=== PATIENT | female | born 1945 ===

== ENCOUNTER 2025-06-29 10:52 | Outpatient (AMB) | payer MEDICARE, OTHER, SELFPAY ==
--- OUTSIDE RECORDS SUMMARY | 2025-06-28 10:43 | XMS_ITS | Encounter Summary ---
Author Organization [facility] Address [address] [place] [address] Care Team Providers Care Renewable Energy Division Manager Name Role Phone Elsewhere, Pcp Primary Care Provider Unavailabl e Reason for Referral * MRI/CAT/PET Scan (Routine) - Closed Specialty Diagnoses / Procedures Referred By Kayla simmons Referred To Contact Radiology Diagnoses Impairment Cognitive Mild Procedures PET MR Brain Focused without IV Contrast Duke Fan M.D. [address] [place] [address] Phone: tel: fax: [facility] Referral ID Status Reason Start Date Expiration Date Visits Re quested Visits Authorized [id number] Closed 06/03/2025 09/03/2026 1 1 * Outpatient (Routine) - Closed Specialty Diagnoses / Procedures Referred By Kayla simmons Referred To Contact Diagnoses Impairment Cognitive Mild Procedures PET MR Brain Focused Amyloid Duke Fan M.D. [address] [place] [address] Phone: tel: fax: [facility] Referral ID Status Reason Start Date Expiration Date Visits Re quested Visits Authorized [id number] Closed 06/03/2025 09/03/2026 1 1 Reason for Visit * Outpatient (Routine) - Closed Specialty Diagnoses / Procedures Referred By Kayla t Referred To Contact Diagnoses Impairment Cognitive Mild Procedures PET MR Brain Focused Amyloid Duke Fan M.D. [address] [place] [address] Phone: tel: fax: [facility] Referral ID Status Reason Start Date Expiration Date Visits Re quested Visits Authorized [id number] Closed 06/03/2025 09/03/2026 1 1 Encounter Details Date Type Department Care Team (Latest Contact Info) Description 06/28/2025 10:43 AM EST - 06/28/2025 11:59 PM [facility] Hospital Encounter Department of Radiology, [facility], in [place], [place] [address] [place] [address] Duke Fan M.D. [address] [place] [address] Impairment Cognitive Mild Discharge Disposition: Home or Self Care Social History Tobacco Use Types Packs/Day Years Used Date Smoking Tobacco: Never Smokeless Tobacco: Never Alcohol Use Standard Drinks/Week Comments Not Currently 0 (1 standard drink = 0.6 oz pur e alcohol) Socially 1 drink [facility] Utilities Answer Date Recorded In the past 12 months has [employer], gas, oil, or water [employer] threatened to shut off services in your home? No 10/06/2024 Hunger Vital Sign Answer Date Recorded Within the past 12 months, y ou worried that your food would run out before you got the money to buy more. Never true 10/07/19 25 Within the past 12 months, t he food you bought just didn't last and you didn't have money to get more. Never true 10/06/2024 PRAPARE - Transportation Answer Date Re corded In the past 12 months, has l ack of transportation kept you from medical appointments or from getting medications? No 08/2024 In the past 12 months, has l ack of transportation kept you from meetings, work, or from getting things needed for daily living? No 10/06/2024 Housing Stability Answer Date Recorded What is your living situation today? 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 No 06/28/2025 10:43 AM Giorgi Saxena Do you use an assisted devic e to walk? (Walker, cane, wheelchair, crutch) No 06/28/2025 10:43 AM Giorgi Mcallister Today, do you feel any of th e following? Weak, dizzy, shaky, or unsteady? No 06/28/2025 10:43 AM Giorgi Gómez Have you taken any medicatio n within the last 6 hours which may make you feel drowsy? Such as sleep, pain, or anxiety medication No 06/28/2025 10:43 AM iGorgi Saxena documented as of this encounter Medications at Time of Discharge esomeprazole (NexIUM) [address] capsule Take 1 capsule (20 mg total) by mouth 2 (two) times a day before morning and evening meals. 60 capsule 3 05/24/2025 rifAXIMin (Xifaxan) 550 mg tabletIndications: Pain Generalized Abdominal,Gastro-E sophageal Reflux Disease With Esophagitis Without Bleeding Take 1 tablet (550 mg total) by mouth 2 (two) times a day. 28 tablet 02/23/2025 Synthroid 88 mcg tablet Take 1 tablet by mouth daily before morning meal. documented as of this encounter Plan of Treatment Upcoming Encounters Date Type Department Care Team (Latest Contact Info) Description 07/21/2025 9:40 AM EST Virtual Visit Preoperative Clinic in [place], [place] [address] [place] [address] Kiki Hood M.D. [address] [place] [address] 08/03/2025 12:00 PM EST Appointment Department of Laboratory Medicine and Pathology, [facility], in [place] [address] [place] [phone] Kiki Hood M.D. [address] [place] [address] 08/03/2025 1:00 PM EST Ancillary Procedure Department of Ophthalmology in [place] [address] [place] [address] Kiki Hood M.D. [facility] [place] [address] 08/03/2025 2:00 PM EST Ancillary Procedure Department of Cardiovascular Diseases in [place] [address] [place] [phone] Kiki Hood M.D. [facility] [place] [address] 08/03/2025 3:20 PM EST Comprehensive Visit Preoperative Clinic in [place] [address] [place] [address] Kiki Hood M.D. [facility] [place] [address] [place] [address] 08/15/2025 8:15 AM EST Hospital Encounter [facility] MAIN OR [facility] [place] [address] Kiki Hood M.D. [facility] [place] [address] 08/15/2025 8:15 AM EST - 08/15/2025 10:45 AM EST Surgery FLA [facility] 01 MAIN OR [address] [place] [address] Kiki Hood M.D. [address] [place] [address] BILATERAL EXTERNAL PTOSIS REPAIR 08/30/2025 3:15 PM EST Office Visit Department of Ophthalmology in [place], [place] [address] [place] [address] Kiki Hood M.D. [address] [place] [address] Scheduled Procedures Name Priority Associated Diagnoses Date/Ti me REPAIR PTOSIS Ptosis Eyelid Bilateral 08/15/2025 8:15 AM EST documented as of this encounter Goals Goal Patient Goal Type Associated Problems Recent Progress Patient-Stated? Author Autogenera abby Goal Care Plan Autogenerated Problem No Ida Chase documented as of this encounter Procedures Procedure Name Priority Date/Time Associated Diagnosis Comments PET MR BRAIN FOCUSED AMYLOID RAD - Routine (most inpatients and all outpatients) 06/28/2025 12:49 PM EST Impairment Cognitive Mild PET MR BRAIN FOCUSED WITHOUT IV CONTRAST RAD - Routine (most inpatients and all outpatients) 06/28/2025 12:49 PM EST Impairment Cognitive Mild documented in this encounter Results * PET MR Brain Focused without IV Contrast (06/28/2025 12:49 PM EST) Anatomical Region Laterality Modality Brain, Neuroradiology RST LO S, Nuclear Medicine ARZ LOS, Neuroradiology ARZ [facility], Neuroradiology [facility] N/A Nuclear Medicine, Magnetic Resonance, Magnetic Resonance Impressions 06/28/2025 3:23 PM EST Stable exam. Mild chronic microvascular ischemic changes. 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 Generalized age-related cerebral volume loss without lobar predilection. Narrative 06/28/2025 3:23 PM EST EXAM: PET MR BRAIN FOCUSED WITHOUT IV CONTRAST COMPARISON: MRI brain 10/23/2024 CT head and neck angiogram 10/23/2024. FINDINGS: No abnormal diffusion restriction. No abnormal foci of susceptibility signal loss to suggest microhemorrhage and cortical siderosis. Scattered foci of T2 FLAIR hyperintensities in the subcortical and periventricular white matter of bilateral cerebral hemisphere consistent with mild chronic microvascular ischemic changes. Mild prominence of the ventricles, cerebral sulci and fissures secondary to generalized brain volume loss expected for patient's age. No asymmetric hippocampi volume loss. No hydrocephalus and extra-axial collection seen. The flow voids within the major intracranial vasculature are preserved. Bilateral orbits normal. Paranasal sinuses and mastoids are clear. Procedure Note Brianna Ramos M.B.B.S., M.D. - 06/28/2025 EXAM: PET MR BRAIN FOCUSED WITHOUT IV CONTRAST COMPARISON: MRI brain 10/23/2024 CT head and neck angiogram 10/23/2024. FINDINGS: No abnormal diffusion restriction. No abnormal foci ofsusceptibility signal loss to suggest microhemorrhage and corticalsiderosis. Scattered foci of T2 FLAIR hyperintensities in the subcorticaland periventricular white matter of bilateral cerebral hemisphereconsistent with mild chronic microvascular ischemic changes. Mildprominence of the ventricles, cerebral sulci and fissures secondary togeneralized brain volume loss expected for patient's age. No asymmetrichippocampi volume loss. No hydrocephalus and extra-axial collection seen.The flow voids within the major intracranial vasculature are preserved.Bilateral orbits normal. Paranasal sinuses and mastoids are clear. IMPRESSION: Stable exam. Mild chronic microvascular ischemic changes. 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 Generalized age-relatedcerebral volume loss without lobar predilection. us [facility] YEPEZ MRI PROCEDURES Final Resu lt * PET MR Brain Focused Amyloid (06/28/2025 12:49 PM EST) Anatomical Region Laterality Modality Brain, Nuclear Medicine PET RST LOS, PET ARZ LOS, Neuroradiology ARZ LOS, Nuclear Medicine PET FLA LOS, Nuclear Medicine N/A Nuclear Medicin e, Magnetic Resonance, Magnetic Resonance Impressions 06/29/2025 9:42 AM EST Abnormal study. 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 This is based on visual assessment despite centiloid value with marked avidity in the left occipital lobe cortex greater than adjacent turner matter as well as global decreased contrast in the cerebral hemispheres. Given the discordance from centiloid score, consider a Tau PET study, if clinically warranted. NOTE: A negative florbetapir study indicates sparse to no neuritic plaques and is considered inconsistent with Alzheimer disease at the time of the study. A negative study reduces the likelihood that the patient's cognitive impairment is due to Alzheimer disease. A positive florbetapir study indicates moderate to frequent neuritic plaques, which is the amount usually present in patients with Alzheimer disease. However, a positive florbetapir study does not establish the diagnosis of Alzheimer disease. Moderate to frequent neuritic plaques can also be present in patients with other neurological conditions as well as in older people with normal cognition. Reference: [email or web address] Narrative 06/29/2025 9:42 AM EST REVISED REPORT: EXAM: PET MR BRAIN FOCUSED AMYLOID RADIOPHARMACEUTICAL/MEDS: Route: intravenous florbetapir F 18 injection (F-18 Amyvid),10.04 millicurie Circulation time: 36 minutes Arms Up or Down: Down TECHNIQUE: PET images of the brain were obtained, with coronal, axial, sagittal and 3D reconstruction with or without AI assistance. Multisequence MR data of the same region was collected for attenuation-correction and anatomic correlation purposes. [email or web address] software was utilized for additional post-processing and analysis, as needed. COMPARISON: MR brain 06/28/2025, 10/13/2024 INDICATION: Undergoing clinical workup for Alzheimer's disease. Initial treatment strategy. FINDINGS: There is normal cortical to white matter contrast in the cerebellum. There is decreased cortical-white matter contrast in the cerebral hemispheres. This is seen in at least 2 regions. Furthermore, there is at least one area of cortical activity greater than adjacent white matter, along the left occipital lobe. Incidental anatomic findings: Limited brain MR performed simultaneously was interpreted separately with report available under accession # [id number]. Centiloid value: 3.2 Procedure Note Esteban Da Silva M.D., M.B.A. - 06/29/2025 REVISED REPORT: EXAM: PET MR BRAIN FOCUSED AMYLOID RADIOPHARMACEUTICAL/MEDS: Route: intravenous florbetapir F 18 injection (F-18 Amyvid),10.04 millicurie Circulation time: 36 minutes Arms Up or Down: Down TECHNIQUE: PET images of the brain were obtained, with coronal, axial,sagittal and 3D reconstruction with or without AI assistance.Multisequence MR data of the same region was collected forattenuation-correction and anatomic correlation purposes. [email or web address] software was utilized for additional post-processing andanalysis, as needed. COMPARISON: MR brain 06/28/2025, 10/13/2024 INDICATION: Undergoing clinical workup for Alzheimer's disease. Initial treatment strategy. FINDINGS: There is normal cortical to white matter contrast in thecerebellum. There is decreased cortical-white matter contrast in the cerebralhemispheres. This is seen in at least 2 regions. Furthermore, there is atleast one area of cortical activity greater than adjacent white matter,along the left occipital lobe. Incidental anatomic findings: Limited brain MR performed simultaneouslywas interpreted separately with report available under accession #[id number]. Centiloid value: 3.2 IMPRESSION: Abnormal study. There is moderate to frequent beta-amyloid neuritic plaqueburden. This is based on visual assessment despite centiloid value withmarked avidity in the left occipital lobe cortex greater than adjacentgray matter as well as global decreased contrast in the cerebralhemispheres. Given the discordance from centiloid score, consider a Tau PET study, ifclinically warranted. NOTE: A negative florbetapir study indicates sparse to no neuritic plaquesand is considered inconsistent with Alzheimer disease at the time of thestudy. A negative study reduces the likelihood that the patient'scognitive impairment is due to Alzheimer disease. A positive florbetapirstudy indicates moderate to frequent neuritic plaques, which is the amountusually present in patients with Alzheimer disease. However, a positiveflorbetapir study does not establish the diagnosis of Alzheimer disease.Moderate to frequent neuritic plaques can also be present in patients withother neurological conditions as well as in older people with normalcognition. Reference: [email or web address] Duke YEPEZ NM PROCEDURES Edited Resu lt - Final documented in this encounter Visit Diagnoses Diagnosis Impairment Cognitive Mild Ptosis Eyelid Bilateral documented in this encounter Administered Medications Inactive Administered Medications - up to 3 most recent administrations Medication Order MAR Action Action Date Dose Rate Site florbetapir F 18 injection (F-18 Amyvid) 9-11 millicurie, intravenous, Once, On Tu06/28/25 at 1115, For 1 dose, Imaging Protocol Orders Given 06/28/2025 11:02 AM EST 10.04 millicuries Right Antecubital documented in this encounter Additional Health Concerns Active Problems Noted Date Diagnosed Date Autogenerated Problem 05/16/2025 documented as of this encounter Care Teams Renewable Energy Division Manager Relationship Specialty Start Date End Date Elsewhere, Pcp PCP - General Internal Medicine 08/25/24 documented as of this encounter
--- OUTSIDE RECORDS SUMMARY | 2025-06-29 10:56 | XMS_ITS | Encounter Summary ---
Author Organization [facility] Address [address] [place] [address] Care Team Providers Care Laborer Heading Name Role Phone Elsewhere, Pcp Primary Care Provider Unavailabl e Reason for Referral * Outpatient (Routine) - Closed Specialty Diagnoses / Procedures Referred By Contact Referred To Contact Gastroenterology and Hepatology Tylor Urbano M.D. [address] [place] [phone] Phone: tel: fax: [facility] Referral ID Status Reason Start Date Expiration Date Visits Re quested Visits Authorized [id number] Closed 05/30/2025 11/29/2026 1 1 Scheduling Instructions Can see FELIPE Encounter Details Date Type Department Care Team (Latest Contact Info) Description 05/30/2025 Clinical Communication Division of Gastroenterology and Hepatology in [place], [place] [address] [place] [phone] Tylor Urbano M.D. [address] [place] [address] Social History Tobacco Use Types Packs/Day Years Used Date Smoking Tobacco: Never Smokeless Tobacco: Never Alcohol Use Standard Drinks/Week Comments Not Currently 0 (1 standard drink = 0.6 oz pur e alcohol) Socially 1 drink [facility] Utilities Answer Date Recorded In the past 12 months has [employer], [employer], or [employer] threatened to shut off services in your [...] your living situation today? I have a 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 [address] [place] [phone] 08/03/2025 12:00 PM EST Appointment Department of Laboratory Medicine and Pathology, [facility], in [address] [phone] Kiki Hood M.D. [address] [place] [phone] 08/03/2025 1:00 PM EST Ancillary Procedure Department of Ophthalmology in [address] [place] [address] Kiki Hood M.D. [address] [place] [phone] 08/03/2025 2:00 PM EST Ancillary Procedure Department of Cardiovascular Diseases in [place], [place] [address] [place] [phone] Kiki Hood M.D. [address] [place] [address] 08/03/2025 3:20 PM EST Comprehensive Visit Preoperative Clinic in [place], [place] [address] [place] [address] Kiki Hood M.D. [address] [place] [address] 08/15/2025 8:15 AM EST Hospital Encounter [facility] 01 MAIN OR [address] [place] [address] Kiki Hood M.D. [address] [place] [address] 08/15/2025 8:15 AM EST - 08/15/2025 10:45 AM EST Surgery [facility] 01 MAIN OR [address] [place] [address] Kiki Hood M.D. [address] [place] [address] BILATERAL EXTERNAL PTOSIS REPAIR 08/30/2025 3:15 PM EST Office Visit Department of Ophthalmology in [place], [place] [address] [place] [phone] Kiki Hood M.D. [address] [place] [phone] Scheduled Procedures Name Priority Associated Diagnoses Date/Ti me REPAIR PTOSIS Ptosis Eyelid Bilateral 08/15/2025 8:15 AM EST Scheduled Referrals Name Type Priority Associated Diagnoses Order Schedule Gastroenterology and Hepatology office visit (clinic) Outpatient Referral Routine Expected: 05/30/2025, Expires: 08/30/2026 documented as of this encounter Goals Goal Patient Goal Type Associated Problems Recent Progress Patient-Stated? Author Autogenera abby Goal Care Plan Autogenerated Problem No Ida Chase documented as of this encounter Visit Diagnoses Not on filedocumented in this encounter Additional Health Concerns Active Problems Noted Date Diagnosed Date Autogenerated Problem 05/16/2025 documented as of this encounter Care Teams Laborer Heading Relationship Specialty Start Date End Date Elsewhere, Pcp PCP - General Internal Medicine 08/25/24 documented as of this encounter
--- OUTSIDE RECORDS SUMMARY | 2025-06-29 10:57 | XMS_ITS | Encounter Summary ---
Author Organization [facility] Address [address] [place] [address] Care Team Providers Care Boarder Hand Name Role Phone Elsewhere, Pcp Primary Care Provider Unavailabl e Encounter Details Date Type Department Care Team (Latest Contact Info) Description 05/30/2025 Clinical Communication Division of Gastroenterology and Hepatology in [place], [place] [address] [place] [address] Tylor Urbano M.D. [address] [place] [address] Social History Tobacco Use Types Packs/Day Years Used Date Smoking Tobacco: Never Smokeless Tobacco: Never Alcohol Use Standard Drinks/Week Comments Not Currently 0 (1 standard drink = 0.6 oz pur e alcohol) Socially 1 drink [facility] Utilities Answer Date Recorded In the past 12 months has e [employer], gas, oil, or water [employer] threatened to shut off services in your [...] your living situation today? 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 [facility] [place] [address] 08/03/2025 12:00 PM EST Appointment Department of Laboratory Medicine and Pathology, [facility] in [place] [address] [place] [phone] Kiki Hood M.D. [facility] [place] [phone] 08/03/2025 1:00 PM EST Ancillary Procedure Department of Ophthalmology in [place] [address] [place] [phone] Kiki Hood M.D. [facility] [place] [address] 08/03/2025 2:00 PM EST Ancillary Procedure Department of Cardiovascular Diseases in [place] [address] [place] [phone] Kiki Hood M.D. [facility] [place] [address] 08/03/2025 3:20 PM EST Comprehensive Visit Preoperative Clinic in [place], [place] [address] [place] [phone] Kiki Hood M.D. [address] [place] [address] 08/15/2025 8:15 AM EST Hospital Encounter [facility] MAIN OR [address] [place] [phone] Kiki Hood M.D. [facility] [place] [phone] 08/15/2025 8:15 AM EST - 08/15/2025 10:45 AM EST Surgery [place] [address] MAIN OR [address] [place] [phone] Kiki Hood M.D. [facility] [place] [address] BILATERAL EXTERNAL PTOSIS REPAIR 08/30/2025 3:15 PM EST Office Visit Department of Ophthalmology in [place] [address] [place] [address] Kiki Hood M.D. [facility] [place] [address] Scheduled Procedures Name Priority Associated Diagnoses Date/Ti [...] documented as of this encounter Care Teams Boarder Hand Relationship Specialty Start Date End Date Elsewhere, Pcp PCP - General Internal Medicine 08/25/24 documented as of this encounter
--- OUTSIDE RECORDS SUMMARY | 2025-06-29 10:57 | XMS_ITS | Encounter Summary ---
Author Organization [facility] Address [address] [place] [address] Care Team Providers Care Guidance Services Coordinator Name Role Phone Elsewhere, Pcp Primary Care Provider Unavailabl e Encounter Details Date Type Department Care Team (Latest Contact Info) Description 06/29/2025 Clinical Communication Division of Gastroenterology and Hepatology in [place], [place] [address] [place] [address] Danielle Brunson, PAlexys-C., M.S. [address] [place] [address] Social History Tobacco Use Types Packs/Day Years Used Date Smoking Tobacco: Never Smokeless Tobacco: Never Alcohol Use Standard Drinks/Week Comments Not Currently 0 (1 standard drink = 0.6 oz pur e alcohol) Socially 1 drink [facility] Utilities Answer Date Recorded In the past 12 months has e [employer], gas, oil, or water [employer] threatened to shut off services in your [...] your living situation today? 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 [facility] [place] [phone] 08/03/2025 12:00 PM EST Appointment Department of Laboratory Medicine and Pathology, [facility] in [place] [address] [place] [address] Kiki Hood M.D. [address] [place], [place] [address] [place] [address] 08/03/2025 1:00 PM EST Ancillary Procedure Department of Ophthalmology in [place] [address] [place] [address] Kiki Hood M.D. [facility] [place] [address] 08/03/2025 2:00 PM EST Ancillary Procedure Department of Cardiovascular Diseases in [place] [address] [place] [phone] Kiki Hood M.D. [facility] [place] [address] 08/03/2025 3:20 PM EST Comprehensive Visit Preoperative Clinic in [place], [place] [address] [place] [phone] Kiki Hood M.D. [address] [place] [phone] 08/15/2025 8:15 AM EST Hospital Encounter [facility] MAIN OR [address] [place] [phone] Kiki Hood M.D. [facility] [place] [address] 08/15/2025 8:15 AM EST - 08/15/2025 10:45 AM EST Surgery [facility] MAIN OR [facility] [place] [address] Kiki Hood M.D. [facility] [place] [phone] BILATERAL EXTERNAL PTOSIS REPAIR 08/30/2025 3:15 PM EST Office Visit Department of Ophthalmology in [place], [place] [address] [place] [phone] Kiki Hood M.D. [facility] [place] [address] Scheduled Procedures Name Priority Associated Diagnoses Date/Ti [...] documented as of this encounter Care Teams Guidance Services Coordinator Relationship Specialty Start Date End Date Elsewhere, Pcp PCP - General Internal Medicine 08/25/24 documented as of this encounter
--- OUTSIDE RECORDS SUMMARY | 2025-06-29 10:57 | XMS_ITS | Clinical Summary ---
[facility] Organization [facility] Address [address] [place] [address] Care Team Providers Care Mandate Retail Service Merchandiser Name Role Phone Tylor Marmolejo MD Primary Care Provider + Allergies Active Allergy Reactions Criticality Noted Date Comments Fexofenadine-Pseudoephed Er 12/15/19 25 Glaucoma Penicillins 07/21/2022 Sulfa Antibiotics 07/21/2022 Medications hydrOXYzine HCl (Atarax) 10 MG tabletIndications :Medication refill Take 1 tablet (10 mg total) by mouth 1 (one) time each day. 30 tablet 2 Active Additional Information Patient not taking.Reported on 05/13/2025 Synthroid 88 MCG tabletIndications :Acquired hypothyroidism Take 1 tablet (88 mcg total) by mouth 1 (one) time each day. 90 tablet 1 Active esomeprazole (NexIUM) [address] capsule TAKE 1 CAPSULE (20 MG TOTAL) BY MOUTH 2 (TWO) TIMES A DAY BEFORE MORNING AND EVENING MEALS. 025 Active omeprazole (PriLOSEC) [address] capsule Take 1 capsule (20 mg total) by mouth before breakfast and before evening meal. Do not crush or chew. Active metroNIDAZOLE (Flagyl) 500 MG tablet Active ketoconazole (NIZOral) 2 % cream APPLY TO RASH ON AFFECTED AREA TWICE DAILY X 2 WEEKS Active fluconazole (Diflucan) 150 MG tablet 11/06/2 025 Active atorvastatin (Lipitor) 40 MG tabletIndications :Mixed hyperlipidemia TAKE 1 TABLET BY MOUTH 1 TIME EACH DAY. 90 tablet 1 025 Active atorvastatin (Lipitor) 40 MG tablet Take 1 tablet (40 mg total) by mouth 1 (one) time each day. 90 tablet 1 025 2024 Discontinued Active Problems Patient Care Coordination No te Formatting of this note migh t be different from the original. SMR-Insurance Alerts: SMR:Medicare - Medicare Secondary, No LT if Neuropathy, Neuritis or Neuroma, No Test and Measures and Group Therapy(TPG) together, 8 vsts after Eval, then Progress Summary, Acupuncture covered, MD signature required Problem Noted Date Diagnosed Date Medicare annual wellness visit, subsequent 04/08 Assessment & Plan (04/08/2025 9:51 AM EDT): Medicare wellness visit note reviewed at length. No falls recently. Unfortunately she does not have a living will. We did discuss the importance of this. She does not smoke. Does not drink any alcohol. Not feeling sad or depressed. She tells me her colonoscopies up-to-date. She had a breast MRI earlier this year which was negative. Immunizations reviewed. She has not really been getting any immunizations. We talked about what she is eligible for which he would be COVID-19, flu vaccine, RSV, Shingrix, Prevnar 20. She says she will think about those. We did talk about the benefits of regular exercise on her 50 minutes per week and a healthy diet. Elevated LFTs 04/08/2025 Assessment & Plan (04/08/2025 9:50 AM EDT): Liver function tests slightly elevated. She was just on a cruise. She was also on an antibiotic. I am not really too concerned about it. But she wants to recheck. So we will do a CMP in the next 4 weeks. Essential hypertension 12/14/2024 Assessment & Plan (04/08/2025 9:49 AM EDT): Initial blood pressure elevated. Repeat blood pressure was good. Continue lifestyle modification for blood pressure control. Assessment & Plan (12/14/2024 9:39 AM EDT): Initial blood pressure was slightly elevated. Repeat was improved. Still meets the definition of hypertension. She is not on any medication currently. No changes here today. Lifestyle modification for blood pressure control encouraged. Recheck 6 months. Labs ordered for 6 months to include CBC, TSH, CMP and lipid panel. Hypertension 12/14/2024 Generalized anxiety disorder 12/14/2024 Carotid disease, bilateral 12/14/2024 Assessment & Plan (04/08/2025 9:49 AM EDT): Most recent carotid ultrasound a few months ago showed less than 50% blockage. Continue to control risk factors aggressively. Assessment & Plan (12/14/2024 9:40 AM EDT): She has a history of carotid artery disease bilaterally. With 50% stenosis on an ultrasound that was done in 2020. Her eye doctor states that she had some vision episodes. They would like to see if she could get another carotid ultrasound. So I did order that. We will contact her with the results. Bursitis of left hip 12/14/2024 Assessment & Plan (12/14/2024 9:41 AM EDT): Being followed by pain management. Apparently she is going to get an injection for her hip. Alteration in vision 12/14/2024 Herniated lumbar intervertebral disc 11/15/2024 Hyperreflexia 11/15/2024 Lumbar radiculopathy 11/15/2024 Numbness of lower extremity 11/15/2024 Sacroiliac joint pain 11/15/2024 Assessment & Plan (04/08/2025 9:48 AM EDT): Has been followed by pain management the [facility]. Assessment & Plan (12/14/2024 9:39 AM EDT): Currently being followed and managed by the [facility] pain management. 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 Little bit worse than before. She has stopped her atorvastatin for about a month because she was not feeling well. She wants to recheck her lipid panel. We are going to ordered again for 4 weeks. Assessment & Plan (12/14/2024 9:41 AM EDT): Lipid panel ordered for 6 months. She is on statin therapy. Assessment & Plan (09/06/2024 8:55 AM EST): She is on statin therapy. Lipid panel ordered. We will contact her with the results. Otherwise I will see her back in 3 months. Valvular heart disease 09/06/2024 Assessment & Plan (04/08/2025 9:48 AM EDT): Currently stable issue. Followed by Cardiology Assessment & Plan (12/14/2024 9:39 AM EDT): Stable issue. Followed by Cardiology. Assessment & Plan (09/06/2024 8:54 AM EST): Stable on followed by Cardiology Vaginal vault hematoma 10/17/2023 Increased frequency of urination 10/16/2023 Bacterial vaginosis 11/08/2022 Vaginal discharge 11/06/2022 Chronic cystitis 09/02/2022 Female cystocele 09/02/2022 Incomplete emptying of bladder 09/02/2022 Incontinence of feces 09/02/2022 Pain in pelvis 09/02/2022 Muscle weakness 09/02/2022 Spasm 09/02/2022 Vaginal atrophy 09/02/2022 Lateral epicondylitis of right elbow 02/20/2022 Enteritis 03/14/2021 Hypothyroidism 03/14/2021 Assessment & Plan (04/08/2025 9:49 AM EDT): TSH normal at 0.509. No change. Continue Synthroid Assessment & Plan (12/14/2024 9:41 AM EDT): Most recent TSH was normal at 1.3. No changes. TSH ordered again for 6 months Assessment & Plan (09/06/2024 8:55 AM EST): TSH ordered. Gastroesophageal reflux disease 03/14/2021 Assessment & Plan (04/08/2025 9:49 AM EDT): Patient had endoscopies. She had esophagitis. She was treated with an antibiotic as well as Nexium. She is feeling much better from this standpoint. This is followed by Gastroenterology. Assessment & Plan (12/14/2024 9:41 AM EDT): She has been seeing Gastroenterology. Currently this is stable but she has stopped taking the famotidine. Assessment & Plan (09/06/2024 8:54 AM EST): She is taking generic famotidine. This is not stable. She continues to have abdominal discomfort. She has seen a senior lead developer. She had a sigmoidoscopy. She may need endoscopy. I can not tell if she has had that. She has been on multiple PPIs as well. She has been in the emergency room for diarrhea as well. She does have an appointment next week with Gastroenterology. I told her she should keep that appointment. She needs to ask them all the same question she asked me. At this point in time I had nothing further to add at this point. Continue with the famotidine for now. But this needs further evaluation by the senior lead developer. We discussed this at length here today. Memory impairment 03/14/2021 Resolved Problems Problem Noted Date Diagnosed Date Resolved Date Borderline high blood pressure 12/14/2024 12/14/2024 Paresis of single lower extremity 11/15/2024 12/14/2024 Encounters Date Type Department Care Team Description 06/29/2025 Refill [facility] at [address] [place] [address] Tylor Marmolejo MD Mixed hyperlipidemia (Primary Dx) 06/17/2025 Telephone [facility] at [address] [place] [phone] Tylor Marmolejo MD 05/16/2025 11:45 AM EST Lab [facility] [address] [place] [phone] Chronic kidney disease, stage 3 unspecified (Primary Dx) 05/13/2025 9:30 AM EST Office Visit [facility] at [address] [place] [address] Levy Marr PA-C Impingement syndrome involving patellar fat pad of right knee (Primary Dx); Chronic pain of right knee 05/13/2025 7:45 AM EST Lab [facility] [address] [place] [phone] Mixed hyperlipidemia; Increased frequency of urination 05/13/2025 Telephone [facility] at [address] [place] [phone] Tylor Marmolejo MD Med Refill 05/13/2025 Results Follow-Up [facility] at [address] [place] [phone] Tylor Marmolejo MD Comprehensive Metabolic Panel (CMP), Lipid Panel, Urinalysis with microscopic and reflex culture, Additional followed-up results: 2 04/29/2025 Telephone [facility] at [address] [place] [address] Tylor Marmolejo MD New Referral Request 04/24/2025 Results Follow-Up [facility] [address] [place] [phone] Ramesh Davies APRN Urine culture 04/22/2025 10:40 AM EDT Office Visit [facility] [address] [place] [phone] Zandra Fung APRN Urinary tract infection without hematuria, site unspecified (Primary Dx); Vaginal discharge 04/21/2025 3:30 PM EDT Evaluation [facility] [place] [address] [place] [phone] Ramakrishna Wall, PT Sprain of medial collateral ligament of right knee, initial encounter (Primary Dx) 04/18/2025 11:30 AM EDT Treatment [facility] [place] [address] [address] Ramakrishna Wall, PT Sprain of medial collateral ligament of right knee, initial encounter (Primary Dx) 04/13/2025 3:00 PM EDT Treatment [facility] [place] [address] [phone] Ton Salinas, JOINER Sprain of medial collateral ligament of right knee, initial encounter (Primary Dx) 04/11/2025 9:30 AM EDT Treatment [facility] [place] [address] [phone] Shree Baptiste, JOINER Sprain of medial collateral ligament of right knee, initial encounter (Primary Dx) 04/08/2025 8:30 AM EDT Office Visit [facility] at [address] [phone] Tylor Marmolejo MD Medicare annual wellness visit, subsequent (Primary Dx); Overweight (BMI 25.0-29.9); Sacroiliac joint pain; Valvular heart disease; Essential hypertension; Bilateral carotid artery disease, unspecified type; Gastroesophageal reflux disease, unspecified whether esophagitis present; Acquired hypothyroidism; Mixed hyperlipidemia; Elevated LFTs; Increased frequency of urination 04/08/2025 Abstract [facility] at [address] [phone] Tylor Marmolejo MD 04/06/2025 11:30 AM EDT Treatment [facility] [place] [address] [phone] Regino Price, PT Sprain of medial collateral ligament of right knee, initial encounter (Primary Dx) 04/04/2025 12:30 PM EDT Treatment [facility] [place] [address] [phone] Regino Price, PT Sprain of medial collateral ligament of right knee, initial encounter (Primary Dx) 03/30/2025 11:30 AM EDT Treatment [facility] [place] [address] [place] [phone] Regino Price, PT Sprain of medial collateral ligament of right knee, initial encounter (Primary Dx) from Last 3 Months Immunizations Immunization Administration Dates Next Due Moderna SARS-CoV-2 Booster Vaccination 05/14/2021,08/17/2020,08/07/2020,2020 Moderna Sars-cov-2 Vaccinati on Abbr...: Moderna Sars* 09/04/2020,07/07/2020 Sars-cov-2, Unspecified 04/06/2021,11/04/2020, Family History Medical History Relation Name Comments Heart attack Father Relation Name Status Comments Father Social History Tobacco Use Types Packs/Day Years Used Date Smoking Tobacco: Never Smokeless Tobacco: Never Tobacco Cessation:Counseling Given: No Alcohol Use Standard Drinks/Week Comments Yes 0 (1 standard drink = 0.6 oz pur e alcohol) AUDIT-C Answer Date Recorded Q1: How often do you have a drink containing alc ohol? Monthly or less 04/08/2025 Q2: How many drinks containi ng alcohol do you have on a typical day when you are drinking? 1 or 2 04/08/2025 Q3: How often do you have si x or more drinks on one occasion? Never 04/08/2025 [facility] Housing Answer Date Recorded Living Situation Not on file 02/20/2023 Housing Problems Not on file 02/20/2023 [facility] Safety Answer Date Recorded Threatened Not on file 02/20/2023 Insulted Not on file 02/20/2023 Physically Hurt Not on file 02/20/2023 Scream Not on file 02/20/2023 Comments No Sex and Gender Information Value Date Recorded Sex Assigned at Not on file Legal Sex Female 2:23 PM EDT Gender Identity Not on file Sexual Orientation Not on file Last Filed Vital Signs Vital Sign Reading Time Taken Comments Blood Pressure 129/75 04/22/2025 10:34 AM EDT Pulse 78 04/22/2025 10:14 AM EDT Temperature 36.7 C (98.1 F) 04/22/2025 10:14 AM EDT Respiratory Rate 18 04/22/2025 10:14 AM EDT Oxygen Saturation 98% 04/22/2025 10:14 AM EDT Inhaled Oxygen Concentration - - Weight 62.1 kg (137 lb) 04/22/2025 10:14 AM EDT Height 152.4 cm (5') 04/22/2025 10:14 AM EDT Body Mass Index 26.76 04/22/2025 10:14 AM EDT Plan of Treatment Upcoming Encounters Date Type Department Care Team (Late st Contact Info) Description 10/11/2025 1:00 PM EDT Office Visit [facility] at [facility] [address] [facility] [place]Note 2] [address] [place] [address] Tylor Marmolejo MD 1 [facility] [place]Note 2] [address] [place] [address] Health Maintenance Due Date Last Done Comments Bone Density Scan 1945 DTaP/Tdap/Td Vaccines (1 - Tdap) 1964 Pneumococcal Vaccine: 50+ Years (1 of 1 - PCV) 1995 Zoster Vaccines (1 of 2) 1995 Respiratory Syncytial Virus (RSV) 60 years and older and/or patients (1 - 1-dose 75+ series) 2020 COVID-19 Vaccine ( season) 2025 05/14/2021, 04/06/2021, 11/04/2020, Additional history exists Depression Screening 04/08/2026 04/08/2025 Medicare Annual Wellness (AWV) 04/08/2026 04/08/2025 Lipid Panel 05/13/2030 05/13/2025, 03/08, 10/14/2024, Additional history exists HPV Vaccines Aged Out No longer eligi ble based on patient's age to complete this topic Hepatitis A Vaccines Aged Out No long er eligible based on patient's age to complete this topic Hepatitis B Vaccines Aged Out No long er eligible based on patient's age to complete this topic Influenza Vaccine Discontinued Meningococcal B Vaccine Aged Out No l onger eligible based on patient's age to complete this topic Meningococcal Vaccine Aged Out No bro matthieu eligible based on patient's age to complete this topic Respiratory Syncytial Virus (RSV) <20 months Aged Out No longer eligible based on patient's age to complete this topic Procedures Procedure Name Priority Date/Time Associated Diagnosis Comments URINALYSIS WITH REFLEX MICROSCOPIC (NO CULTURE) Routine 05/16/2025 11:47 AM EST Chronic kidney disease, stage 3 unspecified BASIC METABOLIC PANEL Routine 05/16/2025 11:45 AM EST Chronic kidney disease, stage 3 unspecified IA ARTHROCENTESIS ASPIR&/INJ MAJOR JT/BURSA W/O US Routine 05/13/2025 10:15 AM EST Impingement syndrome involving patellar fat pad of right knee Chronic pain of right knee BKR MICROSCOPIC, URINE (NUM) Routine 05/13/2025 7:47 AM EST Increased frequency of urination URINALYSIS WITH MICROSCOPIC AND REFLEX CULTURE Routine 05/13/2025 7:47 AM EST Increased frequency of urination URINE CULTURE Routine 05/13/2025 7:47 AM EST Increased frequency of urination LIPID PANEL Routine 05/13/2025 7:42 AM EST Mixed hyperlipidemia COMPREHENSIVE METABOLIC PANEL Routine 05/13/2025 7:42 AM EST Mixed hyperlipidemia URINE CULTURE Routine 04/22/2025 10:51 AM EDT Urinary tract infection without hematuria, site unspecified POC URINALYSIS DIPSTICK Routine 04/22/2025 10:20 AM EDT Urinary tract infection without hematuria, site unspecified TSH Routine 03/30/2025 6:58 AM EDT Acquired hypothyroidism CBC W/AUTO DIFF, REFLEX MANUAL DIFF IF INDICATED Routine 03/30/2025 6:58 AM EDT Essential hypertension LIPID PANEL Routine 03/30/2025 6:58 AM EDT Mixed hyperlipidemia COMPREHENSIVE METABOLIC PANEL Routine 03/30/2025 6:58 AM EDT Mixed hyperlipidemia from Last 3 Months Results * (ABNORMAL) Urinalysis with reflex microscopic (No Culture) (05/16/2025 11:47 AM EST) Color, Urine Light Yellow Colorless, Dark Yellow, Light Yellow, Yellow 05/16/2025 2:11 PM EST [facility] Clarity, Urine Clear Clear 05/16/2025 2:11 PM EST [facility] Leukocyte Esterase, Urine Trace Negative 05/16/2025 2:11 PM EST [facility] Nitrite, Urine Negative Negative 05/16/2025 2:11 PM EST [facility] Urobilinogen, Urine Normal Normal 05/16/2025 2:11 PM EST [facility] Protein, Qual, Urine Negative Negative 05/16/2025 2:11 PM EST [facility] pH, Urine 5.5 5.0 - 7.5 05/16/2025 2:11 PM EST [facility] Blood, Urine Negative Negative, Trace 05/16/2025 2:11 PM EST [facility] Specific [place], Urine <1.005(L) 1.005 - 1.030 05/16/2025 2:11 PM EST [facility] Ketones, Urine Negative Negative 05/16/2025 2:11 PM EST [facility] Bilirubin, Urine Negative Negative 05/16/2025 2:11 PM EST [facility] Glucose, Qual, Urine Normal Negative 05/16/2025 2:11 PM EST [facility] Urine Urine specimen obtained by clean catch procedure / Unknown Non-blood Collection / Unknown 05/16/2025 11:47 AM EST 05/16/2025 11:47 AM EST us Devon Mccray MD LAB URINE ORDERABLES Final Resul t [facility] [address] [place] [address], * Basic Metabolic Panel (05/16/2025 11:45 AM EST) Sodium 138 136 - 145 mmol/L 05/16/2025 2:57 PM EST [facility] Potassium 4.2 3.5 - 5.1 mmol/L 05/16/2025 2:57 PM EST [facility] Chloride 104 98 - 107 mmol/L 05/16/2025 2:57 PM EST [facility] Carbon Dioxide 24.2 22.0 - 29.0 mmol/L 05/16/2025 2:57 PM EST [facility] Anion Gap 10 3 - 20 mmol/L 05/16/2025 2:57 PM EST [facility] Glucose 89 70 - 99 mg/dL 05/16/2025 2:57 PM EST [facility] BUN 20.9 6.0 - 26.0 mg/dL 05/16/2025 2:57 PM EST [facility] Creatinine 0.88 0.70 - 1.20 mg/dL 05/16/2025 2:57 PM EST [facility] BUN/Creatinine Ratio 23.8 05/16/2025 2:57 PM EST [facility] Calcium 9.4 8.8 - 10.2 mg/dL 05/16/2025 2:57 PM EST [facility] Osmolality Calc 269 mosm/kg 2:57 PM EST [facility] eGFR 66.9 >=60.0 mL/min/{1. 73_m2} 05/16/2025 2:57 PM EST [facility] Comment: GFR calculated based on CKD-EPI 2020 Creatinine Equation Age (Years) Average GFR 20-29 116 mL/min/1.73 m2 30-39 107 mL/min/1.73 m2 40-49 99 mL/min/1.73 m2 50-59 93 mL/min/1.73 m2 60-69 85 mL/min/1.73 m2 70+ 75 mL/min/1.73 m2 Acceptable GFR: >= 60 mL/min/1.73 m2 Chronic Kidney Disease: <60 mL/min/1.73 m2 Kidney Failure: <15 mL/min/1.73 m2 Blood Venous blood specimen / Unknown 05/16/2025 11:45 AM EST 05/16/2025 11:45 AM EST Devon Mccray MD LAB BLOOD [place] [id number], * [place] ARTHROCENTESIS ASPIR&/INJ MAJOR JT/BURSA W/O US (05/13/2025 10:15 AM EST) Narrative Levy Marr PA-C - 05/13/2025 10:15 AM EST Levy Marr PA-C 05/13/2025 10:52 AM Large joint Injection or Arthrocentesis: R knee Date/Time: 05/13/2025 10:15 AM Performed by: Levy Marr PA-C Authorized by: Lvey Marr PA-C Procedure discussed: discussed risks, benefits, and alternatives Consent Given by: Patient Timeout: timeout called immediately prior to procedure Prep: patient was prepped and draped in usual sterile fashion Indications: Pain Needle Size: 22 G Guidance: No device used Approach: Superior and medial Location: Knee Laterality: Right Site: R knee Anesthesia: Anesthesia method: Topical application Topical anesthetic: Ethyl chloride spray Anesthetics: 2 mL lidocaine 1 %; 2 mL ropivacaine 0.5% Steroids: 1 mL methylPREDNISolone acetate 40 MG/ML Specimen collected: no Post-procedure details: Dressing: Adhesive bandage Procedure completion: Tolerated well, no immediate complications Procedure: The skin was prepped in the sterile fashion. Topical anesthesia was achieved with ethyl chloride. A 25 gauge needle was inserted into the joint via anterior medial approach. The site was injected with a mixture of 2 mL of 1% lidocaine, 40 mg methylprednisolone. The injection was administered without difficulty or complication, and a bandage was applied. The patient tolerated the procedure well and was instructed to avoid strenuous activity for the next 24 hours and to use ice, NSAIDs, or Tylenol for pain as needed. The patient will call immediately with any signs of infection or allergic reaction. Levy Marr PA-C IN CLINIC/BEDSIDE ORDER ROSLYN Final Result * Microscopic, urine (05/13/2025 7:47 AM EST) RBC, Urine 1 <=5 /HPF 05/13/2025 11:38 AM EST [facility] WBC, Urine 1 <=5 /HPF 05/13/2025 11:38 AM EST [facility] Bacteria, Urine None Seen None Seen /HPF 05/13/2025 11:38 AM EST [facility] Urine Urine specimen obtained by clean catch procedure / Unknown Non-blood Collection / Unknown 05/13/2025 7:47 AM EST 05/13/2025 7:47 AM EST Tylor Marmolejo MD LAB URINE ORDERABLES Fin al Result [facility] [address] [place] [address], * (ABNORMAL) Urinalysis with microscopic and reflex culture (05/13/2025 7:47 AM EST) Color, Urine Light Yellow Colorless, Dark Yellow, Light Yellow, Yellow 05/13/2025 11:38 AM EST [facility] Clarity, Urine Clear Clear 05/13/2025 11:38 AM EST [facility] Leukocyte Esterase, Urine 2+(A) Negative 05/13/2025 11:38 AM EST [facility] Nitrite, Urine Negative Negative 05/13/2025 11:38 AM EST [facility] Urobilinogen, Urine Normal Normal 05/13/2025 11:38 AM EST [facility] Protein, Qual, Urine Negative Negative 05/13/2025 11:38 AM EST [facility] pH, Urine 7.5 5.0 - 7.5 05/13/2025 11:38 AM EST [facility] Blood, Urine Negative Negative, Trace 05/13/2025 11:38 AM EST [facility] Specific [place], Urine 1.008 1.005 - 1.030 05/13/2025 11:38 AM EST [facility] Ketones, Urine Negative Negative 05/13/2025 11:38 AM [facility] Bilirubin, Urine Negative Negative 05/13/2025 11:38 AM [facility] Glucose, Qual, Urine Normal Negative 05/13/2025 11:38 AM [facility] Urine Urine specimen obtained by clean catch procedure / Unknown Non-blood Collection / Unknown 05/13/2025 7:47 AM EST 05/13/2025 7:47 AM EST Tylor Marmolejo MD LAB URINE ORDERABLES Fin al Result Performing Organization Address City/State/[facility] [place] [address], * Urine culture (05/13/2025 7:47 AM EST) Only the most recent of2 resultswithin the time period is included. Urine Culture Mixed Urogenital Emerita; probable contaminants, suggest recollection 05/15/2025 12:35 AM EST [facility] Urine Urine specimen obtained by clean catch procedure / Unknown Non-blood Collection / Unknown 05/13/2025 7:47 AM EST 05/13/2025 11:38 AM EST Tylor Marmolejo MD LAB MICROBIOLOGY - GENER AL ORDERABLES Final Result [facility] [address] [place] [address], * Lipid Panel (05/13/2025 7:42 AM EST) Only the most recent of2 resultswithin the time period is included. Triglycerides 88 <=150 mg/dL 05/13/2025 1:29 PM EST [facility] Cholesterol, Total 131.00 0.00 - 200.00 mg/dL 05/13/2025 1:29 PM EST [facility] HDL Cholesterol 42.80 >=40.00 mg/dL 05/13/2025 1:29 PM EST [facility] LDL Cholesterol, Calc 70.6 <=130.0 mg/dL 05/13/2025 1:29 PM EST [facility] Comment: Reference range <130 Normal 130-150 Borderline >159 High Risk The LDL result is calculated using the Friedewald equation Chol/HDL Ratio 3.1 05/13/2025 1:29 PM EST [facility] LDL/HDL Ratio 1.6 05/13/2025 1:29 PM EST [facility] VLDL, Calculated 18 mg/dL 05/13/20 25 1:29 PM EST [facility] Non-HDL Cholesterol 88 mg/dL 05/13/2025 1:29 PM EST [facility] Blood Venous blood specimen / Unknown Venipuncture / Unknown 05/13/2025 7:42 AM EST 05/13/2025 7:42 AM EST Tylor Marmolejo MD LAB BLOOD ORDERABLES Fin al Result [facility] [address] [place] [address], * Comprehensive Metabolic Panel (CMP) (05/13/2025 7:42 AM EST) Only the most recent of2 resultswithin the time period is included. Sodium 141 136 - 145 mmol/L 05/13/2025 1:29 PM EST [facility] Potassium 4.9 3.5 - 5.1 mmol/L 05/13/2025 1:29 PM [facility] Chloride 104 98 - 107 mmol/L 05/13/2025 1:29 PM [facility] Carbon Dioxide 27.4 22.0 - 29.0 mmol/L 05/13/2025 1:29 PM [facility] Anion Gap 10 3 - 20 mmol/L 05/13/2025 1:29 PM [facility] BUN 12.3 6.0 - 26.0 mg/dL 05/13/2025 1:29 PM [facility] Creatinine 0.92 0.70 - 1.20 mg/dL 05/13/2025 1:29 PM [facility] BUN/Creatinine Ratio 13.4 05/13/2025 1:29 PM [facility] Glucose 88 70 - 99 mg/dL 05/13/2025 1:29 PM [facility] Calcium 9.7 8.8 - 10.2 mg/dL 05/13/2025 1:29 PM [facility] AST 25 0 - 32 U/L 05/13/2025 1:29 PM [facility] ALT 27 0 - 33 U/L 05/13/2025 1:29 PM [facility] Alkaline Phosphatase 97 35 - 105 U/L 05/13/2025 1:29 PM [facility] Protein, Total 7.4 6.6 - 8.7 g/dL 05/13/2025 1:29 PM [facility] Albumin 4.27 3.50 - 5.20 g/dL 05/13/2025 1:29 PM [facility] Globulin 3.1 g/dL 05/13/2025 1:29 PM [facility] A/G Ratio 1.4 05/13/2025 1:29 PM [facility] Bilirubin, Total 0.36 0.00 - 1.20 mg/dL 05/13/2025 1:29 PM [facility] Osmolality Calc 272 mosm/kg 1:29 PM [facility] eGFR 63.5 >=60.0 mL/min/{1. 73_m2} 05/13/2025 1:29 PM EST [facility] Comment: GFR calculated based on CKD-EPI 2020 Creatinine Equation Age (Years) Average GFR 20-29 116 mL/min/1.73 m2 30-39 107 mL/min/1.73 m2 40-49 99 mL/min/1.73 m2 50-59 93 mL/min/1.73 m2 60-69 85 mL/min/1.73 m2 70+ 75 mL/min/1.73 m2 Acceptable GFR: >= 60 mL/min/1.73 m2 Chronic Kidney Disease: <60 mL/min/1.73 m2 Kidney Failure: <15 mL/min/1.73 m2 Blood Venous blood specimen / Unknown Venipuncture / Unknown 05/13/2025 7:42 AM EST 05/13/2025 7:42 AM EST Tylor Marmolejo MD LAB BLOOD [place] [address], * (ABNORMAL) POC Urinalysis dipstick, manually resulted (04/22/2025 10:20 AM EDT) Color, UA Light Yellow Clarity, UA Clear POC Urine Glucose Negative Negative, =100 mg/dL Bilirubin, UA POC Negative Negative Ketones, UA POC Negative Negative, Very large Specific [place], UA 1.010 1.010, 1.015, 1.020, 1.025, >=1.030 Blood, UA Trace(A) Negative pH, Urine POC 6.0 5.0, 5.5, 6.0, 6.5, 7.0 Protein, UA POC Negative mg/dL Urobilinogen, UA POC 0.2 EU per dL Nitrite, UA POC Negative Negative Leukocyte Esterase, UA Trace(A) Negative Urine Urine specimen obtained by clean catch procedure / Unknown 04/22/2025 10:20 AM EDT Sujatha Barney MD POINT OF CARE TEST ENTER/E DIT ORDERABLES Final Result * (ABNORMAL) CBC Auto Diff, Reflex Manual Diff if Indicated (03/30/2025 6:58 AM EDT) [facility] WBC 4.92 3.40 - 10.10 10*3/uL 03/30/2025 10:40 AM EDT [facility] RBC 5.24(H) 3.79 - 5.19 10*6/uL 03/30/2025 10:40 AM EDT [facility] Hemoglobin 15.0 11.6 - 15.4 g/dL 03/30/2025 10:40 AM EDT [facility] Hematocrit 45.6 35.9 - 46.1 % 03/30/2025 10:40 AM EDT [facility] MCV 87.0 83.7 - 99.5 fL 03/30/2025 10:40 AM EDT [facility] MCH 28.6 27.6 - 33.1 pg 03/30/2025 10:40 AM EDT [facility] MCHC 32.9 31.3 - 34.9 g/dL 03/30/2025 10:40 AM EDT [facility] Platelet Count 212 126 - 432 10*3/uL 03/30/2025 10:40 AM EDT [facility] MPV 11.2 9.2 - 12.2 fL 03/30/2025 10:40 AM EDT [facility] Neutrophils % 54.3 42.7 - 77.1 % 03/30/2025 10:40 AM EDT [facility] Lymphocytes % 34.6 12.1 - 45.3 % 03/30/2025 10:40 AM EDT [facility] Monocytes % 7.3 4.4 - 12.5 % 03/30/2025 10:40 AM EDT [facility] Eosinophils % 2.8 0.0 - 5.6 % 03/30/2025 10:40 AM EDT [facility] Basophils % 0.8 0.0 - 1.0 % 03/30/2025 10:40 AM EDT [facility] Neutrophils Absolute 2.67 1.40 - 6.80 10*3/uL 03/30/2025 10:40 AM EDT [facility] Lymphocytes Absolute 1.70 0.60 - 3.20 10*3/uL 03/30/2025 10:40 AM EDT [facility] Monocytes Absolute 0.36 0.20 - 0.90 10*3/uL 03/30/2025 10:40 AM EDT [facility] Eosinophils Absolute 0.14 0.00 - 0.60 10*3/uL 03/30/2025 10:40 AM EDT [facility] Basophil Absolute 0.04 0.00 - 0.10 10*3/uL 03/30/2025 10:40 AM EDT [facility] RDW SD 42.3 38.6 - 50.2 fL 03/30/2025 10:40 AM EDT [facility] NRBC % 0.0 0.0 - 0.2 % 03/30/2025 10:40 AM EDT [facility] Immature Granulocytes % 0.2 0.0 - 0.5 % 03/30/2025 10:40 AM EDT [facility] Immature Granulocytes Absolute 0.01 0.00 - 0.03 10*3/uL 03/30/2025 10:40 AM EDT [facility] Blood Venous blood specimen / Unknown Venipuncture / Unknown 03/30/2025 6:58 AM EDT 03/30/2025 6:58 AM EDT Tylor Maromlejo MD LAB BLOOD ORDERABLES Fin katie Result [facility] [address] [place] [address], * TSH (03/30/2025 6:58 AM EDT) TSH 0.509 0.270 - 4.200 u[IU]/mL 03/30/2025 12:09 PM EDT [facility] Blood Venous blood specimen / Unknown Venipuncture / Unknown 03/30/2025 6:58 AM EDT 03/30/2025 6:58 AM EDT Tylor Marmolejo MD LAB BLOOD ORDERABLES Fin al Result [facility] [address] [place] [address], from Last 3 Months Additional Health Concerns Infection Onset Date Last Indicated Gastrointestinal Rule-Out 08/27/20242024 Insurance MEDICARE [facility] [place] [id number] Care Teams Mandate Retail Service Merchandiser Relationship Specialty Start Date End Date Tylor Marmolejo MD PCP - General Family Medicine 09/06/24
--- OUTSIDE RECORDS SUMMARY | 2025-06-29 10:57 | XMS_ITS | Encounter Summary ---
Author Organization [facility] Address [address] [place] [address] Care Team Providers Care Science And Operations Officer Name Role Phone Tylor Marmolejo MD Primary Care Provider + Source Comments Please be aware that You and/or your organization are solely responsible for the use, security, privacy, and any decisions made with any information you receive from [employer] Encounter Details Date Type Department Care Team (Late st Contact Info) Description 10/26/2024 [facility] Health Information Management [address] [place] [address] Provider, Not In System, ZIG ZAG SPRING MACHINE OPERATOR-C Provider Not in System Social History Tobacco Use Types Packs/Day Years Used Date Smoking Tobacco: Never Smokeless Tobacco: Never Alcohol Use Standard Drinks/Week Comments Yes 0 (1 standard drink = 0.6 oz pur e alcohol) AUDIT-C Answer Date Recorded Q1: How often do you have a drink containing alc ohol? Monthly or less 10/12/2024 Q2: How many drinks containi ng alcohol do you have on a typical day when you are drinking? 1 or 2 10/12/2024 Q3: How often do you have si x or more drinks on one occasion? Less than monthly 10/12/2024 [facility] Housing Answer Date Recorded Living Situation Not on file 02/20/2023 Housing Problems Not on file 02/20/2023 [facility] Safety Answer Date Recorded Threatened Not on file 02/20/2023 Insulted Not on file 02/20/2023 Physically Hurt Not on file 02/20/2023 Scream Not on file 02/20/2023 Comments No Sex and Gender Information Value Date Recorded Sex Assigned at Not on file Legal Sex Female 2:23 PM EDT Gender Identity Not on file Sexual Orientation Not on file documented as of this encounter Plan of Treatment Upcoming Encounters Date Type Department Care Team (Late st Contact Info) Description 10/11/2025 1:00 PM EDT Office Visit [facility] Primary Care at [facility] [address] [facility] [address] [place] [address] Tylor Marmolejo MD [address] [facility] [address] [place] [address] documented as of this encounter Procedures Procedure Name Priority Date/Time Associated Diagnosis Comments HM MAMMOGRAPHY 11/24/2024 12:00 AM EDT documented in this encounter Results * HM Mammography (11/24/2024 12:00 AM EDT) Anatomical Region Laterality Modality Other us Not In System Provider ZIG ZAG SPRING MACHINE OPERATOR-C HEALTH MAINTENANCE Final Result documented in this encounter Visit Diagnoses Not on filedocumented in this encounter Additional Health Concerns Infection Onset Date Last Indicated Resolved Time Gastrointestinal Rule-Out 08/27/2024 08/27/2024 C. difficile Rule-Out 02/18/2025 02/18/20252024 4:42 PM EDT documented as of this encounter Care Teams Science And Operations Officer Relationship Specialty Start Date End Date Tylor Marmolejo MD PCP - General Family Medicine 09/06/24 documented as of this encounter
--- OUTSIDE RECORDS SUMMARY | 2025-06-29 10:57 | XMS_ITS | Clinical Summary ---
Author Organization [facility] Address [address] [place], [place] [id number] Phone Care Team Providers Care Welding Machine Operator Electroslag Name Role Phone Pcp, Unknown Primary Care Provider Unavailabl e Allergies Active Allergy Reactions Criticality Noted Date Comments Penicillin 07/12/2023 Sulfa (Sulfonamide Antibiotics) 07/07 Medications atorvastatin (LIPITOR) 40 MG tablet TAKE 1 TABLET BY MOUTH EVERYDAY Active SYNTHROID 88 mcg tablet Take 1 tablet by mouth every morning. Active timolol (TIMOPTIC) 0.5 % ophthalmic solution Active estradioL (ESTRACE) 0.01 % (0.1 mg/gram) vaginal cream INSERT ONE GRAM VAGINALLY EVERY OTHER DAY AT BEDTIME Active Social History Tobacco Use Types Packs/Day Years Used Date Smoking Tobacco: Never Assessed Education Answer Date Recorded Are you interested in more education? Not on aleisha e 07/12/2023 Are you concerned about learning? Not on file 07/12/2023 No 07/12/2023 No 07/12/2023 Digital Access Answer Date Recorded No 07/12/2023 No 07/12/2023 Reliable internet access at home? Not on file 07/12/2023 Device with a working camera? Not on file Comments Unknown Sex and Gender Information Value Date Recorded Sex Assigned at Not on file Legal Sex Female 9:19 AM EST Gender Identity Not on file Sexual Orientation Not on file Last Filed Vital Signs Vital Sign Reading Time Taken Comments Blood Pressure 131/85 07/12/2023 9:37 AM EST Pulse 94 07/12/2023 9:37 AM EST Temperature 37.1 C (98.7 F) 07/12/2023 9:37 AM EST Respiratory Rate 16 07/12/2023 9:37 AM EST Oxygen Saturation 98% 07/12/2023 9:37 AM EST Inhaled Oxygen Concentration - - Weight 60.8 kg (134 lb) 07/12/2023 9:37 AM EST Height 152.4 cm (5') 07/12/2023 9:37 AM EST Body Mass Index 26.17 07/12/2023 9:37 AM EST Plan of Treatment Health Maintenance Due Date Last Done Comments Adult Td,Tdap Booster 1945 LIPID PANEL 1945 DEPRESSION SCREENING 1957 SMOKING Hx and SMOKELESS TOB ACCO SCREENING 1958 HEPATITIS C SCREENING 1963 PNEUMOCOCCAL VACCINES (50+ y ears) (1 of 1 - PCV) 1995 ZOSTER VACCINES (1 of 2) 1995 OSTEOPOROSIS SCREENING INITI AL (ONE-TIME) 2010 RSV VACCINE (1 - 1-dose 75+ series) 2020 TSH LEVEL 08/17/2022 08/17/2021 INFLUENZA VACCINE (#1) 2025 COVID-19 VACCINE ( - 2024-2 6 season) 2025 HEPATITIS A VACCINES Aged Out No long er eligible based on patient's age to complete this topic HIB VACCINES Aged Out No longer eligi ble based on patient's age to complete this topic MENINGOCOCCAL VACCINES (ACWY) Aged Out No longer eligible based on patient's age to complete this topic MENINGOCOCCAL VACCINES (B) Aged Out N o longer eligible based on patient's age to complete this topic Medical Devices Not on file Insurance Care Teams Welding Machine Operator Electroslag Relationship Specialty Start Date End Date Pcp, Unknown PCP - General 07/12/23 Additional Source Comments The information contained in this document represents components of the legal health record. It is not the complete legal health record.[facility]
--- OUTSIDE RECORDS SUMMARY | 2025-06-29 10:57 | XMS_ITS | Encounter Summary ---
Author Organization [facility] Address [address] [place] [address] Care Team Providers Care Endo Tech Name Role Phone Tylor Marmolejo MD Primary Care Provider + Source Comments Please be aware that You and/or your organization are solely responsible for the use, security, privacy, and any decisions made with any information you receive from [employer] Encounter Details Date Type Department Care Team (Late st Contact Info) Description 05/13/2025 Results Follow-Up [facility] Primary Care at [facility] [address] [facility] [address] [place] [address] Tylor Marmolejo MD [address] [facility] [address] [place] [address] Comprehensive Metabolic Panel (CMP), Lipid Panel, Urinalysis with microscopic and reflex culture, Additional followed-up results: 2 Social History Tobacco Use Types Packs/Day Years [...] more drinks on one occasion? Never 04/08/2025 [facility] Housing Answer Date Recorded Living Situation Not on file 02/20/2023 Housing Problems Not on file 02/20/2023 [facility] Safety Answer Date Recorded Threatened Not on file 02/20/2023 Insulted Not on file 02/20/2023 Physically Hurt Not on file 02/20/2023 Scream Not on file 02/20/2023 Comments No Sex and Gender Information Value Date Recorded Sex Assigned at Not on file Legal Sex Female 2:23 PM EDT Gender Identity Not on file Sexual Orientation Not on file documented as of this encounter Miscellaneous Notes * Result Encounter Note - Miriam Cherry CMA - 05/16/2025 8:34 AM EST Lvm. * Result Encounter Note - Miriam Cherry CMA - 05/13/2025 4:07 PM EST Pt was informed and advised. Labs placed. documented in this encounter Plan of Treatment Upcoming Encounters Date Type Department Care Team (Late st Contact Info) Description 10/11/2025 1:00 PM EDT Office Visit [facility] Primary Care at [facility] [address] [facility] [address] [place] [address] Tylor Marmolejo MD [address] [facility] [address] [place] [address] documented as of this encounter Visit Diagnoses Not on filedocumented in this encounter Additional Health Concerns Infection Onset Date Last Indicated Resolved Time Gastrointestinal Rule-Out 08/27/2024 08/27/2024 Assessment Noted Time A fall risk assessment has been complete d for the patient 04/08/2025 8:38 AM EDT documented as of this encounter Care Teams Endo Tech Relationship Specialty Start Date End Date Tylor Marmolejo MD PCP - General Family Medicine 09/06/24 documented as of this encounter
--- OUTSIDE RECORDS SUMMARY | 2025-06-29 10:57 | XMS_ITS | Encounter Summary ---
Author Organization [facility] Address [address] [place] [address] Care Team Providers Care Hog Cooler Name Role Phone Unavailable Primary Care Provider Unavailabl e Source Comments Please be aware that You and/or your organization are solely responsible for the use, security, privacy, and any decisions made with any information you receive from [employer] Reason for Visit * Imaging (Routine) - Closed Specialty Diagnoses / Procedures Referred By Contac t Referred To Contact Procedures BI Mammo Screen Venus Outside Images Radiology, Films Referral ID Status Reason Start Date Expiration Date Visits Re quested Visits Authorized [id number] Closed 01/03/2025 01/03/2026 1 1 Encounter Details Date Type Department Care Team (Late Contact Info) Description 1945 Ancillary Procedure [facility] RADIOLOGY EXTERNAL FILMS [phone] Social History Tobacco Use Types Packs/Day Years Used Date Smoking Tobacco: Never Assessed Comments Unknown Sex and Gender Information Value Date Recorded Sex Assigned at Not on file Legal Sex Female 2:23 PM EDT Gender Identity Not on file Sexual Orientation Not on file documented as of this encounter Plan of Treatment Upcoming Encounters Date Type Department Care Team (Late Contact Info) Description 10/11/2025 1:00 PM EDT Office Visit [facility] Primary Care at [facility] [address] [facility] [address] [place] [address] Tylor Marmolejo MD [address] [facility] [address] [place] [address] documented as of this encounter Procedures Procedure Name Priority Date/Time Associated Diagnosis Comments BI MAMMO SCREEN VENUS OUTSIDE IMAGES Routine 1945 12:00 AM EST documented in this encounter Results * BI Mammo Screen Venus Outside Images (1945 12:00 AM EST) Narrative IMAGING - 01/03/2025 10:07 AM EDT Impression: This order has been auto-finalized and does not contain a result. us Films Radiology IMG BI PROCEDURES Final Result IMAGING documented in this encounter Visit Diagnoses Not on filedocumented in this encounter
--- OUTSIDE RECORDS SUMMARY | 2025-06-29 10:57 | XMS_ITS | Clinical Summary ---
Author Organization [facility] Address [address] [place] [id number] Care Team Providers Care Vice President Of Finance Name Role Phone Elsewhere, Pcp Primary Care Provider Unavailabl e Source Comments Patient records contain information from all sites at [facility]. For routine questions regarding patient records, call [phone] during business hours, M-F 8:00 AM - 5:00 PM Central Time. Record requests for emergency care only can be directed to [phone] at any time.[facility] Allergies Active Allergy Reactions Criticality Noted Date Comments Antihistamines - Alkylamine Other (see comments) 02/20/2025 Due to glaucoma. Sulfa (Sulfonamide Antibiotics) GI bleeding 08/25/2024 Medications * This document contains information received from the source organization and may not represent a complete record from that organization. Synthroid 88 mcg tablet Take 1 tablet by mouth daily before morning meal. Active rifAXIMin (Xifaxan) 550 mg tabletIndicatio ns:Pain Generalized Abdominal,Gastr o-Esophageal Reflux Disease With Esophagitis Without Bleeding Take 1 tablet (550 mg total) by mouth 2 (two) times a day. 28 tablet 02/24/20 25 Active esomeprazole (NexIUM) [address] capsule Take 1 capsule (20 mg total) by mouth 2 (two) times a day before morning and evening meals. 60 capsule 3 05/24/20 25 Active atorvastatin (Lipitor) 40 mg tablet Take 1 tablet by mouth every evening. 11/02/19 21 025 Discontinued(Di scontinued by another clinician) estradioL (Estrace) 0.1 mg/g (0.01%) vaginal cream Insert 1 g into the vagina every other day. At bedtime 02/10/20 Discontinued(Di scontinued by another clinician) hydrOXYzine (Atarax) 10 mg tablet Take 1 tablet by mouth daily as needed for anxiety. 09/11/19 Discontinued(Di scontinued by another clinician) melatonin 3 mg tablet Take 1 tablet (3 mg total) by mouth at bedtime as needed for sleep. 10/15/19 Discontinued(Di scontinued by another clinician) famotidine (Pepcid) 20 mg tablet Take 20 mg by mouth daily. Discontinued(Di scontinued by another clinician) cefpodoxime (Vantin) 200 mg tablet See Admin Instructions . See attached for detailed directions. 02/10/20 Discontinued(Di scontinued by another clinician) cephalexin (Keflex) 500 mg capsule TAKE ONE CAPSULE BY MOUTH EVERY EIGHT HOURS FOR TEN DAYS Discontinued clotrimazole-be tamethasone (Lotrisone) 1-0.05 % cream APPLY TO AFFECTED AREA TWICE A DAY FOR 28 DAYS Discontinued(Di scontinued by another clinician) dicyclomine (BentyL) 10 mg capsule TAKE 1 CAPSULE BY MOUTH 4 TIMES EVERY DAY NEEDED Discontinued(Di scontinued by another clinician) pantoprazole (Protonix) 40 mg EC tablet Take 1 tablet (40 mg total) by mouth daily before morning meal. 90 tablet 3 04/04/20 Discontinued(Di scontinued by another clinician) rifAXIMin (Xifaxan) 550 mg tabletIndicatio ns:Overgrowth Bacterial Small Bowel Take 1 tablet (550 mg total) by mouth 2 (two) times a day for 14 days. 28 tablet 05/30/20 neomycin (Mycifradin) 500 mg tabletIndicatio ns:Overgrowth Bacterial Small Bowel Take 1 tablet (500 mg total) by mouth 2 (two) times a day for 14 days. 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 06/28/2025 10:43 AM EST - 06/28/2025 11:59 PM EST Hospital Encounter Department of Radiology, [facility], in [place], [place] [address] [place] [phone] Duke Fan M.D. Impairment Cognitive Mild Discharge Disposition: Home or Self Care 06/08/2025 1:00 PM EST Clinical Support Department of Allergy Medicine in [address] [phone] Qamar Spangler M.D. Hronek, Amanda P, R.N. Allergy Penicillin Antibiotic Personal History; Adverse Effect Of Penicillins Initial 06/08/2025 12:00 PM EST Clinical Support Department of Allergy Medicine in [place] [id number] [place] [phone] Qamar Spangler M.D. Hronek, Amanda P, R.N. 06/08/2025 9:00 AM EST Office Visit Department of Allergy Medicine in [place] [address] [place] [phone] Carrie Thomas APRN Adverse Effect Of Penicillins Initial (Primary Dx); Hives 06/07/2025 Clinical Communication Department of Neurology in [address] [place] [phone] Duke Fan M.D. 06/03/2025 Orders Only Department of Neurology in [address] [phone] Duke Fan M.D. Impairment Cognitive Mild (Primary Dx) 06/03/2025 Clinical Communication Department of Neurology in [address] [phone] Duke Fan M.D. 05/31/2025 2:00 PM EST Office Visit Division of Gastroenterology and Hepatology in [address] [phone] Danielle Brunson P.A.-C., M.S. Overgrowth Bacterial Small Bowel (Primary Dx) 05/31/2025 11:50 AM EST Lab Department of Laboratory Medicine and Pathology, [facility], in [address] [address] Marcia Overton M.D. Impairment Cognitive Mild 05/31/2025 10:00 AM EST Comprehensive Visit Department of Neurology in [address] [phone] Marcia Overton M.D. Impairment Cognitive Mild (Primary Dx); Reaction Drug Adverse Initial 05/30/2025 Clinical Communication Division of Gastroenterology and Hepatology in [address] [phone] Tylor Urbano M.D. 05/30/2025 Clinical Communication Division of Gastroenterology and Hepatology in [address] [place] [address] Tylor Urbano M.D. 05/30/2025 Clinical Communication Division of Gastroenterology and Hepatology in [address] [phone] Tylor Urbano M.D. 05/26/2025 11:05 AM EST - 05/26/2025 11:59 PM EST Hospital Encounter Division of Gastroenterology and Hepatology, [facility] in [address] [phone] Tylor Urbano M.D. Diarrhea; Gastro-Esophageal Reflux Disease With Esophagitis Without Bleeding Discharge Disposition: Home or Self Care 05/24/2025 11:30 AM EST Office Visit Division of Gastroenterology and Hepatology in [address] [phone] Tylor Urbano M.D. Diarrhea (Primary Dx); Gastro-Esophageal Reflux Disease With Esophagitis Without Bleeding 05/24/2025 Clinical Communication Division of Gastroenterology and Hepatology in [address] [phone] Tylor Urbano M.D. 05/11/2025 3:10 PM EST Telemedicine Department of Allergy Medicine in [address] [phone] Qamar Spangler M.D. Allergy Penicillin Antibiotic Personal History (Primary Dx); Adverse Effect Of Penicillins Initial 05/02/2025 Clinical Communication Division of Gastroenterology and Hepatology in [address] [phone] Tylor Urbano M.D. Referral Request 04/29/2025 7:45 AM EDT Silent Schedule Department of Ophthalmology in [address] [phone] Kiki Hood M.D. 04/29/2025 7:30 AM EDT Comprehensive Visit Department of Ophthalmology in [address] [phone] Shaina Lyon M.D. Kiki Hood M.D. Dermatochalasis Left (Primary Dx); Dermatochalasis Right; Brow Ptosis Bilateral; Ptosis Eyelid Bilateral 04/29/2025 Ancillary Procedure Department of Ophthalmology, [place] 04/04/2025 Refill Division of Gastroenterology and Hepatology in [place], [place] [address] [facility] [place] [address] Tylor Urbano M.D. Med Change Request from Last 3 Months Social History Tobacco Use Types Packs/Day Years Used Date Smoking Tobacco: Never Smokeless Tobacco: Never Tobacco Cessation:Counseling Given: Not Answered Alcohol Use Standard Drinks/Week Comments Not Currently 0 (1 standard drink = 0.6 oz pur e alcohol) Socially 1 drink [facility] Utilities Answer Date Recorded In the past 12 months has th e electric, gas, oil, or water company threatened to shut off services in your [...] your living situation today? I have a [facility] place to live 10/06/2024 Comments No Sex and Gender Information Value Date Recorded Sex Assigned at Female 10/13/2024 6:28 AM CDT Legal Sex Female 1:08 PM [employer] Gender Identity Female 10/13/2024 6:28 AM CDT Sexual Orientation Straight 10/13/2024 6: 28 AM CDT Last Filed Vital Signs Vital Sign Reading Time Taken Comments Blood Pressure 148/82 06/08/2025 11:39 AM EST Pulse 73 06/08/2025 11:39 AM EST Temperature 36.4 C (97.5 F) 05/31/2025 2:01 PM EST Respiratory Rate 14 05/26/2025 1:44 PM EST Oxygen Saturation 100% 06/08/2025 11: 39 AM EST Inhaled Oxygen Concentration - - Weight 62.5 kg (137 lb 12.6 oz) 05/31/2025 2:01 PM EST Height 165.1 cm (5' 5 ) 05/31/2025 2:01 PM EST Body Mass Index 22.93 05/31/2025 2:01 PM EST Plan of Treatment Upcoming Encounters Date Type Department Care Team (Latest Contact Info) Description 07/21/2025 9:40 AM EST Virtual Visit Preoperative Clinic in [place] [address] [place] [phone] Kiki Hood M.D. [facility] [place] [phone] 08/03/2025 12:00 PM EST Appointment Department of Laboratory Medicine and Pathology, [facility] in [place] [address] [place] [address] Kiki Hood M.D. [address] [place], [place] [address] [place] [address] 08/03/2025 1:00 PM EST Ancillary Procedure Department of Ophthalmology in [place] [address] [place] [address] Kiki Hood M.D. [facility] [place] [address] 08/03/2025 2:00 PM EST Ancillary Procedure Department of Cardiovascular Diseases in [place] [address] [place] [phone] Kiki Hood M.D. [facility] [place] [address] 08/03/2025 3:20 PM EST Comprehensive Visit Preoperative Clinic in [place], [place] [address] [place] [phone] Kiki Hood M.D. [address] [place] [address] 08/15/2025 8:15 AM EST Hospital Encounter [facility] [place] [address] Kiki Hood M.D. [facility] [place] [address] 08/15/2025 8:15 AM EST - 08/15/2025 10:45 AM EST Surgery [facility] OR [address] [place] [address] Kiki Hood M.D. [facility] [place] [address] BILATERAL EXTERNAL PTOSIS REPAIR 08/30/2025 3:15 PM EST Office Visit Department of Ophthalmology in [place], [place] [address] [place] [address] Kiki Hood M.D. [facility] [place] [address] Scheduled Procedures Name Priority Associated Diagnoses Date/Ti me REPAIR PTOSIS Ptosis Eyelid Bilateral 08/15/2025 8:15 AM EST Health Maintenance Due Date Last Done Comments Hepatitis C Screening 1945 DTaP,Tdap,and Td Vaccines (1 - Tdap) 1964 Pneumococcal vaccine (50+ years) (1 of 1 - PCV) 1995 Zoster Vaccines (1 of 2) 1995 RSV vaccine - (32-36 weeks) or 50+ years (1 - 1-dose 75+ series) 2020 Depression Screening (Annual PHQ-2) 07/07/2024 COVID-19 Vaccine ( season) 2025 05/14/2021, 09/04/2020, 08/17/2020, Additional history exists Influenza Vaccine (#1) 2025 Thyroid Stimulating Hormone (TSH) test for thyroid function 01/18/2026 01/18/2025, 12/08/2024, 10/13/2024 Fall Risk Screen (Annual) Completed 06/28/2025 IPV Vaccines Aged Out No longer eligi ble based on patient's age to complete this topic Goals Goal Patient Goal Type Associated Problems Recent Progress Patient-Stated? Author Autogenera mora Goal Care Plan Autogenerated Problem No [employer] Devices Implanted Type Area Dump Motorman Device Identifier Shelf Expiration Date Model / Serial / Lot Hardware E.G. Pins/Screws/R ods Hardware e.g. pins/screws/ rods Right: First Toe Procedures Procedure Name Priority Date/Time Associated Diagnosis Comments PET MR BRAIN FOCUSED WITHOUT IV CONTRAST RAD - Routine (most inpatients and all outpatients) 06/28/2025 12:49 PM EST Impairment Cognitive Mild PET MR BRAIN FOCUSED AMYLOID RAD - Routine (most inpatients and all outpatients) 06/28/2025 12:49 PM EST Impairment Cognitive Mild APOLIPOPROTEIN E GENOTYPING, B Routine 05/31/2025 12:09 PM EST Impairment Cognitive Mild CREATININE WITH EGFR, S/P Routine 05/31/2025 12:09 PM EST Impairment Cognitive Mild PHOSPHO-TAU(217), P Routine 05/31/2025 12:09 PM EST Impairment Cognitive Mild FLEXIBLE SIGMOIDOSCOPY Routine 05/26/2025 1:40 PM EST Diarrhea Gastro-Esophageal Reflux Disease With Esophagitis Without Bleeding EGD (ESOPHAGOGASTRODUODEN OSCOPY) RESTRICTED Routine 05/26/2025 1:40 PM EST Diarrhea Gastro-Esophageal Reflux Disease With Esophagitis Without Bleeding SURGICAL PATHOLOGY Routine 05/26/2025 1: 18 PM EST BACTERIAL CULTURE, AEROBIC + SUSC Routine 05/26/2025 1:15 PM EST BACTERIAL CULTURE, ANAEROBIC + SUSC Routine 05/26/2025 1:15 PM EST AUTOMATED VF - EXTENDED - OU - BOTH EYES Routine 04/29/2025 9:41 AM EDT Ptosis Eyelid Bilateral OPHTHALMOLOGY IMAGE EXAM Routine 04/29/2025 12:00 AM EDT THYROID FUNCTION CASCADE, S Routine 01/18/2025 8:55 AM EDT Diarrhea Bloating Abdominal from Last 3 Months or Most Recently Relevant to Health Maintenance Results * PET MR Brain Focused Amyloid (06/28/2025 [...] in older people with normal cognition. Reference: https://pi.Revcaster.com/us/amyvid-uspi.pdf Narrative 06/29/2025 9:42 AM EST REVISED REPORT: [...] collected for attenuation-correction and anatomic correlation purposes. Theatro software was utilized for additional post-processing and [...] separately with report available under accession # [id number]. Centiloid value: 3.2 Procedure Note Esteban Da [...] was collected forattenuation-correction and anatomic correlation purposes. Theatro software was utilized for additional post-processing andanalysis, [...] interpreted separately with report available under accession #[id number]. Centiloid value: 3.2 IMPRESSION: Abnormal study. There [...] as in older people with normalcognition. Reference: https://pi.Reble/us/amyvid-uspi.pdf [facility] PROCEDURES Edited Resu lt - Final * PET MR Brain Focused without IV Contrast (06/28/2025 12:49 PM EST) Anatomical Region Laterality Modality Brain, Neuroradiology RST LO S, Nuclear Medicine ARZ LOS, Neuroradiology ARZ LOS, Neuroradiology FLA LOS N/A Nuclear Medicine, Magnetic Resonance, Magnetic Resonance [...] Generalized age-relatedcerebral volume loss without lobar predilection. Duke Fan M.D. [facility] MRI PROCEDURES Final Resu lt * (ABNORMAL) Phospho-Tau 217 (05/31/2025 12:09 PM EST) [id number], P 0.554(H) pg/mL 06/01/2025 2:16 PM EST [facility] Comment: ----REFERENCE VALUE---- Negative: < or = 0.185 pg/mL Intermediate: 0.186 - 0.324 pg/mL Positive: > or = 0.325 pg/mL [id number] Interpretation SEE COMMENT 06/01/2025 2:16 PM EST [facility] Comment: An elevated (positive) [id number] result is consistent with a positive (abnormal) amyloid positron emission tomography (PET) scan result. This result is consistent with the presence of neuropathological changes associated with Alzheimer's disease. In the proper clinical context, this test is supportive of Alzheimer's disease being related to current clinical symptoms. This test has not been demonstrated to provide information on the risk of an asymptomatic individual developing symptoms related to Alzheimer's disease in the future. Clinical performance of this test was established in a study of 427 individuals, 50 years and older, with mild cognitive impairment or early dementia. The prevalence of amyloid pathology was 64% as defined by amyloid-PET and a Centiloid of > or = 25. For detection of an abnormal amyloid- PET, the test sensitivity at the lower cutpoint (< or = 0.185 pg/mL) was 92% and the specificity at the upper cutpoint (> or = 0.325 pg/mL) was 96%. The diagnostic performance of this test has not been established in asymptomatic individuals. Elevations of [id number] may be seen in individuals with impaired kidney function associated with chronic kidney disease and should be interpreted with caution in these situations. ----ADDITIONAL INFORMATION---- This test has been modified from the mission coordinator's instructions. Its performance characteristics were determined by [facility] in a manner consistent with CLIA requirements. This test has not been cleared or approved by the U.S. Food and Drug Administration. The testing method is a chemiluminescent enzyme immunoassay manufactured by [employer] and performed on the SourceTour analyzer. Values obtained with different assay methods or kits may be different and cannot be used interchangeably. This test is not intended as a screening or standalone diagnostic assay; correlation with clinical findings is recommended. Blood (Blood, Venous) 05/31/2025 12:09 PM EST 06/01/2025 1:25 PM EST us Marcia Overton M.D. LAB BLOOD NON ADD-ON Final Re sult [facility] [address] [place] [address] [facility] [address] 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 06/05/2025 2:40 PM EST DTL Reason for Referral Test for the presence of the e2, e3, and e4 alleles in the APOE gene. 06/05/2025 2:40 PM EST DTL Specimen WB Whole Blood 06/05/2025 2:40 PM EST DTL Released By Milagros Monroe M.D. 06/05/2025 2:40 PM EST DTL Interpretation The e3/e3 genotype is not associated with an increased risk of cardiovascular disease. The APOE gene is also a known susceptibility gene for Alzheimer disease (AD). The e4 allele is associated with an increased risk for AD, particularly late-onset disease, in a dose dependent manner (1-3). The e3 alleles detected in this patient are not associated with an increased risk for AD. Less common APOE variants that do not alter a restriction site for [employer] will not be detected by this assay. REFERENCES 1. ARMIDA 1997; 278:5048-6111 (PMID 3748784) 2. Mar[employer] Med 2011; 13:597-605 (PMID 36049036) 3. [employer] 2014January 13. Retrieved from www.choosingwise ly.org/societies /indonesian-colleg n-if-tfcrhpw -kvupbpps-ffp-lv nomics/) A portion of the testing process was performed at [facility] site [id number]. 06/05/2025 2:40 PM EST DTL Comment: ----ADDITIONAL INFORMATION---- A PCR-based assay, including Body Builder Apprentice I digestion of the amplified product, was utilized to identify the three common APOE alleles (epsilon2, epsilon3, and epsilon4). An online research opportunity called [employer]Link ([employer]), a project of [employer], is available for the recipient of this genetic test. This patient registry collects de-identified genetic and health information to advance the knowledge of genetic variants. [facility] is a collaborator of [employer]. This may not be applicable for all tests. Test results should be interpreted in the context of clinical findings, family history, and other laboratory data. Misinterpretation of results may occur if the information provided is inaccurate or incomplete. Rare polymorphisms exist that could lead to false-negative or false-positive results. If results obtained do not match the clinical findings, additional testing should be considered. Bone Marrow transplants from allogenic donors will interfere with testing. Call [facility] for instructions for testing patients who have received a bone marrow transplant. One or more in silico tools were used to assist in the interpretation of these results. These tools are updated regularly and predictions for a given variant may change. Additionally, the predictability of these tools for the determination of pathogenicity is currently unvalidated. This test was developed and its performance characteristics determined by [facility] in a manner consistent with CLIA requirements. This test has not been cleared or approved by the U.S. Food and Drug Administration. Blood (Blood, Venous) 05/31/2025 12:09 PM EST 06/01/2025 1:22 PM EST Marcia Overton M.D. LAB GENETIC TESTING Final Res ult [facility] [address] [place] [address], [facility] [address] [facility] [address] [place] [address] * Creatinine with Estimated GFR (05/31/2025 12:09 PM EST) Creatinine 0.87 0.59 - 1.04 mg/dL 05/31/2025 12:59 PM EST [facility] Estimated GFR (eGFR) 68 >=60 mL/min/BSA 05/31/2025 12:59 PM EST [facility] Comment: Estimated GFR calculated using the 2020 CKD_EPI creatinine equation. Blood (Blood, Venous) 05/31/2025 12:09 PM EST 05/31/2025 12:28 PM EST us Marcia Overton M.D. LAB BLOOD ADD-ON Final Result [facility] [place] [address], [facility] Clinical Lab [address] [place] [address] * EGD (EsophagoGastroDuodenoscopy) Restricted (05/26/2025 1:40 PM EST) Anatomical Region Laterality Modality Endoscopy Narrative 05/26/2025 1:30 PM EST Table formatting from the original result was not included. Procedure: EGD (EsophagoGastroDuodenoscopy) Restricted Referring Provider: Tylor Urbano M.D. Pre-op Diagnoses: Diarrhea Gastro-Esophageal Reflux Disease With Esophagitis Without Bleeding Post-Procedure Diagnoses: Barretts Esophagus Without Dysplasia Esophagitis Eosinophilic Recommendation: Follow up with referring provider Await specimen results Impression: Performed forceps biopsies in the upper third of the esophagus, middle third of the esophagus and lower third of the esophagus to rule out eosinophilic esophagitis. C1M2 Springer's esophagus; performed cold forceps biopsy. The cardia, fundus of the stomach, body of the stomach and antrum appeared normal. The duodenal bulb, 1st part of the duodenum and 2nd part of the duodenum appeared normal. Findings: Performed multiple forceps biopsies in the upper third of the esophagus, middle third of the esophagus and lower third of the esophagus using standard forceps to rule out eosinophilic esophagitis. C1M2 Springer's esophagus observed; performed cold forceps biopsy. The cardia, fundus of the stomach, body of the stomach and antrum appeared normal. The duodenal bulb, 1st part of the duodenum and 2nd part of the duodenum appeared normal. Aspirate obtained to rule out SIBO. Procedure Details: The patient was seen, evaluated, history reviewed, airway and heart-lung exams were performed by licensed provider and were satisfactory for planned level of sedation care. The risks, benefits and alternatives for the procedure and sedation were discussed and informed consent was obtained. A procedural pause was conducted in the presence of assisting personnel to verify the correct patient identity and procedure to be performed. The patient underwent moderate sedation, which was administered by the procedural nurse under the supervision of the performing physician. The patient's blood pressure, heart rate, level of consciousness, oxygen saturation and respirations were monitored throughout the procedure. The scope was introduced into the mouth through a bite block and advanced to the second part of the duodenum. Insufflated with carbon dioxide. Retroflexion was performed in the cardia and fundus. The patient experienced no blood loss. The procedure was not difficult. The patient tolerated the procedure well. There were no apparent adverse events. Specimens: ID Type Source Tests Collected by Time 1 : Aspirate Duodenum BACTERIAL CULTURE, ANAEROBIC + SUSC, BACTERIAL CULTURE, AEROBIC + SUSC Tylor Urbano M.D. 05/26/2025 1315 A : Biopsy Esophagus SURGICAL PATHOLOGY Tylor Urbano M.D. 05/26/2025 1318 B : Biopsy Esophagus SURGICAL PATHOLOGY Tylor Urbano M.D. 05/26/2025 1321 Medications: midazolam (PF) injection (Versed) 4 mg fentaNYL injection (Sublimaze) 100 mcg diphenhydrAMINE injection (BenadryL) 25 mg (Totals for administrations occurring from 1237 to 1324 on 05/26/25) Staff Role Lucy Dejesus R.N. Endoscopy Nurse Rey Deshpande Maintenance Chief Tylor Urbano M.D. Proceduralist Attending Participation: I performed the entire procedure. Tylor Urbano M.D. GI PROCEDURE ORDERABLES Final Result * Flexible Sigmoidoscopy (05/26/2025 1:40 PM EST) Anatomical Region Laterality Modality Endoscopy Narrative 05/26/2025 1:37 PM EST Table formatting from the original result was not included. Procedure: Flexible Sigmoidoscopy Referring Provider: Tylor Urbano M.D. Pre-op Diagnoses: Diarrhea Gastro-Esophageal Reflux Disease With Esophagitis Without Bleeding Post-Procedure Diagnoses: Hemorrhoids Recommendation: Follow up with referring provider Await specimen results Impression: The distal sigmoid colon appeared normal. Performed forceps biopsies in the mid sigmoid colon and proximal rectum to rule out microscopic colitis. Hemorrhoids. Findings: The distal sigmoid colon appeared normal. Performed forceps biopsies in the mid sigmoid colon and proximal rectum to rule out microscopic colitis. Hemorrhoids observed during retroflexion. Procedure Details: The patient was seen, evaluated, history reviewed, airway and heart-lung exams were performed by licensed provider and were satisfactory for planned level of sedation care. The risks, benefits and alternatives for the procedure and sedation were discussed and informed consent was obtained. A procedural pause was conducted in the presence of assisting personnel to verify the correct patient identity and procedure to be performed. The patient underwent moderate sedation, which was administered by the procedural nurse under the supervision of the performing physician. The patient's blood pressure, heart rate, level of consciousness, oxygen saturation and respirations were monitored throughout the procedure. A digital rectal exam was performed. A perianal exam was performed. The scope was introduced through the anus and advanced to the sigmoid colon. Insufflated with carbon dioxide. Retroflexion was performed in the rectum. The quality of bowel preparation was evaluated using the Osburn Bowel Preparation Scale with scores of: right colon = not assessed, transverse colon = not assessed, left colon = 2. The total BBPS score was 2. Bowel prep was adequate. The patient experienced no blood loss. The procedure was not difficult. The patient tolerated the procedure well. There were no apparent adverse events. Specimens: ID Type Source Tests Collected by Time 1 : Aspirate Duodenum BACTERIAL CULTURE, ANAEROBIC + SUSC, BACTERIAL CULTURE, AEROBIC + SUSC Tylor Urbano M.D. 05/26/2025 1315 A : Biopsy Esophagus SURGICAL PATHOLOGY Tylor Urbano M.D. 05/26/2025 1318 B : Biopsy Esophagus SURGICAL PATHOLOGY Tylor Urbano M.D. 05/26/2025 1321 C : Biopsy Colon SURGICAL PATHOLOGY Tylor Urbano M.D. 05/26/2025 1333 Medications: Lactated Ringer's 500 mL Not documented* *Total volume has not been documented. View each administration to see the amount administered. midazolam (PF) injection (Versed) 4 mg fentaNYL injection (Sublimaze) 100 mcg diphenhydrAMINE injection (BenadryL) 25 mg (Totals for administrations occurring from 1237 to 1334 on 05/26/25) Staff Role Lucy Dejesus R.N. Endoscopy Nurse Rey Deshpande Maintenance Chief Tylor Urbano M.D. Proceduralist Attending Participation: I performed the entire procedure. Tylor Urbano M.D. GI PROCEDURE ORDERABLES Final Result * Surgical Pathology (05/26/2025 1:18 PM EST) 05/27/2025 2:12 PM EST JXH Participated in the Interpretation Wesley Slaughter D.O. 05/27/2025 2:12 PM EST JX Report electronically signed by Everton Bass M.D. I verify that I have examined all relevant slides/materials for the specimen(s) and rendered or confirmed the diagnosis. 05/27/2025 2:12 PM EST JXH Gross Description A: Received in formalin labeled esophagus, lower third are two irregular fragments of murry/pink soft tissue measuring up to 0.3 cm ingreatest dimension. The specimen is submitted entirely in A1. SLS B: Received in formalin labeled esophagus, middle third and upper third are multiple irregular fragments of murry/pink soft tissuemeasuring up to 0.4 cm in greatest dimension. The specimen is submitted entirely in B1. SLS C: Received in formalin labeled left colon are four irregular fragments of murry/pink soft tissue measuring up to 0.3 cm in greatestdimension. The specimen is submitted entirely in C1. [facility] 05/27/2025 2:12 PM EST JX Specimen Source A) Esophagus, lower third B) Esophagus, middle third and upper third C) Left colon 05/27/2025 2:12 PM EST JXH Clinical Information A-B) Esophagitis, rule out Springer's C) Rule out microscopic colitis 05/27/2025 2:12 PM EST JXH Interpretation FINAL DIAGNOSIS: A) Esophagus, lower third, biopsy: Squamocolumnar junctional mucosa with mild chronic inflammation. Negative for intestinal metaplasia and dysplasia. B) Esophagus, middle and upper third, biopsy: Squamous mucosa with no diagnostic abnormality. C) Colon, left, biopsy: Benign colonic mucosa with focal lymphoid aggregate. JPR/SLO/slo Digital imaging was used in the diagnostic assessment of this case. 05/27/2025 2:12 PM EST JX Biopsy (Esophagus) 05/26/2025 1:18 PM EST Comment:esophagitis Biopsy (Esophagus) 05/26/2025 1:21 PM EST Comment:esophagitis Biopsy (Colon) 05/26/2025 1: 33 PM EST us Tylor Urbano M.D. LAB SURG PATH ORDERABLES Final Result Performing Organization Address [facility] de Phone Number [facility] [address] [place] [address], [facility] [address] [address] * Bacterial Culture, Aerobic + Susceptibility (05/26/2025 1:15 PM EST) Bacterial Culture, Aerobic + Susc >100,000 Mixed anaerobic Gram positive and Gram negative bruce. 05/29/2025 10:32 AM EST JXC Aspirate (Duodenum) 05/26/2025 1:15 PM EST us Tylor Urbano M.D. LAB MICROBIOLOGY - GENER AL ORDERABLES Final Result Performing Organization Address [facility] de Phone Number [facility] [address] [place] [address], [facility] [address] [place] [address] * Bacterial Culture, Anaerobic + Susceptibility (05/26/2025 1:15 PM EST) Bacterial Culture, Anaerobic No anaerobic bacteria isolated after 7 days of incubation. 06/03/2025 4:39 PM EST JXC Aspirate (Duodenum) 05/26/2025 1:15 PM EST us Tylor Urbano M.D. LAB MICROBIOLOGY - GENER AL ORDERABLES Final Result Performing Organization Address [facility] de Phone Number [facility] [address] [place] [address], [facility] [address] [place] [address] * Automated VF - Extended - OU - Both Eyes (04/29/2025 9:41 AM EDT) Narrative Shebaclo, Kiki, M.D. - 05/01/2025 10:39 PM EDT Right Eye Reliability was good. Threshold was Superior 64. Eyelid was other. Findings include superior. Left Eye Reliability was good. Threshold was Superior 64. Eyelid was other. Findings include superior. Notes Procedure: Visual Field Testing - Ptosis Evaluation Date of VF Test: 05/01/2025 Type of Test: Velazquez Ptosis Field Clinical Indication: Patient presents with visual obstruction due to upper eyelid ptosis and/or dermatochalasis. Visual field testing was ordered to assess the degree of superior field loss and the functional impact of eyelid position. Findings: - Un-taped visual field: Superior field constriction noted with limited vertical field. - Taped visual field: Significant improvement in superior field after elevating upper eyelids with tape. - Improvement of >=12 degrees vertically AND >=30% of the superior visual field compared to un-taped condition. Interpretation: The taped vs. un-taped visual field results demonstrate a marked improvement in superior vision with elevation of the upper eyelids. This confirms that the ptosis/dermatochalasis is causing a functional visual deficit. The degree of improvement meets commonly accepted criteria for functional upper blepharoplasty. Procedure: Visual Field Testing - Ptosis Evaluation Date of VF Test: 05/01/2025 Type of Test: Velazquez Ptosis Field Clinical Indication: Patient presents with visual obstruction due to upper eyelid ptosis and/or dermatochalasis. Visual field testing was ordered to assess the degree of superior field loss and the functional impact of eyelid position. Findings: - Un-taped visual field: Superior field constriction noted with limited vertical field. - Taped visual field: Significant improvement in superior field after elevating upper eyelids with tape. - Improvement of >=12 degrees vertically AND >=30% of the superior visual field compared to un-taped condition. Interpretation: The taped vs. un-taped visual field results demonstrate a marked improvement in superior vision with elevation of the upper eyelids. This confirms that the ptosis/dermatochalasis is causing a functional visual deficit. The degree of improvement meets commonly accepted criteria for functional upper blepharoplasty. us Kiki Hood M.D. OPH VISUAL FIELD Final Re sult * Eyes-Ophthalmology Image Exam (04/29/2025 12:00 AM EDT) Narrative IIMS - 04/29/2025 7:56 AM EDT This order has been created and auto-finalized to support the import of images acquired without order. The clinical documentation to support these images can be found on the encounter that produced images. us Provider Not In System IMG NON RAD IMAGING PROCE DURES Final Result Performing Organization Address City/[facility]/ZIP Co de Phone Number [facility] NA * Thyroid Function Lamar (01/18/2025 8:55 AM EDT) TSH, Sensitive 1.0 0.3 - 4.2 mIU/L 01/18/2025 10:25 AM EDT JXC Blood (Blood, Venous) 01/18/2025 8:55 AM EDT 01/18/2025 9:37 AM EDT Tylor Urbano M.D. LAB BLOOD ADD-ON Final R esult Performing Organization Address City/[facility]/ZIP Co de Phone Number [facility] [address] [place] [address], [facility] [address] [place] [address] from Last 3 Months or Most Recently Relevant to Health Maintenance Additional Health Concerns Active Problems Noted Date Diagnosed Date Autogenerated Problem 05/16/2025 Insurance MEDICARE [employer] Advance Directives For more information, please contact: [phone] * Full Code (Latest Code Status on File) Date Activated Date Inactivated Comments 10/13/2024 4:30 PM 10/14/2024 4:59 PM Question Answer Comments Full Code: Discussed Care Teams Vice President Of Finance Relationship Specialty Start Date End Date Elsewhere, Pcp PCP - General Internal Medicine 08/25/24
--- OUTSIDE RECORDS SUMMARY | 2025-06-29 10:57 | XMS_ITS | Encounter Summary ---
Author Organization [facility] Address [address] [place] [address] Care Team Providers Care Diesel Engine Tester Name Role Phone Elsewhere, Pcp Primary Care Provider Unavailabl e Encounter Details Date Type Department Care Team (Late st Contact Info) Description 06/07/2025 Clinical Communication Department of Neurology in [place], [place] [address] [place] [address] Duke Fan M.D. [address] [place] [address] Social History Tobacco Use Types Packs/Day Years Used Date Smoking Tobacco: Never Smokeless Tobacco: Never Alcohol Use Standard Drinks/Week Comments Not Currently 0 (1 standard drink = 0.6 oz pur e alcohol) Socially 1 drink [facility] Utilities Answer Date Recorded In the past 12 months has e [employer], gas, oil, or water [employer] threatened to shut off services in your [...] your living situation today? I have a [facility] place to live 10/06/2024 Comments No Sex and Gender Information Value Date Recorded Sex Assigned at Female 10/13/2024 6:28 AM CDT Legal Sex Female 1:08 PM [employer] Gender Identity Female 10/13/2024 6:28 AM CDT Sexual Orientation Straight 10/13/2024 6: 28 AM CDT documented as of this encounter Plan of Treatment Upcoming Encounters Date Type Department Care Team (Latest Contact Info) Description 07/21/2025 9:40 AM EST Virtual Visit Preoperative Clinic in [place] [address] [place] [phone] Kiki Hood M.D. [facility] [place] [phone] 08/03/2025 12:00 PM EST Appointment Department of Laboratory Medicine and Pathology, [facility] in [place] [address] [place] [phone] Kiki Hood M.D. [address] [place], [place] [address] [place] [address] 08/03/2025 1:00 PM EST Ancillary Procedure Department of Ophthalmology in [place] [address] [place] [phone] Kiki Hood M.D. [facility] [place] [address] 08/03/2025 2:00 PM EST Ancillary Procedure Department of Cardiovascular Diseases in [place] [address] [place] [address] Kiki Hood M.D. [address] [place], [place] [address] [place] [address] 08/03/2025 3:20 PM EST Comprehensive Visit Preoperative Clinic in [place], [place] [address] [place] [address] Kiki Hood M.D. [address] [place] [address] 08/15/2025 8:15 AM EST Hospital Encounter [place] [address] MAIN OR [address] [place] [address] Kiki Hood M.D. [facility] [place] [address] 08/15/2025 8:15 AM EST - 08/15/2025 10:45 AM EST Surgery [place] [address] MAIN OR [facility] [place] [phone] Kiki Hood M.D. [facility] [place] [address] BILATERAL EXTERNAL PTOSIS REPAIR 08/30/2025 3:15 PM EST Office Visit Department of Ophthalmology in [place] [address] [place] [address] Kiki Hood M.D. [facility] [place] [address] Scheduled Procedures Name Priority Associated Diagnoses Date/Ti [...] documented as of this encounter Care Teams Diesel Engine Tester Relationship Specialty Start Date End Date Elsewhere, Pcp PCP - General Internal Medicine 08/25/24 documented as of this encounter
--- OUTSIDE RECORDS SUMMARY | 2025-06-29 10:58 | XMS_ITS | Patient Health Record ---
Author Organization [facility] Address [address] [facility] [address] [place] [address] Care Team Providers Care Certified Pharmacist Assistant Name Role Phone RICHY ROBINS Primary Care Provider Magali Burdick Unavailable [phone] Allergies Allergen (clinical drug ingredient) Drug/Non Drug Allergy documented on EMR Reaction Allergy Type Onset Date Status sulfur (uncoded) Unknown Allergy Act anthony ciprofloxacin Cipro Unknown Drug Allergy Act anthony Penicillium chrysogenum rebecca. chrysogenum allergenic extract Penicillium Notatum Unknown Drug Allergy Ac tive Reason For Referral No Information Medications Medication SIG (Take, Route, Frequency, Duration) Notes Start Date End Date Status [place] Thyroid 60 MG Tablet 1 tablet on an empty stomach Orally Once a day PRN Not-Taking Estrace 0.1 MG/GM Cream _insert 1 gram Vaginal 3X PER WEEK QHS; Duration: 30 days Active Synthroid Active Vitamin B 12 100 MCG Lozenge Orally Not-Taking Estrace 0.1 MG/GM Cream _insert 1 gram Vaginal 3X PER WEEK QHS; Duration: 30 days 02/09/2021 Active CoQ-10 100 MG Capsule Extended Release 1 capsule with a meal Orally Once a day Not-Taking Omeprazole 20 MG Capsule Delayed Release 1 capsule Orally Once a day PRN Active DHEA 25 MG Tablet Orally No t-Taking Atorvastatin Calcium 40 MG Tablet 1 tablet Orally Once a day PRN Active Gelatin 600 MG Capsule Orally Not-Taking raNITIdine HCl 150 MG Capsule 1 capsule at bedtime Orally Once a day PRN Not-Taking Estradiol 0.1 MG/GM Cream as directed Vaginal THREE TIMES A WEEK; Duration: 1 tube PER PATIENT PLEASE PUT ON HOLD FOR HER. 02/10/2020 Not-Taking Vitamin D 2000 UNIT Capsule 1 capsule Orally Once a day Not-Taking Jose Manuel Mag Zinc +D3 - Tablet Orally Not-Taking Clobetasol Propionate 0.05 % Cream 1 application to affected area Externally Twice a day; Duration: 30 days Active Estradiol 0.1 MG/GM Cream as directed Vaginal THREE TIMES A WEEK; Duration: 1 tube Active Estrogens Conjugated 2.5 MG Tablet as directed Orally estrogen cream Not-Taking Social History Tobacco Use: Social History Observation Description Date Details (start date - stop date) Never Smoker NA - NA Social History Sexual History: Social Info Question Answer Notes Details of Sexual History Are you sexually active? No Sexual Abuse History: none Sexual History Last menstrual period 55 YEARS OLD Drugs/Alcohol: Social Info Question Answer Notes Alcohol Screen (Audit-C) Did you have a drink containing alcohol in the past year? Yes Points 0 Interpretation Negative Drugs Have you used drugs other than those for medical reasons in the past 12 months? No Caffeine Intake: 1-2 cups per day Tobacco Use: Social Info Question Answer Notes Tobacco Use/Smoking Are you a nonsmoker? Yes Additional Details Category Social Info Options Details Miscellaneous: Exercise: heavy Marital status: Occupational exposure: none Current/ Former Occupation: [employer] Number of Children: 3 Caffeine: 1-2 cups per day Living with: spouse Blood Transfusion acceptable in an emergency: No Advance Directive: No Rastafari Preference: BAHAI Diet: Regular Problems Problem Type SNOMED Code ICD Code Onset Dates Problem Status W/U Status Risk Notes Problem Cystocele (550475404) Cystocele, unspecified (N81.10) Active confirmed Problem Dysuria (46577004) Dysuria (R30.0) Active confirmed Problem Screening for malignant neoplasm of breast (317059191) Encounter for screening mammogram for malignant neoplasm of breast (Z12.31) Active confirmed Problem Screening for malignant neoplasm of vagina (011555073) Encounter for screening for malignant neoplasm of vagina (Z12.72) Active confirmed Problem Routine gynecologic examination (019712549) Encounter for well woman exam with routine gynecological exam (Z01.419) Active confirmed Problem Screening for malignant neoplasm of colon (905311011) Encounter for screening fecal occult blood testing (Z12.11) Active confirmed Problem 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) Active confirmed Problem Midline cystocele (077540607) Midline cystocele (N81.11) Active confirmed Problem Vaginal discharge (039006456) Vaginal discharge (N89.8) Active confirmed Problem Prolapse of urethra (83968958) 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) Active confirmed Problem Burning sensation of vagina (finding) (646112577) Vaginal burning (N94.9) Active confirmed Plan Of Treatment Pending Test Test Name Order Date Mammogram Screening 01/05/2019 Mammogram Screening 02/09/2020 Mammogram Screening 02/09/2021 Insurance Providers Payer Name Payer Address Payer Phone Subscriber Number Group Number Insured Name Patient Relationship to Insured Coverage Start Date Coverage End Date [employer] [address] [address] [place] [address] [id number] Kathleen Wyatt Self - patient is the insured 9 Medical (General) History Medical History History ICD Code HIGH CHOLESTEROL 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
--- OUTSIDE RECORDS SUMMARY | 2025-06-29 10:58 | XMS_ITS | Encounter Summary ---
Author Organization [facility] Address [address] [place] [address] Care Team Providers Care Roof Tile Layer Name Role Phone Tylor Marmolejo MD Primary Care Provider + Source Comments Please be aware that You and/or your organization are solely responsible for the use, security, privacy, and any decisions made with any information you receive from [email or web address] Reason for Visit * Reason Comments Med Refill Encounter Details Date Type Department Care Team (Late st Contact Info) Description 06/29/2025 Refill [facility] Primary Care at [facility] [address] [facility] [address] [place] [address] Tylor Marmolejo MD [address] [facility] [address] [place] [address] Mixed hyperlipidemia (Primary Dx) Social History Tobacco Use Types Packs/Day Years [...] more drinks on one occasion? Never 04/08/2025 [facility] Housing Answer Date Recorded Living Situation Not on file 02/20/2023 Housing Problems Not on file 02/20/2023 [facility] Safety Answer Date Recorded Threatened Not [...] Description 10/11/2025 1:00 PM EDT Office Visit [facility] Primary Care at [facility] [address] [facility] [address] [place] [address] Tylor Marmolejo MD [address] [facility] [address] [place] [address] documented as of this encounter Visit Diagnoses Diagnosis Mixed hyperlipidemia- Primary documented in this encounter Additional Health Concerns Infection Onset Date Last Indicated Resolved Time Gastrointestinal Rule-Out 08/27/2024 08/27/2024 Assessment Noted Time A fall risk assessment has been complete d for the patient 04/08/2025 8:38 AM EDT documented as of this encounter Care Teams Roof Tile Layer Relationship Specialty Start Date End Date Tylor Marmolejo MD PCP - General Family Medicine 09/06/24 documented as of this encounter
[2025-06-29 10:59] VITALS: BP 132/64; PULSE 80; TEMP 36.6; O2SAT 96; BMI 24.9
--- NOTE | 2025-06-29 10:59 | AM.OFFWIN_ITS ---
Intake Vital Signs 06/29/25 10:59 Height 5 ft 1 in Weight 132 lb BMI 24.9 BP 132/64 Blood Pressure Location Lt brachial Position Sitting Pulse 80 Pulse Source Pulse Oximeter Temp 97.8 F Temp Source Oral Pulse Oximetry (%) 96 Oxygen Delivery Method Room Air Intake Visit Reasons: RECEPTIONIST SECRETARY-diarrhea Intake Note: pt presents with c/o chronic watery diarrhea (4x already today) with stomach cramping off/on all year, nausea. Pt reports having recurrent stomach infection twice in May and was on abx. PCP: Dr Jaleel Virgen, MICHA. Allergies Sulfa (Sulfonamide Antibiotics) Adverse Reaction (Severe, Verified 06/29/25 11:05) GI bleed Do you need a note to return to daycare/school/sports/work: No HPI HPI Comments History of Present Illness Details History of Present Illness - The patient is a 79 year old female pr esenting with recurrent watery diarrhea. - She experienced an episode of diarrhea while on a cruise, which resolved, but it recurred this morning with four episodes of watery stool. - The diarrhea is non-bloody, and eating seems to trigger episodes. - Associated symptoms include significan t abdominal bloating described as feeling hard, some weakness, thirst, and a feeling of being lightheaded. - She reports mild cramping today, thoug h she experienced severe cramps during the episode on the ship. - She denies fever, nausea, and vomiting . - She reports that burping helps provide some relief. - The patient has a history of irritable bowel syndrome (IBS) and has had two pr ior stomach infections treated with antibiotics, which were not H. pylori. - She has had prior colonoscopies and en doscopies. - She takes esomeprazole, and her gastro enterologist's nurse suggested switching to famotidine due to diarrhea being a potential side effect. - She follows a BRAT diet with minimal i mprovement. - She denies melena, hematochezia, CP, S OB, weakness or fatigue. - She has no weight loss , food allergie s, or recent antibiotics. - She did come back from a cruise last w [place]. Physical Exam General: Cooperative, healthy appearing, comfortable, no acute distress and well developed Orientation: Patient oriented x3 Limitations: No limitations Respiratory: Normal respiratory effort and able to speak in complete sentences. Clear to auscultation bilaterally. No w/r/r noted. Cardiovascular: Regular rate and rhythm. Normal S1 and S2. No m/r/g noted. GI: Bloated abdomen, soft to palpation, nontender, bloated. No guarding or rebound tenderness noted. Negative CVA tenderness noted. Skin: No rashes or lesions noted Patient was informed and verbally consented to the use of an ambient scribe for clinic note documentation during this visit. Review of Systems Const All systems reviewed & are unremarkable except as noted in HPI and below Physical Exam Vital Signs: Last Vital Signs Temp 97.8 F 06/29/25 10:59 Pulse 80 06/29/25 10:59 BP 132/64 06/29/25 10:59 Pulse Ox 96 06/29/25 10:59 Oxygen Delivery Method Room Air 06/29/25 10:59 BMI result Body Mass Index 24.9 Assessment & Plan Assessment & Plan (1) Diarrhea: Code(s): R19.7 - Diarrhea, unspecified Qualifiers: Diarrhea type: presumed infectious Qualified Code(s): R19.7 - Diarrhea, unspecified Plan Most likely infectious vs IBS vs h pylori vs c diff plan - The patient's presentation of recurrent watery diarrhea, bloating, and cramping is likely an exacerbation of her underlying IBS, potentially triggered by a GI infection or as a side effect of esomeprazole. - Stool studies will be performed to rule out bacterial infections such as C. diff and H. pylori. - Will discontinue esomeprazole and send a prescription for famotidine to the patient's pharmacy. - A prescription for loperamide for symptomatic control of diarrhea will be sent to the pharmacy. - The patient was advised to maintain adequate hydration with water due to symptoms of thirst and lightheadedness.\ - diet as tolerated - will call with the results - needs GI f/u with her PCP and GI when she returns home Orders: Orders CDiff Gene PCR Today R19.7 - Diarrhea, unspecified GI Panel Today R19.7 - Diarrhea, unspecified H pylori Ag Stool Today R19.7 - Diarrhea, unspecified Medications: New famotidine 20 mg PO BID 60 tabs 0RF 30 days loperamide (Anti-Diarrheal (loperamide)) 2 mg PO Q6H PRN 30 caps 0RF loose stool Coding Level of Care Code Est Pt Level 4 (49832) Diagnoses Diarrhea of presumed infectious origin R19.7 Diarrhea type: presumed infectious
== END 2025-06-29 12:23 | disposition home or self-care (01) ==
PROVIDERS: Visit Provider Physician Assistant Medical
DX: R19.7 Diarrhea, unspecified (principal)

== ENCOUNTER → 2025-06-29 10:52 | Outpatient (BNVA) | payer MEDICARE, OTHER, SELFPAY | PROVIDERS: Visit Provider Physician Assistant Medical | DX: R19.7 Diarrhea, unspecified (principal) | CPT/HCPCS: 99212 ==

== ENCOUNTER 2025-07-01 04:15 | Outpatient (REF) | payer MEDICARE, OTHER, SELFPAY ==
--- OUTSIDE RECORDS SUMMARY | 2025-06-28 10:43 | XMS_ITS | Encounter Summary ---
Author Organization [facility] Address [address] [place] [address] Care Team Providers Care Director Of Undergraduate Admissions Name Role Phone Elsewhere, Pcp Primary Care Provider Unavailabl e Reason for Referral * MRI/CAT/PET Scan (Routine) - Closed Specialty Diagnoses / Procedures Referred By Kayla simmons Referred To Contact Radiology Diagnoses Impairment Cognitive Mild Procedures PET MR Brain Focused without IV Contrast Duke Fan M.D. [address] [place] [address] Phone: tel: fax: [facility] Referral ID Status Reason Start Date Expiration Date Visits Re quested Visits Authorized [id number] Closed 06/03/2025 09/03/2026 1 1 * Outpatient (Routine) - Closed Specialty Diagnoses / Procedures Referred By Kayla simmons Referred To Contact Diagnoses Impairment Cognitive Mild Procedures PET MR Brain Focused Amyloid Duke Fan M.D. [address] [place] [address] Phone: tel: fax: [facility] Referral ID Status Reason Start Date Expiration Date Visits Re quested Visits Authorized [id number] Closed 06/03/2025 09/03/2026 1 1 Reason for Visit * Outpatient (Routine) - Closed Specialty Diagnoses / Procedures Referred By Kayla t Referred To Contact Diagnoses Impairment Cognitive Mild Procedures PET MR Brain Focused Amyloid Duke Fan M.D. [address] [place] [address] Phone: tel: fax: [facility] Referral ID Status Reason Start Date Expiration Date Visits Re quested Visits Authorized [id number] Closed 06/03/2025 09/03/2026 1 1 Encounter Details Date Type Department Care Team (Latest Contact Info) Description 06/28/2025 10:43 AM EST - 06/28/2025 11:59 PM [facility] Hospital Encounter Department of Radiology, [facility], in [place], [place] [address] [place] [address] Duke Fan M.D. [address] [place] [address] Impairment Cognitive Mild Discharge Disposition: Home or Self Care Social History Tobacco Use Types Packs/Day Years Used Date Smoking Tobacco: Never Smokeless Tobacco: Never Alcohol Use Standard Drinks/Week Comments Not Currently 0 (1 standard drink = 0.6 oz pur e alcohol) Socially 1 drink [facility] Utilities Answer Date Recorded In the past 12 months has [employer], gas, oil, or water [employer] threatened to shut off services in your [...] your living situation today? 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 [address] [place] [address] 08/03/2025 12:00 PM EST Appointment Department of Laboratory Medicine and Pathology, [facility], in [place] [address] [place] [address] Kiki Hood M.D. [address] [place] [address] 08/03/2025 1:00 PM EST Ancillary Procedure Department of Ophthalmology in [place] [address] [place] [address] Kiki Hood M.D. [facility] [place] [address] 08/03/2025 2:00 PM EST Ancillary Procedure Department of Cardiovascular Diseases in [place] [address] [place] [address] Kiki Hood M.D. [facility] [place] [address] 08/03/2025 3:20 PM EST Comprehensive Visit Preoperative Clinic in [place] [address] [place] [address] Kiki Hood M.D. [facility] [place] [address] 08/15/2025 8:15 AM EST Hospital Encounter PRA [facility] MAIN OR [facility] [place] [address] Kiki Hood M.D. [facility] [place] [address] 08/15/2025 8:15 AM EST - 08/15/2025 10:45 AM EST Surgery FLA ARM[facility] 01 MAIN OR [address] [place] [address] Kiki Hood M.D. [address] [place] [address] BILATERAL EXTERNAL PTOSIS REPAIR 08/30/2025 3:15 PM EST Office Visit Department of Ophthalmology in [place], [place] [address] [place] [address] Kiki Hood M.D. [address] [place] [address] Scheduled Procedures Name Priority Associated [...] S, Nuclear Medicine ARZ LOS, Neuroradiology ARZ [facility], Neuroradiology [facility] N/A Nuclear Medicine, Magnetic Resonance, Magnetic Resonance [...] in older people with normal cognition. Reference: [email or web address] Narrative 06/29/2025 9:42 AM EST REVISED REPORT: [...] collected for attenuation-correction and anatomic correlation purposes. Zooomr software was utilized for additional post-processing and [...] separately with report available under accession # [id number]. Centiloid value: 3.2 Procedure Note Esteban Da [...] was collected forattenuation-correction and anatomic correlation purposes. Zooomr software was utilized for additional post-processing andanalysis, [...] interpreted separately with report available under accession #[id number]. Centiloid value: 3.2 IMPRESSION: Abnormal study. There [...] documented as of this encounter Care Teams Director Of Undergraduate Admissions Relationship Specialty Start Date End Date Elsewhere, Pcp PCP - General Internal Medicine 08/25/24 documented as of this encounter
--- OUTSIDE RECORDS SUMMARY | 2025-07-01 11:17 | XMS_ITS | Encounter Summary ---
Author Organization [facility] Address [address] [place] [address] Care Team Providers Care Marketing Strategy Analyst Name Role Phone Elsewhere, Pcp Primary Care Provider Unavailabl e Reason for Referral * Outpatient (Routine) - Closed Specialty Diagnoses / Procedures Referred By Contact Referred To Contact Gastroenterology and Hepatology Tylor Urbano M.D. [address] [place] [phone] Phone: tel: fax: [facility] Referral ID Status Reason Start Date Expiration Date Visits Re quested Visits Authorized [id number] Closed 05/30/2025 11/29/2026 1 1 Scheduling Instructions Can see FELIPE Encounter Details Date Type Department Care Team (Latest Contact Info) Description 05/30/2025 Clinical Communication Division of Gastroenterology and Hepatology in [place], [place] [address] [place] [phone] Tylor Urbano M.D. [address] [place] [address] Social History Tobacco Use Types Packs/Day Years Used Date Smoking Tobacco: Never Smokeless Tobacco: Never Alcohol Use Standard Drinks/Week Comments Not Currently 0 (1 standard drink = 0.6 oz pur e alcohol) Socially 1 drink [facility] Utilities Answer Date Recorded In the past 12 months has [employer], [employer], or [employer] threatened to shut off services in your [...] your living situation today? 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 [address] [place] [phone] 08/03/2025 12:00 PM EST Appointment Department of Laboratory Medicine and Pathology, [facility], in [address] [address] Kiki Hood M.D. [address] [place] [phone] 08/03/2025 1:00 PM EST Ancillary Procedure Department of Ophthalmology in [address] [place] [address] Kiki Hood M.D. [address] [place] [phone] 08/03/2025 2:00 PM EST Ancillary Procedure Department of Cardiovascular Diseases in [place], [place] [address] [place] [phone] Kiki Hood M.D. [address] [place] [address] 08/03/2025 3:20 PM EST Comprehensive Visit Preoperative Clinic in [place], [place] [address] [place] [address] Kiki Hood M.D. [address] [place] [address] 08/15/2025 8:15 AM EST Hospital Encounter [facility] 01 MAIN OR [address] [place] [address] Kiki Hood M.D. [address] [place] [address] 08/15/2025 8:15 AM EST - 08/15/2025 10:45 AM EST Surgery MIA [facility] 01 MAIN OR [address] [place] [address] Kiki Hood M.D. [address] [place] [address] BILATERAL EXTERNAL PTOSIS REPAIR 08/30/2025 3:15 PM EST Office Visit Department of Ophthalmology in [place], [place] [address] [place] [phone] Kiki Hood M.D. [address] [place] [phone] Scheduled Procedures Name Priority Associated Diagnoses Date/Ti [...] documented as of this encounter Care Teams Marketing Strategy Analyst Relationship Specialty Start Date End Date Elsewhere, Pcp PCP - General Internal Medicine 08/25/24 documented as of this encounter
--- OUTSIDE RECORDS SUMMARY | 2025-07-01 11:17 | XMS_ITS | Clinical Summary ---
Author Organization [facility] Address [address] [place], [place] [phone] Phone Care Team Providers Care Supervisor Electronic Testing Name Role Phone Pcp, Unknown Primary Care [...] Devices Not on file Insurance Care Teams Supervisor Electronic Testing Relationship Specialty Start Date End Date Pcp, Unknown PCP - General 07/12/23 Additional Source Comments The information contained in this document represents components of the legal health record. It is not the complete legal health record.[facility]
--- OUTSIDE RECORDS SUMMARY | 2025-07-01 11:17 | XMS_ITS | Encounter Summary ---
Author Organization [facility] Address [address] [place] [address] Care Team Providers Care Waterproof Material Folder Name Role Phone Elsewhere, Pcp Primary Care Provider Unavailabl e Encounter Details Date Type Department Care Team (Latest Contact Info) Description 05/30/2025 Clinical Communication Division of Gastroenterology and Hepatology in [place], [place] [address] [place] [address] Tylor Urbano M.D. [address] [place] [address] Social History Tobacco Use Types Packs/Day Years Used Date Smoking Tobacco: Never Smokeless Tobacco: Never Alcohol Use Standard Drinks/Week Comments Not Currently 0 (1 standard drink = 0.6 oz pur e alcohol) Socially 1 drink [facility] Utilities Answer Date Recorded In the past 12 months has e [employer], gas, oil, or water [employer] threatened to shut off services in your [...] your living situation today? 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 [facility] [place] [address] 08/03/2025 12:00 PM EST Appointment Department of Laboratory Medicine and Pathology, [facility] in [place] [address] [place] [phone] Kiki Hood M.D. [facility] [place] [phone] 08/03/2025 1:00 PM EST Ancillary Procedure Department of Ophthalmology in [place] [address] [place] [phone] Kiki Hood M.D. [facility] [place] [address] 08/03/2025 2:00 PM EST Ancillary Procedure Department of Cardiovascular Diseases in [place] [address] [place] [phone] Kiki Hood M.D. [facility] [place] [address] 08/03/2025 3:20 PM EST Comprehensive Visit Preoperative Clinic in [place], [place] [address] [place] [phone] Kiki Hood M.D. [address] [place] [address] 08/15/2025 8:15 AM EST Hospital Encounter [facility] MAIN OR [address] [place] [address] Kiki Hood M.D. [facility] [place] [phone] 08/15/2025 8:15 AM EST - 08/15/2025 10:45 AM EST Surgery [place] [address] MAIN OR [address] [place] [phone] Kiki Hood M.D. [facility] [place] [address] BILATERAL EXTERNAL PTOSIS REPAIR 08/30/2025 3:15 PM EST Office Visit Department of Ophthalmology in [place] [address] [place] [address] Kiki Hood M.D. [facility] [place] [address] Scheduled Procedures Name Priority Associated Diagnoses Date/Ti [...] documented as of this encounter Care Teams Waterproof Material Folder Relationship Specialty Start Date End Date Elsewhere, Pcp PCP - General Internal Medicine 08/25/24 documented as of this encounter
--- OUTSIDE RECORDS SUMMARY | 2025-07-01 11:17 | XMS_ITS | Encounter Summary ---
Author Organization [facility] Address [address] [place] [address] Care Team Providers Care Molder Trimmer Name Role Phone Unavailable Primary Care Provider Unavailabl e Source Comments Please be aware that You and/or your organization are solely responsible for the use, security, privacy, and any decisions made with any information you receive from [employer] Reason for Visit * Imaging (Routine) - Closed Specialty Diagnoses / Procedures Referred By Contac t Referred To Contact Procedures BI Mammo Screen Venus Outside Images Radiology, Films Referral ID Status Reason Start Date Expiration Date Visits Re quested Visits Authorized [id number] Closed 01/03/2025 01/03/2026 1 1 Encounter Details Date Type Department Care Team (Late Contact Info) Description 1945 Ancillary Procedure [facility] RADIOLOGY EXTERNAL FILMS [phone] Social History Tobacco Use Types Packs/Day Years [...] Description 10/11/2025 1:00 PM EDT Office Visit [facility] Primary Care at [facility] 1 [facility][Note 3] [address] [place] [address] Tylor Marmolejo MD 1 [facility][Note 3] [address] [place] [address] documented as of this encounter [...]
--- OUTSIDE RECORDS SUMMARY | 2025-07-01 11:17 | XMS_ITS | Encounter Summary ---
Author Organization [facility] Address [address] [place] [address] Care Team Providers Care Oracle Bpm Developer Name Role Phone Elsewhere, Pcp Primary Care Provider Unavailabl e Encounter Details Date Type Department Care Team (Late st Contact Info) Description 06/07/2025 Clinical Communication Department of Neurology in [place], [place] [address] [place] [address] Duke Fan M.D. [address] [place] [address] Social History Tobacco Use Types Packs/Day Years Used Date Smoking Tobacco: Never Smokeless Tobacco: Never Alcohol Use Standard Drinks/Week Comments Not Currently 0 (1 standard drink = 0.6 oz pur e alcohol) Socially 1 drink [facility] Utilities Answer Date Recorded In the past 12 months has e [employer], gas, oil, or water [employer] threatened to shut off services in your [...] your living situation today? 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 [facility] [place] [phone] 08/03/2025 12:00 PM EST Appointment Department of Laboratory Medicine and Pathology, [facility] in [place] [address] [place] [phone] Kiki Hood M.D. [address] [place], [place] [address] [phone] 08/03/2025 1:00 PM EST Ancillary Procedure Department of Ophthalmology in [place] [address] [place] [phone] Kiki Hood M.D. [facility] [place] [address] 08/03/2025 2:00 PM EST Ancillary Procedure Department of Cardiovascular Diseases in [place] [address] [place] [address] Kiki Hood M.D. [address] [place], [place] [address] [address] 08/03/2025 3:20 PM EST Comprehensive Visit Preoperative Clinic in [place], [place] [address] [place] [address] Kiki Hood M.D. [address] [place] [address] 08/15/2025 8:15 AM EST Hospital Encounter [place] [address] MAIN OR [address] [place] [address] Kiki Hood M.D. [facility] [place] [phone] 08/15/2025 8:15 AM EST - 08/15/2025 10:45 AM EST Surgery [place] [address] MAIN OR [facility] [place] [address] Kiki Hood M.D. [facility] [place] [address] BILATERAL EXTERNAL PTOSIS REPAIR 08/30/2025 3:15 PM EST Office Visit Department of Ophthalmology in [place] [address] [place] [address] Kiki Hood M.D. [facility] [place] [address] Scheduled Procedures Name Priority Associated Diagnoses Date/Ti [...] documented as of this encounter Care Teams Oracle Bpm Developer Relationship Specialty Start Date End Date Elsewhere, Pcp PCP - General Internal Medicine 08/25/24 documented as of this encounter
--- OUTSIDE RECORDS SUMMARY | 2025-07-01 11:17 | XMS_ITS | Encounter Summary ---
Author Organization [facility] Address [address] [place] [address] Care Team Providers Care Printed Circuit Boards Contact Printer Name Role Phone Elsewhere, Pcp Primary Care Provider Unavailabl e Encounter Details Date Type Department Care Team (Latest Contact Info) Description 06/29/2025 Clinical Communication Division of Gastroenterology and Hepatology in [place], [place] [address] [place] [address] Danielle Brunson, PAlexys-C., M.S. [address] [place] [address] Social History Tobacco Use Types Packs/Day Years Used Date Smoking Tobacco: Never Smokeless Tobacco: Never Alcohol Use Standard Drinks/Week Comments Not Currently 0 (1 standard drink = 0.6 oz pur e alcohol) Socially 1 drink [facility] Utilities Answer Date Recorded In the past 12 months has e [employer], gas, oil, or water [employer] threatened to shut off services in your [...] your living situation today? 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 [facility] [place] [phone] 08/03/2025 12:00 PM EST Appointment Department of Laboratory Medicine and Pathology, [facility] in [place] [address] [place] [address] Kiki Hood M.D. [address] [place], [place] [address] [place] [address] 08/03/2025 1:00 PM EST Ancillary Procedure Department of Ophthalmology in [place] [address] [place] [address] Kiki Hood M.D. [facility] [place] [address] 08/03/2025 2:00 PM EST Ancillary Procedure Department of Cardiovascular Diseases in [place] [address] [place] [phone] Kiki Hood M.D. [facility] [place] [address] 08/03/2025 3:20 PM EST Comprehensive Visit Preoperative Clinic in [place], [place] [address] [place] [place] [phone] Kiki Hood M.D. [address] [place] [address] 08/15/2025 8:15 AM EST Hospital Encounter [facility] MAIN OR [address] [place] [phone] Kiki Hood M.D. [facility] [place] [address] 08/15/2025 8:15 AM EST - 08/15/2025 10:45 AM EST Surgery [facility] MAIN OR [facility] [place] [address] Kiki Hood M.D. [facility] [place] [address] BILATERAL EXTERNAL PTOSIS REPAIR 08/30/2025 3:15 PM EST Office Visit Department of Ophthalmology in [place], [place] [address] [place] [phone] Kiki Hood M.D. [facility] [place] [address] Scheduled Procedures Name Priority Associated Diagnoses Date/Ti [...] documented as of this encounter Care Teams Printed Circuit Boards Contact Printer Relationship Specialty Start Date End Date Elsewhere, Pcp PCP - General Internal Medicine 08/25/24 documented as of this encounter
--- OUTSIDE RECORDS SUMMARY | 2025-07-01 11:17 | XMS_ITS | Data Portability ---
Author Organization [place] - [facility] [place] Diallo, [facility] Address [address] [place] [address] Assessment Encounter Date Assessment Date Assessment LastModified by Organization Details LastModified Time 10/02/2021 10/02/2021 Balance testing was completed at last visit and I personally reviewed the results. 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 However, cVEMP testing revealed some asymmetry so CT scan was ordered to rule out Superior Semicircular Canal dehiscence. I will call patient with results of imaging. 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 Will send to Dr. Morris Ahumada if there is any evidence of SSCD. [email or web address] Not available 10/02/2021 16:27:59 11/26/2022 11/26/2022 Patient had recurrence of vertigo about 3 weeks ago. Her daughter is a physician records management assistant recommended she do a home Sukhdeep maneuver. She did this and was significantly improved almost immediately afterwards. Has had no vertigo since then. Previous balance testing did suggest that her dizziness was more central in origin and there were some findings on the CT scan which might have supported this. She was seen by Dr. Bynum who suggested that her symptoms could be due to nerve impingement and recommended some physical therapy to address this. She is unsure if this improved her however I suspect it had as she had been fairly symptoms freem prior to the episode 3 weeks ago. Most recent episode is somewhat characteristic of BPPV and home Sukhdeep resolved symptoms further supporting this. With resolution of dizziness we will just monitor at this time. She has noticed that her baseline tinnitus flared more than usual last Friday night when she layed down for bed. No perceivable hearing loss associated. 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 I recommended that we repeat audiologic testing to monitor for changes. If testing is fairly stable I would likely recommend annual follow up with audio to monitor and she will return sooner with any vertigo exacerbations [email or web address] Not available 11/26/2022 10:04:37 12/17/2022 12/17/2022 Audiologic testing was completed today for evaluation of patient's subjectively worsening left-sided tinnitus. Overall tinnitus does seem to be bilateral but has been getting worse on the left side. Audiologic testing today was essentially unchanged compared to results from September of this year demonstrating fairly symmetric bilateral high frequency SNHL. We again discussed the relationship between her high frequency hearing loss and tinnitus. Patient was reassured and we reviewed masking techniques to help with the tinnitus. Has had no issues with her vertigo since she performed home Sukhdeep maneuver just prior to last visit. Recommended annual follow-up with audiologic testing. Would likely benefit from hearing amplification at some point down the road and has benefits through her insurance. [email or web address] Not available 12/17/2022 11:41:36 12/17/2022 12/17/2022 Otoscopy reveale d clear outer ear canals and intact tympanic membranes, bilaterally. Tympanometry revealed normal middle ear pressure and compliance, bilaterally. Audiological testing revealed a mild to moderately severe sensorineural hearing loss, bilaterally. Speech colors custodian thresholds were consistent with pure tone thresholds, bilaterally. Good word recognition scores were obtained in each ear at normal conversational levels. Results were reviewed with the patient who verbalized understanding. Recommend annual audiological testing. [email or web address] Not available 12/17/2022 13:52:02 02/26/2023 02/26/2023 Patient presents to further discuss CT temporal bone that was completed in October 2021. This imaging showed asymmetric enlargement of the left cavernous sinus with protrusion of the sella and I referred her to neurology to have this further evaluated. Continues to report intermittent left-sided headaches especially when she is laying down. Denies any vision changes or facial weakness. She states that she never had an MRI completed so I ordered this today. I stressed the importance of following up with the neurologist to have this further evaluated. She confirms her understanding. I will try and call her with the results of the MRI once available. [email or web address] Not available 02/26/2023 16:00:26 Plan of Treatment Reminders Order Date Submit Date Provider Last Modified By Organization Details Last Modified Time Details Appointments None recorded. Lab None recorded. Referral None recorded. Procedures None recorded. Surgeries None recorded. Imaging MRI, brain + internal auditory canal, w/wo contrast - Please contact patient to schedule, thank you! 2022 023 [facility], [address], [place], [address], 14:07:22 CT, temporal bone, w/o contrast - please contact patient for scheduling . Thanks! 2021 022 [facility], [address], [address], [place], [address], 09:56:43 Medication Orders None recorded. Patient TargetsNo targets recorded. Patient InstructionsNo instructions recorded. Reason for Referral None Reported. Results Created Date Observation Date Name Description Value Unit Range Abnormal Flag Note LastModifiedBy Organization Detail LastModifiedTime 09/27/19 video nysta gmogr aph No observ ation record ed. [email or web address] Not Available 2021 08:01:38 09/27/19 audio gram + tympa nogra m No observ ation record ed. [email or web address] Not Available 09/26 12:29:11 09/27/19 22 vesti bular evoke d myoge jc poten tial No observ ation record ed. [email or web address] Not Available 09/26 12:29:56 09/27/19 audit ory brain stem respo nse (abr) (PROC ) No observ ation record ed. [email or web address] Not Available 03/2022 08:37:09 10/17/19 22 10/16/2021 CT, tempo ral bone, w/o contr ast No observ ation record ed. [email or web address] [facility] [address], [place], [address], 10/16/2021 14:05:26 10/17/19 22 10/16/2021 CT, tempo ral bone, w/o contr ast No observ ation record ed. [facility] [address], [place], [address], 10/16/2021 14:05:27 12/18/19 23 audio gram + tympa nogra m No observ ation record ed. [email or web address] Not Available 12/17 13:50:58 03/07/20 23 03/07/2023 MRI, brain + inter nal audit ory canal , w/wo contr ast No observ ation record ed. [facility] [address] [place], [address], 03/13/2023 15:18:07 03/11/20 23 03/07/2023 MRI, brain + inter nal audit ory canal , w/wo contr ast No observ ation record ed. [facility] [address] [place], [address], 03/13/2023 15:18:08 03/17/20 23 03/07/2023 MRI, brain + inter nal audit ory canal , w/wo contr ast No observ ation record ed. [facility] [address] [place], [address], 03/17/2023 15:16:24 Result Notes None recorded. Procedures Surgical History Date Name Laterality Status Provider Name and Address Organization Details Recorded Time 12/18/19 AUD - COMPREHENSIVE AUDIOMETRY, EVAL & SPEECH RECOGNITION completed MADDY Taylor [address], [place], [address], [facility] - [facility], [place] 12/17/2022 13:51:46 12/18/19 AUD - TYMPANOMETRY completed MADDY Taylor [address], [place], [address], [facility], [place] 12/17/2022 13:51:49 06/18/20 Cancer Surgery completed Shalonda Johnson [facility], [place] 11/26/2022 08:17:23 09/27/19 Balance Testing [place] , [place] [id number], [place], [address], [facility], [place] 09/26/2021 12:22:14 09/27/19 AUD - COMPREHENSIVE AUDIOMETRY, EVAL & SPEECH RECOGNITION completed Kylee Howell , [place] [id number], [place], [address], [facility], [place] 09/26/2021 12:31:17 09/27/19 AUD - TYMP & REFLEX completed Kylee Howell , [place] [address], [place], [address], [facility], [place] 09/26/2021 12:31:21 partial hysterectomy completed Dasha Martínez [facility], [place] 09/10/2021 14:23:25 cholecystectomy completed Dasha Martínez [facility], [place] 09/10/2021 14:23:39 laparoscopy completed Dasha Martínez [facility], [place] 09/10/2021 14:23:47 Imaging Results None recorded. Procedure Notes None recorded. Medical Equipment None Reported. Allergies Allergen ID Allergen Name Allergen Category Reaction Reaction Severity Criticality Documentation Date Start Date Code Code System Note Provider Name and Address Organization Details Recorded Time 846961 Product containin g penicilli n (product) medicatio n Not available Not available Not available 09/10/2021 30004 8001 SNOMED Dasha adkins [facility], [place] 2 14:20:55 [id number] Cipro medicatio n Not available Not available Not available 09/10/202108114 3 RxNorm Shalonda adkins [facility] [place] 3 08:17:16 [id number] Substance with sulfonami de structure and antibacte rial mechanism of action (substanc e) medicatio n Not available Not available Not available 09/10/2021 17994 8003 SNOMED Dasha Martínez [place], [place] - [facility] [place] 2 14:21:05 Medications Name Sig Start Date Stop Date Status Note LastModified by Organization Details LastModified Time [place] Thyroid 60 mg tablet TAKE 1 TABLET BY MOUTH EVERY DAY 09/10 completed Not Available Not Available Not Available atorvastati n 40 mg tablet TAKE 1 TABLET BY MOUTH EVERYDAY active Not Available Not Available No t Available atorvastati n 80 mg tablet TAKE 1 TABLET BY MOUTH EVERY DAY 09/10 completed Not Available Not Available Not Available doxycycline hyclate 100 mg capsule TAKE 1 CAPSULE BY MOUTH TWICE A DAY FOR 7 DAYS 02/25 completed Not Available Not Available Not Available atorvastati n 20 mg tablet TAKE 1 TABLET BY MOUTH DAILY 09/10 completed Not Available Not Available Not Available bethanechol chloride 10 mg tablet TAKE 1 TABLET BY ORAL ROUTE 3 TIMES EVERY DAY ON AN EMPTY STOMACH, 1 HOUR BEFORE MEALS 09/10 completed Not Available Not Available Not Available fluconazole 150 mg tablet TAKE 1 TABLET BY MOUTH EVERY 72 HOURS FOR 6 DAYS 02/25 completed Not Available Not Available Not Available metoprolol succinate ER 50 mg tablet,exte nded release 24 hr USE DIRECTED FOR CTA 09/10 completed Not Available Not Available Not Available hydrocodone 5 mg-acetamin ophen 325 mg tablet TAKE 1 TABLET EVERY 4 HOURS FOR 3 DAYS NEEDED 09/10 completed Not Available Not Available Not Available sucralfate 1 gram tablet TAKE 1 TABLET BY ORAL ROUTE 4 TIMES EVERY DAY ON AN EMPTY STOMACH 1 HOUR BEFORE MEALS AND AT BEDTIME 11/26 completed Not Available Not Available Not Available Synthroid 100 mcg tablet TAKE 1 TABLET BY MOUTH EVERY DAY 09/10 completed Not Available Not Available Not Available clobetasol 0.05 % topical cream APPLY 1 APPLICATI ON TO AFFECTED AREA EXTERNALL Y TWICE A DAY FOR 30 DAYS 11/26 completed Not Available Not Available Not Available meclizine 12.5 mg tablet TAKE 1 TABLET BY MOUTH (3 TIMES A DAY) FOR 3 DAY NEEDED FOR DIZZINESS 09/10 completed Not Available Not Available Not Available metronidazo le 500 mg tablet TAKE 1 TABLET BY MOUTH TWICE A DAY FOR 7 DAYS 11/26 completed Not Available Not Available Not Available terbinafine HCl 250 mg tablet TAKE 1 TABLET BY MOUTH EVERY DAY FOR 2 WEEKS 11/26 completed Not Available Not Available Not Available famotidine 20 mg tablet TAKE 1 TABLET BY MOUTH TWICE DAY NEEDED 11/26 completed Not Available Not Available Not Available meclizine 25 mg tablet TAKE 1 TABLET BY MOUTH 3 TIMES A DAY IF NEEDED FOR DIZZINESS FOR UP TO 10 DAYS. 11/26 completed Not Available Not Available Not Available econazole nitrate 1 % topical cream APPLY SPARINGLY TWICE A DAY TO ALL AFFECTED RASH AREAS.*PA IN PROCESS 09/10 completed Not Available Not Available Not Available cephalexin 500 mg capsule TAKE ONE CAPSULE BY MOUTH EVERY EIGHT HOURS FOR TEN DAYS 11/26 completed Not Available Not Available Not Available pantoprazol e 40 mg tablet,rosalba yed release TAKE 1 TABLET BY MOUTH EVERY DAY 11/26 completed Not Available Not Available Not Available clotrimazol e-betametha sone 1 %-0.05 % topical cream APPLY TO AFFECTED AREA TWICE A DAY FOR 28 DAYS 11/26 completed Not Available Not Available Not Available Synthroid 88 mcg tablet TAKE 1 TABLET BY MOUTH EVERY DAY IN THE MORNING active Not Available Not Available No t Available Synthroid 75 mcg tablet 11/26 completed Not Available Not Available Not Available omeprazole 20 mg capsule,del ayed release TAKE 1 CAPSULE BY MOUTH EVERY DAY 11/26 completed Not Available Not Available Not Available hydrocortis one 2.5 % topical cream APPLY THIN COAT TO AFFECTED AREA TWICE A DAY 11/26 completed Not Available Not Available Not Available clindamycin 2 % vaginal cream INSERT 1 APPLICATO RFUL VAGINALLY EVERY DAY AT BEDTIME FOR 7 DAYS 12/16 completed Not Available Not Available Not Available ammonium lactate 12 % topical cream APPLY TO LEGS EVERYDAY AFTER SHOWER active Not Available Not Available No t Available mupirocin 2 % topical ointment APPLY TO AFFECTED AREA TWICE A DAY - 3 TIMES A DAY 09/10 completed Not Available Not Available Not Available estradiol 0.01% (0.1 mg/gram) vaginal cream INSERT ONE GRAM VAGINALLY EVERY OTHER DAY AT BEDTIME active Not Available Not Available No t Available ketoconazol e 2 % topical cream APPLY TO FEET TWICE A DAY FOR 4 WEEKS 09/10 completed Not Available Not Available Not Available hydroxyzine HCl 10 mg tablet TAKE 1 TABLET BY MOUTH EVERY DAY 11/26 completed Not Available Not Available Not Available fluticasone propionate 50 mcg/actuati on nasal spray,suspe nsion TAKE 2 PUFFS IN EACH NOSTRIL ONCE A DAY 11/26 completed Not Available Not Available Not Available doxycycline hyclate 100 mg tablet TAKE 1 TABLET BY MOUTH TWICE A DAY FOR 7 DAYS 11/26 completed Not Available Not Available Not Available dicyclomine 10 mg capsule TAKE 1 CAPSULE BY MOUTH FOUR TIMES A DAY 09/10 completed Not Available Not Available Not Available nitrofurant oin monohydrate /macrocryst als 100 mg capsule TAKE 1 CAPSULE BY MOUTH EVERY 12 HOURS FOR 14 DAYS 11/26 completed Not Available Not Available Not Available BinaxNOW COVID-19 Ag Self Test kit USE DIRECTED ON THE BOX 11/26 completed Not Available Not Available Not Available Paxlovid 150 mg-100 mg tablets in a dose pack (Moderate Renal Dose) TAKE 1 TABLET BY MOUTH TWICE A DAY 11/26 completed Not Available Not Available Not Available Vitals Date Recorded Body height Systolic And Diastolic Provider Name and Address Organization Details Last Updated DateTime 10/02/2021 154.94 cm 151/89 mm[Hg] Ashli bailey [facility] [place] 10/02/2021 14:06:58 Date Recorded Body height Body mass index (BMI) Body weight Heart rate Systolic And Diastolic Provider Name and Address Organization Details Last Updated DateTime 11/26/2022 154.94 cm 25.5 kg/m2 69429.97 g 71 /min 145/85 mm[Hg] Shalonda Johnson [facility] [place] 11/26/2022 08:29:26 Date Recorded Body height Body mass index (BMI) Body weight Provider Name and Address Organization Details Last Updated DateTime 12/17/2022 154.94 cm 25.3 kg/m2 37852.38 g Therese Gotti [facility] [place] 12/17/2022 10:51:55 Date Recorded Body height Body mass index (BMI) Body weight Heart rate Systolic And Diastolic Provider Name and Address Organization Details Last Updated DateTime 02/26/2023 154.94 cm 25.5 kg/m2 18287.97 g 79 /min 138/86 mm[Hg] Tamimentfloridalma Beverly [place] - [facility] [place] 02/26/2023 15:17:31 Social History Question Answer Notes LastModified by Organizat ion Details LastModified Time Tobacco Smoking Status Never Smoker Dasha Reyessteve adkins [place] - [facility] [place] 09/10/2021 14:20:41 Do You Have An Advance Directive? No Information not available 09/10/2021 Are You Blind Or Do You Have Difficulty Seeing? No Information not available 02/26/2023 What Is Your Level Of Caffeine Consumption? Moderate [email or web address] Information not available 02/26/2023 Are You Deaf Or Do You Have Serious Difficulty Hearing? No [email or web address] Information not available 02/26/2023 Do You Have A Medical Power Of Installation Engineer? No [email or web address] Information not available 02/26/2023 What Was The Date Of Your Most Recent Tobacco Screening? 02/26/2023 Information not available 02/26/2023 Do You Have Any Pets? No Information not available 02/26/2023 Are There Any Smokers In Your House? No Information not available 02/26/2023 Has Tobacco Cessation Counseling Been Provided? No Information not available 02/26/2023 Sex: Unknown Functional Status Question Answer Note LastModified by Organizat ion Details LastModified Time Do you use any illicit or recreational drugs? No Information not available 09/10/2021 Do you or have you ever used any other forms of tobacco or nicotine? No Information not available 09/10/2021 What is your level of alcohol consumption? Occasional Information not available 09/10/2021 Do you or have you ever used smokeless tobacco? Never used smokeless tobacco [email or web address] Information not available 11/26/2022 Are you able to care for yourself independently? Yes [email or web address] Information not available 02/26/2023 What is your occupation? Retired Information not available 02/26/2023 Mental Status None recorded. Family History Relationship Description Onset Age of this Age Resolved Age Notes LastModified by Organization Details LastModified Time Father No current problems or disability Not available 02/26 15:12:43 Father History of cardiovascul ar disease [email or web address] Not available 10/02/2021 14:06:12 Mother No current problems or disability [email or web address] Not available 02/26 15:12:43 Brother History of cardiovascul ar disease [email or web address] Not available 10/02/2021 14:06:12 Medical History Condition Response Chronic Sinus Disease/Infections N Hyperthyroidism N Emphysema N Currently on Blood Thinners N Chronic Ear Infections/Ear Drainage N Hypothyroidism Y Glaucoma N Depression N Neurology - Seizures/Epilepsy N Headaches/Migraines N Cancer - Skin N Anxiety Disorder Y Hearing Loss N Arthritis N Acid Reflux (GERD) Y Cancer N Stroke N Celiac disease N GERD N Skin Cancer N Sickle Cell Disease N Rheumatoid Arthritis N Fibromyalgia N Speech Delay N Kidney Disease Y HIV N Allergies/Hayfever N Heart Problems N Heart Conditions N Asthma/COPD/Emphysema N Migraines N Thyroid Problems Y Ear Infections N Developmental Delay N Anemia N Hepatitis C N Immune System Disorder N Heart Attack ([place]) N IgA or IgM Immunodeficiency N Diabetes N Bleeding Disorder N Tuberculosis N Asthma N Hepatitis B N Lupus N Ears Ringing (Tinnitus) N Reflux/GERD Y Sleep Apnea N Sleep Disorder N Cirrhosis N Heart Disease N Dizziness/Vertigo Y Hypertension N Gynecological HistoryNo gynecological history recorded. Obstetrics History GPAL:G 0 P 0 0 0 0 Immunizations Vaccine Type Date Status Note Provider Nam e and Address Organization Details Recorded Time COVID-19, mRNA, LNP-S, PF, 100 mcg/0.5mL dose or 50 mcg/0.25mL dose 07/07/2020 completed Ashli adkins [facility] [place] 10/02/2021 14:06:30 COVID-19, mRNA, LNP-S, PF, 100 mcg/0.5mL dose or 50 mcg/0.25mL dose 08/07/2020 completed Ashli adkins [facility] [place] 10/02/2021 14:06:38 Past Encounters Encounter ID Performer Location Encounter Start Date Encounter Closed Date Diagnosis/Indication Diagnosis SNOMED-CT Code Diagnosis ICD10 Code Diagnosis IMO Codes Diagnosis Note [id number] [facility] [address] [place] [address] 09/10/2021 14:00:44 09/10/2021 14:53:44 Peripheral vertigo 08194736 H81.399 Dizziness and giddiness 767727299 R42 Sensorineu ral hearing loss of bilateral ears 289373111 H90.3 [id number] MADDY Doherty [facility] [address] [place] [address] 09/26/2021 07:50:42 09/26/2021 09:59:54 Sensorineural hearing loss of bilateral ears 978384185 H90.3 Dizziness and giddiness 785931850 R42 [id number] MADDY Doherty [facility] [address] [place] [address] 09/26/2021 07:51:07 09/26/2021 10:00:01 Sensorineural hearing loss of bilateral ears 575182988 H90.3 Dizziness and giddiness 366219771 R42 [id number] [facility]AW[facility] [address] [place] [address] 10/02/2021 13:59:36 10/02/2021 14:24:47 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 513267177 H83.8X9 Dizziness and giddiness 728704779 R42 [id number] [facility] DUNAW[facility] [address] [place] [address] 11/26/2022 08:14:36 11/26/2022 08:59:42 Dizziness and giddiness 516829629 R42 Peripheral vertigo 63671 001 H81.399 Sensorineu ral hearing loss of bilateral ears 941150711 H90.3 [id number] [facility] DUNAWAY S [facility] [address] [place] [address] 12/17/2022 10:18:53 12/17/2022 11:24:39 Bilateral tinnitus 7884243246 102 H93.13 Sensorineu ral hearing loss of bilateral ears 796877343 H90.3 Peripheral vertigo 03576 001 H81.904 [id number] MADDY Doherty [facility] [address] [place] [address] 12/17/2022 10:20:35 12/17/2022 11:23:01 Sensorineural hearing loss of bilateral ears 509185785 H90.3 Dizziness and giddiness 497339446 R42 [id number] [facility]WAY [facility] [address] [place] [address] 02/26/2023 15:12:23 02/26/2023 15:36:23 Mass lesion of brain 190996444 R22.0 Tinnitus of left ear 619 3812766 106 H93.12 Health Concerns Section Related Observation LastModified by Organization Detai ls LastModified Time None Recorded Concern Status LastModified by Organization Details LastModified Time None Recorded Advance Directives Directive N: Payers Insurance Date Sequence Insurance Name Policy Number Policy [place] Covered Member ID [place] Member ID Guarantor Name 03/24/2025 1 [place] Kathleen Wyatt [id number] Kathleen Wyatt 02/10/2025 1 [employer] - GOLD PLUS (MEDICARE REPLACEMENT/A DVANTAGE - HMO) Kathleen Wyatt [id number] Kathleen Wyatt 11/21/2022 1 [employer] (MEDICARE REPLACEMENT/A DVANTAGE - HMO) Kathleen Yoselin [id number] Kathleen Wyatt Notes Date Note Type Note Provider Name and Address Organization Details Recorded Time 10/02/2021 text/html Patient presents for follow-up after balance testing. Symptoms remain unchanged. She is now endorsing some intermittent headaches starting at the occipital scalp and running down the back of the neck. Does report that she has been under a lot of stress lately and believes that these could be more tension headaches. Symptoms mild to moderate. Daily. No other alleviating or exacerbating factors. [facility] DUNAWAY [address], [place], [address], [facility], [place] 10/02/2021 16:29:25 11/26/2022 text/html Patient presents for follow-up of vertigo. States that she had recurrence about 3 weeks ago. Her daughter is a physician records management assistant recommended she do an Sukhdeep maneuver at home. She perform this and had instant relief in symptoms. Doing very well at this time but does have complaints of worsening left-sided tinnitus. Was previously noted to have high frequency hearing loss on both sides which is likely contributory. Moderate daily. No relieving factors. [facility] DUNAWAY [id number], [place], [address], [facility] [place] 11/26/2022 10:05:13 12/17/2022 text/html Patient is a 76 year old female seen today for annual audiological testing in conjunction ith seeing LAMONT Dunaway. Describes episodes of swaying sensation with some visual disturbances but denies any room spinning sensation or nausea. Episodes were evaluated at the ER and elevated blood pressure was noted. Patient states that she has been worked up by a staff nuclear medicine technologist and this was determined to not be the cause of her symptoms. Patient notes some hearing loss. No ongoing tinnitus or ear pain. Patient is here today due to worsening symptoms of dizziness [place] [address] [address], [place], [address], [facility], [place] 12/18/2022 12:28:53 12/17/2022 text/html Patient following up on tinnitus and vertigo. Vertigo resolved after home Sukhdeep maneuver performed prior to last visit and she has no complaints in regards to this today. She is continuing to endorse tinnitus however her hearing seems to be stable. The tinnitus is bilateral. Worse in quiet environments. No alleviating factors. LAMONT DUNAWAY [address] [address], [place], [address], [facility], [place] 12/17/2022 11:42:00 02/26/2023 text/html Patient presents to further discuss CT temporal bone that was completed in October 2021. This imaging showed asymmetric enlargement of the left cavernous sinus with protrusion of the sella and I referred her to neurology to have this further evaluated. Continues to report intermittent left-sided headaches especially when she is laying down. Denies any vision changes or facial weakness. She states that she never had an MRI completed so I ordered this today. She states that when she saw the neurologist she felt that the CT findings were not addressed at that visit. Has not seen the neurologist since. Symptoms of mild. Intermittent. LAMONT DUNAWAY [address] [address], [place], [address], [facility] 02/26/2023 16:00:49 OBGyn Episode No OBEpisode recorded.
--- OUTSIDE RECORDS SUMMARY | 2025-07-01 11:17 | XMS_ITS | Data Portability ---
Author Organization [place] [facility] Address [address] [place] [address] Care Team Providers Care Sole Sewer Hand Name Role Phone RICHY ROBINS Primary Care Provider Assessment Encounter Date Assessment Date Assessment LastModified by Organization Details LastModified Time 02/20/2022 02/20/2022 1. 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 She has pain well localized to the common extensor origin at the lateral epicondyle. She presents with MRI which demonstrates tendinosis and tearing of the common extensor group along with a chronic radial collateral ligament tear. She does not have evidence of elbow instability. Her evaluation is consistent with lateral epicondylitis. We discussed the diagnosis and natural history of the condition. She has not attempted a therapy course. I recommended referral for a Nirschl program. We recommend follow-up with our clinic in 2 to 3 months time. If symptoms do not improve, we will consider lateral epicondyle debridement. All questions concerns were addressed. [email or web address] Not available 02/20/2022 14:16:00 05/01/2022 05/01/2022 1. 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 Torres presents to the office for reevaluation of her right elbow. She admits to participating in physical therapy and notes improvement of her lateral elbow discomfort. She remains very active participating in various forms of activity including Pilates, yoga, and Judi. She states that while performing these activities she has no discomfort. We reviewed the nature of the diagnosis along with treatment options. She is asking about PRP therapy which I do not feel been appropriate therapy for this diagnosis. She shows an understanding of the above. Encouraged to complete her course of therapy then with home exercise program. She will follow-up with our office on an as-needed basis. Dr. Aguilar is present in the office and is immediately available. [email or web address] Not available 05/01/2022 13:25:05 09/11/2022 09/11/2022 1. Right shoulde r rotator cuff tendinopathy, 2 months duration Kathleen presents today with pain well localized to the greater tuberosity. Her examination is consistent with rotator cuff tendinitis. We reviewed the diagnosis and the natural history of the condition. We discussed recommendations for a conservative treatment approach. Referral to therapy has been placed. She would like to defer an injection today. We will plan on seeing her back in clinic in 2 months time for clinical recheck. If symptoms are not significantly improved, consider injection. All questions and concerns were addressed today. A mid-level provider in my office (nurse practitioner or physician elementary assistant principal) may see this patient on follow-up visits and continue to implement the objectives of this plan including: Starting or adjusting medications, injections, cast application, orthotics, brace application, physical therapy, radiological studies (including x-ray, MRI, CT, ultrasound, bone scan), vascular studies, neurologic studies, specialist consultation, and proceeding with surgical management, as appropriate. [email or web address] Not available 09/11/2022 14:07:52 Plan of Treatment Reminders Order Date Submit Date Provider Last Modified By Organization Details Last Modified Time Details Appointments None recorded. Lab None recorded. 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 Please send patient to: [facility] [address], [place] [address] Ph. CPT CODES 59586, 37226, 41143 X 1, 60817, 22553, 89909, 80733, G0283, 32097, 81050 X 12 2021 022 [facility], [address], [place], [address], 2 11:26:08 Procedures None recorded. Surgeries None recorded. Imaging XR, shoulder, 2 or more view 2022 023 [email or web address] In-House Results, For Internal Use Only, Do Not Delete/merge, [id number] 3 16:32:02 XR, elbow 2021 022 [email or web address] In-House Results, For Internal Use Only, Do Not Delete/merge, [id number] 2 14:17:30 Medication Orders None recorded. Patient TargetsNo targets recorded. Patient Instructions Encounter Date Encounter Id Patient Instructions Last Modified By Organization Details Last Modified Time 09/11/2022 [id number] body mass index: care instructions [email or web address] Not available 09/11/2022 14:09:08 Reason for Referral patient scheduled for 10 wk recheck on 05/01/2022 with LAMONT PARKER-CPatient insurance requires authorization in order for patient to be scheduled with provider listed below. Please send patient to:[facility], [place], [place] [address]Jc. Fax cPT CODES 97464, 53958, 16505 X 1, 80758, 17674, 91186, 31730, G0283, 36906, 70177 X 12 Referring Physician: Dami Aguilar, Orthopedic Surgery, Encounter Date: 02/20/2022 Physical Therapist Referral for Tendinitis of right rotator cuff Referring Physician: Dami Aguilar, Orthopedic Surgery, Encounter Date: 09/11/2022 Results Created Date Observation Date Name Description Value Unit Range Abnormal Flag Note LastModifiedBy Organization Detail LastModifiedTime 02/21/20 22 XR, elbow No observ ation record ed. In-House Results For Internal Use Only, Do Not Delete/merge, [id number] 02/20/2022 14:13:36 09/11/19 23 XR, shoul darleen, 2 or more view No observ ation record ed. [email or web address] In-House Results For Internal Use Only, Do Not Delete/merge, [id number] 09/11/2022 14:08:18 11/13/19 25 XR, hip + pelvi s, unila teral , 2 or 3 view No observ ation record ed. MYESHA In-House Results For Internal Use Only, Do Not Delete/merge, [id number] 11/12/2024 12:05:25 11/13/19 25 XR, lumbo sacra l spine , 4 or more view No observ ation record ed. MYESHA In-House Results For Internal Use Only, Do Not Delete/merge, [id number] 11/12/2024 12:05:21 Result Notes None recorded. Problems Name Problem SNOMED Code Status Onset Date Resolution Date Notes Provider Name and Address Organization Details Recorded Time Right lateral elbow tendinopath y 7230303664257 07 Active 2021 Sadia Charles [facility] 2 06:25:14 Problem Notes None recorded. Procedures Surgical History Date Name Laterality Status Provider Name and Address Organization Details Recorded Time Ankle/Foot Surgery completed [facility] 02/20/2022 13:44:52 Imaging Results None recorded. Procedure Notes None recorded. Medical Equipment None Reported. Allergies Allergen ID Allergen Name Allergen Category Reaction Reaction Severity Criticality Documentation Date Start Date Code Code System Note Provider Name and Address Organization Details Recorded Time 07475 Cipro medicatio n Not available Not available Not available 02/20/202235529 3 [facility] 2 13:46:31 35701 Substance with sulfonami de structure and antibacte rial mechanism of action (substanc e) medicatio n Not available Not available Not available 02/20/2022 92386 8003 SNOMED [facility] 2 13:46:39 22910 Product containin g penicilli n (product) medicatio n hives Not available Not available 05/01/2022 00317 8001 SNOMED Judie Mccoy PA-C [address] [place], [address] [place] [address] - [facility] 13:20:46 Medications Name Sig Start Date Stop Date Status Note LastModified by Organization Details LastModified Time atorvastati n 40 mg tablet TAKE 1 TABLET BY MOUTH EVERYDAY active Not Available Not Available No t Available bethanechol chloride 10 mg tablet TAKE 1 TABLET BY ORAL ROUTE 3 TIMES EVERY DAY ON AN EMPTY STOMACH, 1 HOUR BEFORE MEALS NEEDED 05/01 completed Not Available Not Available Not Available fluconazole 150 mg tablet TAKE 1 TABLET BY MOUTH EVERY 72 HOURS 11/10 completed Not Available Not Available Not Available sucralfate 1 gram tablet TAKE 1 TABLET BY ORAL ROUTE 4 TIMES EVERY DAY ON AN EMPTY STOMACH 1 HOUR BEFORE MEALS AND AT BEDTIME active Not Available Not Available No t Available clobetasol 0.05 % topical cream APPLY 1 APPLICATI ON TO AFFECTED AREA EXTERNALL Y TWICE A DAY FOR 30 DAYS 05/01 completed Not Available Not Available Not Available meclizine 12.5 mg tablet TAKE 1 TABLET BY MOUTH (3 TIMES A DAY) FOR 3 DAY NEEDED FOR DIZZINESS 05/01 completed Not Available Not Available Not Available metronidazo le 500 mg tablet TAKE 1 TABLET (500 MG TOTAL) BY MOUTH IN THE MORNING AND BEFORE BEDTIME FOR 7 DAYS 11/10 completed Not Available Not Available Not Available terbinafine HCl 250 mg tablet TAKE 1 TABLET BY MOUTH EVERY DAY FOR 2 WEEKS 05/01 completed Not Available Not Available Not Available famotidine 20 mg tablet TAKE 1 TABLET BY MOUTH TWICE DAY NEEDED active Not Available Not Available No t Available cephalexin 500 mg capsule TAKE ONE CAPSULE BY MOUTH EVERY EIGHT HOURS FOR TEN DAYS 11/10 completed Not Available Not Available Not Available pantoprazol e 40 mg tablet,rosalba yed release TAKE 1 TABLET BY MOUTH EVERY DAY active Not Available Not Available No t Available clotrimazol e-betametha sone 1 %-0.05 % topical cream APPLY TO AFFECTED AREA TWICE A DAY FOR 28 DAYS 11/10 completed Not Available Not Available Not Available Synthroid 88 mcg tablet TAKE 1 TABLET BY MOUTH EVERY DAY active Not Available Not Available No t Available Synthroid 75 mcg tablet 05/01 completed Not Available Not Available Not Available omeprazole 20 mg capsule,del ayed release TAKE 1 CAPSULE BY MOUTH EVERY DAY active Not Available Not Available No t Available hydrocortis one 2.5 % topical cream active Not Available Not Available Not Available estradiol 0.01% (0.1 mg/gram) vaginal cream PLEASE SEE ATTACHED FOR DETAILED DIRECTION S active Not Available Not Available No t Available hydroxyzine HCl 10 mg tablet TAKE 1 TABLET BY MOUTH EVERY DAY active Not Available Not Available No t Available fluticasone propionate 50 mcg/actuati on nasal spray,suspe nsion TAKE 2 PUFFS IN EACH NOSTRIL ONCE A DAY 05/01 completed Not Available Not Available Not Available nitrofurant oin monohydrate /macrocryst als 100 mg capsule TAKE 1 CAPSULE (100 MG TOTAL) BY MOUTH IN THE MORNING AND BEFORE BEDTIME FOR 7 DAYS 11/10 completed Not Available Not Available Not Available BinaxNOW COVID-19 Ag Self Test kit TAKE DIRECTED 05/01 completed Not Available Not Available Not Available Paxlovid 150 mg-100 mg tablets in a dose pack (Moderate Renal Dose) TAKE 1 TABLET BY MOUTH TWICE A DAY 05/01 completed Not Available Not Available Not Available Vitals Date Recorded Body height Body mass index (BMI) Body weight Systolic And Diastolic Provider Name and Address Organization Details Last Updated DateTime 09/11/2022 154.94 cm 25.5 kg/m2 61225.97 g 120/80 mm[Hg] [facility] 09/11/2022 13:20:01 Date Recorded Body height Body weight Body mass index (BMI) Systolic And Diastolic Provider Name and Address Organization Details Last Updated DateTime 02/20/2022 154.94 cm 29459.34 g 26.3 kg/m2 130/75 mm[Hg] [facility] 02/20/2022 13:53:31 Date Recorded Body height Body mass index (BMI) Body weight Systolic And Diastolic Provider Name and Address Organization Details Last Updated DateTime 05/01/2022 154.94 cm 25.7 kg/m2 97089.56 g 118/82 mm[Hg] Marguerite Ceballos [place] - [facility] 05/01/2022 13:04:00 Social History Question Answer Notes LastModified by Organizat ion Details LastModified Time Tobacco Smoking Status Never Smoker Marisa Caldwell MICHA ad[facility] - [facility] 02/20/2022 13:44:52 Do You Have An Advance Directive? No [email or web address] Information not available 02/20/2022 Which Of Your Hands Is Dominant? Right [email or web address] Information not available 02/20/2022 Auto Related Injury? No Information not available 02/20/2022 Work Related Injury No [email or web address] Information not available 02/20/2022 If Injured Is Litigation Ongoing? No Information not available 02/20/2022 What Was The Date Of Your Most Recent Tobacco Screening? 11/10/2024 Information not available 11/10/2024 Sex: Unknown Functional Status Question Answer Note LastModified by Organization D etails LastModified Time Do you or have you ever used any other forms of tobacco or nicotine? No Information not available 11/10/2024 What is your level of alcohol consumption? Moderate [email or web address] Information not available 02/20/2022 Are you currently employed? No [email or web address] Information not available 02/20/2022 Are you able to care for yourself independently? Yes [email or web address] Information not available 02/20/2022 Mental Status None recorded. Family History Relationship Description Onset Age of this Age Resolved Age Notes LastModified by Organization Details LastModified Time Father No current problems or disability [email or web address] Not available 11/10 14:40:26 Mother No current problems or disability [email or web address] Not available 11/10 14:40:26 Medical History Condition Response Reflux/GERD Y High Cholesterol Y Gynecological HistoryNo gynecological history recorded. Obstetrics History GPAL:G 0 P 0 0 0 0 Past Encounters Encounter ID Performer Location Encounter Start Date Encounter Closed Date Diagnosis/Indication Diagnosis SNOMED-CT Code Diagnosis ICD10 Code Diagnosis IMO Codes Diagnosis Note [id number] Marin Aguilar MD [address] [facility] [place] [address] 02/20/2022 13:40:04 02/20/2022 14:17:29 Pain of right elbow joint [id number] 7330864 M25.521 Right late ral elbow tendinopathy 8158632605 06283 M77.11 [id number] Judie Mccoy PA-C [address] [address] 05/01/2022 12:38:30 05/01/2022 13:27:32 Right lateral elbow tendinopathy 0148461307 64065 M77.11 [id number] Marin Aguilar MD [address] [address] 09/11/2022 13:06:41 09/11/2022 14:10:44 Pain of right shoulder joint 9268739849 9708783 M25.511 Body mass index 25-29 - overweight 451905805 Z68.25 Tendinitis of right rotator cuff 3286007408 6804245 M67.813 Health Concerns Section Related Observation LastModified by Organization Detai ls LastModified Time None Recorded Concern Status LastModified by Organization Details LastModified Time None Recorded Advance Directives Directive N: Payers Insurance Date Sequence Insurance Name Policy Number Policy Ulloa Covered Member ID Ulloa Member ID Guarantor Name 11/10/2024 1 [employer] - GOLD [employer]US (MEDICARE REPLACEMENT/ ADVANTAGE - HMO) Kathleen Yoselin [id number] Kathleen Yoselin 11/10/2024 1 [employer] (MEDICARE REPLACEMENT/ ADVANTAGE - HMO) Kathleen Torres [id number] Kathleen Wyatt 11/10/2024 1 [place] Kathleen Wyatt [id number] Kathleen Wyatt 11/10/2024 2 [employer] (PPO) [id number] Harish Wyatt [id number] Kathleen Yoselin Notes Date Note Type Note Provider Name and Address Organization Details Recorded Time 02/20/2022 text/html New patientCC: Right elbow painOnset: 4 yearsMRI 01/10/22 @ [facility] Kathleen Wyatt is a 76 yo female who presents in the office today for a new evaluation of her right elbow. Patient states that lateral sided right elbow pain came on about 4 years ago. She states that she first noticed the pain after doing a lot of pruning in her garden, which entailed a lot of gripping and use of elbow. She states that she has had multiple injections with [facility] which did not help her. She states that pain has been worsening over the years. She rates pain a 4/10. She gets the most pain with use and leaning on the elbow. She notes heat and feeling of inflammation constantly. She states that symptoms start in elbow and extend distally. She has good elbow ROM. She states that she goes to the gym often and has been decreasing upper body lifting due to pain. She is not taking anything for pain. Dami Aguilar MD [address] [place], [address], [facility] 02/20/2022 14:16:13 05/01/2022 text/html Recheck: Right elbow painOnset: 4+ yearsKathleen Wyatt presents in the office today for a re-evaluation of her right elbow. Patient states her right elbow is not doing too bad. She has some discomfort when she extends her arm. She is currently in PT and states it is going well. She is also very active and goes to the gym regularly to work on strengthening her elbow. She wants to discuss if she would be a good candidate for PRP therapy. She would also like to know if her elbow will heal completely. She rates her pain level 4/10 with use and 0/10 while at rest. She denies taking any medications for pain. Judie Mccoy PA-C [address] [place], [address], [facility] 05/01/2022 13:25:27 09/11/2022 text/html OPNI RIGHT shoulderOnset: 1-2 mo Kathleen is a 77 year old female who presents today for evaluation of the right shoulder. Patient states that she had right shoulder problems about 4-5 years ago and was sent to physical therapy which helped. She had re occurrence of pain about 2 mo ago. She is localizing pain to the anterior shoulder which she rates 7/10. She has pain with reaching behind and applying pressure, like in a side plank exercise. She is not taking anything for pain. Dami Aguilar MD [address] [place], [address], [facility] - [facility] 09/11/2022 14:09:12 OBGyn Episode No OBEpisode recorded.
--- OUTSIDE RECORDS SUMMARY | 2025-07-01 11:17 | XMS_ITS | Data Portability ---
Author Organization [facility] [place] Chrissy [email or web address]_CCMOB [address] Address [address] [place] [address] Care Team Providers Care Warp Doffer Name Role Phone ZULEYMA POSADA Primary Care Provider [phone] ZULEYMA POSADA Referring Provider Assessment Encounter Date Assessment Date Assessment LastModified by Organization Details LastModified Time 10/23/2021 10/23/2021 I tried to reassure her that the findings on her CT of the temporal bone are likely benign. Even if there was a small aneurysm in the left cavernous sinus it is asymptomatic, but at this juncture (especially with her signs of anxiety), I would not focus further on the CT findings. I indicated that her exam and history strongly suggest that her severe neck muscle tightness and stiffness in the neck is the main problem. She has clear signs of bilateral occipital neuralgia and I recommended a multifaceted treatment approach for occipital neuralgia as summarized below. If her symptoms or not improving over the next 2 months she can call and we will arrange for physical therapy for the neck and shoulders, consider occipital nerve blocks and ultimately may even need Botox. However I really want her to start icing over the occiput at this time to help calm down the inflamed occipital nerves. Down the road we may need additional imaging of the cervical spine. Cautioned about aggressive chiropractic manipulations of the neck was given due to the potential risk of stroke. Encouraged her to complete her ENT follow-ups. No additional brain imaging or vascular imaging is indicated at this time. We spent 45 minutes [id number], additional 5 minutes after reviewing some of her prior evaluations and treatments and 5 minutes additional documenting her history and examination for total of 55 minutes This document was created using voice recognition software. Inadvertent typographical errors, word omissions or substitutions may exist. Occasionally, this may alter the intended meaning of the document. Although some proofreading was performed, these errors may still go undetected and make it into the sign document. Not available 10/23/2021 11:26:27 04/03/2023 04/03/2023 I indicated that her symptoms may all be coming from her tight cervical paraspinal muscles and occipital neuralgia. However, given the MRI brain imaging findings at the mid to cervical spine I am going to arrange for MRI of the cervical spine to look for a large herniated disc. Otherwise I want her to proceed with a multifaceted treatment approach for occipital neuralgia as summarized below. We will be back to review the results of the MRI. We spent 35 minutes [id number], additional 5 minutes after reviewing some of her prior evaluations and treatments and 5 minutes additional documenting her history and examination for total of 45 minutes This document was created using voice recognition software. Inadvertent typographical errors, word omissions or substitutions may exist. Occasionally, this may alter the intended meaning of the document. Although some proofreading was performed, these errors may still go undetected and make it into the sign document. Not available 04/03/2023 16:24:12 04/23/2023 04/23/2023 I discussed a multifaceted treatment approach for her neck muscle tightness and headaches as summarized below. I reviewed her MRI with her and I indicated that her cervical facet arthropathy is likely part of the problem contributing to her neck stiffness and discomfort and then contributing to the muscle tightness. Encouraged her to continue isometric core muscle strengthening such as planking exercises in addition to her Pilates. She would benefit from doing water aerobics and swimming. Although being active with things like Judi are good, some maneuvers may be a little too aggressive and cause increased discomfort. We spent 25 minutes [id number], additional 5 minutes after reviewing some of her prior evaluations and treatments and 5 minutes additional documenting her history and examination for total of 35 minutes This document was created using voice recognition software. Inadvertent typographical errors, word omissions or substitutions may exist. Occasionally, this may alter the intended meaning of the document. Although some proofreading was performed, these errors may still go undetected and make it into the sign document. Not available 04/23/2023 16:31:25 Plan of Treatment Reminders Order Date Submit Date Provider Last Modified By Organization Details Last Modified Time Details Appointments None recorded. Lab None recorded. Referral None recorded. Procedures None recorded. Surgeries None recorded. Imaging MRI, cervical spine, w/o contrast - Please call patient to schedule. Fax results to [phone]. If you have any questions, please contact Michelle at , ext [phone] Thank you 2022 023 [facility], [address], [place], [address], 13:10:42 Medication Orders None recorded. Patient TargetsNo targets recorded. Patient Instructions Encounter Date Encounter Id Patient Instructions Last Modified By Organization Details Last Modified Time 04/03/2023 [id number] I have indicated that reducing tightness of the cervical paraspinal and upper trapezius muscles and improving cervical range of motion are important in improving neck and headache pains. Neck muscle tightness is producing irritability of the occipital (and perhaps other) nerves and triggering the headaches. Icing over the occipital notches p.r.n. headaches for 15 minutes, and on a scheduled basis 3-4 times over the next 3 days is recommended. In between the icing, warmth over the muscles can help to relax the muscles. Periodic massages and cervical traction may also be beneficial. Daily range of motion and stretching exercises for the neck and shoulders. The patient is instructed to avoid prolonged stationary neck positions during the day. No using a computer, other hand-held device, or sitting in a stationary position such as reading without performing head rolls, shoulder shrugs, neck and shoulder stretches every 15 minutes. Avoid prolonged neck tilt or rotation, especially while sleeping. Sleeping on the stomach with the neck rotated may be especially problematic, or on the side with the neck tilted too much. Increased daily aerobic exercises. Physical therapy for the neck and shoulders, trigger point and other injection therapies, and Botox may be options to consider in the future if symptoms are not improving. Not available 04/03/2023 15:07:12 04/23/2023 [id number] I have indicated that reducing tightness of the cervical paraspinal and upper trapezius muscles and improving cervical range of motion are important in improving neck and headache pains. Neck muscle tightness is producing irritability of the occipital (and perhaps other) nerves and triggering the headaches. Icing over the occipital notches p.r.n. headaches for 15 minutes, and on a scheduled basis 3-4 times over the next 3 days is recommended. In between the icing, warmth over the muscles can help to relax the muscles. Periodic massages and cervical traction may also be beneficial. Daily range of motion and stretching exercises for the neck and shoulders. The patient is instructed to avoid prolonged stationary neck positions during the day. No using a computer, other hand-held device, or sitting in a stationary position such as reading without performing head rolls, shoulder shrugs, neck and shoulder stretches every 15 minutes. Avoid prolonged neck tilt or rotation, especially while sleeping. Sleeping on the stomach with the neck rotated may be especially problematic, or on the side with the neck tilted too much. Increased daily aerobic exercises. Physical therapy for the neck and shoulders, trigger point and other injection therapies, and Botox may be options to consider in the future if symptoms are not improving. Not available 04/23/2023 16:31:29 Reason for Referral None Reported. Results Created Date Observation Date Name Description Value Unit Range Abnormal Flag Note LastModifiedBy Organization Detail LastModifiedTime 10/24/19 22 MRI, brain , w/o contr ast No observ ation record ed. [email or web address] Not Available 2021 11:20:50 04/15/20 23 04/15/2023 MRI, cervi maurisio spine , w/o contr ast No observ ation record ed. [email or web address] [facility] [address] [place], [address], 05/03/2023 13:33:29 Result Notes Documentation Provider Name and Address Organization Details Recorded Time Mri, Cervical Spine, W/o Contrast : MRI of the cervical spine performed on April 15, 2023 shows mild multilevel cervical spondylosis that is most notable at C4-5. No severe foraminal or central canal stenosis is noted but there is a minimal grade 1 anterolisthesis of C4 on 5. Linda Monique [place], [place] - [place] 05/03/2023 13:33:29 Procedures Surgical History Date Name Laterality Status Provider Name and Address Organization Details Recorded Time Gallbladder Surgery completed Not Available Diannemn 10/23/2021 10:11:55 Imaging Results None recorded. Procedure Notes None recorded. Medical Equipment None Reported. Allergies Allergen ID Allergen Name Allergen Category Reaction Reaction Severity Criticality Documentation Date Start Date Code Code System Note Provider Name and Address Organization Details Recorded Time 736536 Cipro medicatio n Not available Not available Not available 10/23/2021 13416 3 RxNorm Mario Ta [facility] 2 10:20:23 724043 Product containin g penicilli n (product) medicatio n Not available Not available Not available 10/23/2021 30312 [facility] Mario [facility] 2 10:20:28 676259 Substance with sulfonami de structure and antibacte rial mechanism of action (substanc e) medicatio n Not available Not available Not available 10/23/2021 74805 8003 [facility] Mario [facility] 2 10:20:32 Medications Name Sig Start Date Stop Date Status Note LastModified by Organization Details LastModified Time atorvastati n 40 mg tablet TAKE 1 TABLET BY MOUTH EVERYDAY active Not Available Not Available No t Available atorvastati n 80 mg tablet TAKE 1 TABLET BY MOUTH EVERY DAY 10/23 completed Not Available Not Available Not Available doxycycline hyclate 100 mg capsule TAKE 1 CAPSULE BY MOUTH TWICE A DAY FOR 7 DAYS active Not Available Not Available No t Available atorvastati n 20 mg tablet TAKE 1 TABLET BY MOUTH DAILY 10/23 completed Not Available Not Available Not Available bethanechol chloride 10 mg tablet TAKE 1 TABLET BY ORAL ROUTE 3 TIMES EVERY DAY ON AN EMPTY STOMACH, 1 HOUR BEFORE MEALS 10/23 completed Not Available Not Available Not Available fluconazole 150 mg tablet TAKE 1 TABLET BY MOUTH EVERY 72 HOURS FOR 6 DAYS active Not Available Not Available No t Available metoprolol succinate ER 50 mg tablet,exte nded release 24 hr USE DIRECTED FOR CTA 10/23 completed Not Available Not Available Not Available sucralfate 1 gram tablet TAKE 1 TABLET BY ORAL ROUTE 4 TIMES EVERY DAY ON AN EMPTY STOMACH 1 HOUR BEFORE MEALS AND AT BEDTIME active Not Available Not Available No t Available Synthroid 100 mcg tablet TAKE 1 TABLET BY MOUTH EVERY DAY 10/23 completed Not Available Not Available Not Available meclizine 12.5 mg tablet TAKE 1 TABLET BY MOUTH (3 TIMES A DAY) FOR 3 DAY NEEDED FOR DIZZINESS 10/23 completed Not Available Not Available Not Available metronidazo le 500 mg tablet TAKE 1 TABLET BY MOUTH TWICE A DAY FOR 7 DAYS active Not Available Not Available No t Available terbinafine HCl 250 mg tablet TAKE 1 TABLET BY MOUTH EVERY DAY FOR 2 WEEKS active Not Available Not Available No t Available famotidine 20 mg tablet TAKE 1 TABLET BY MOUTH TWICE DAY NEEDED active Not Available Not Available No t Available meclizine 25 mg tablet TAKE 1 TABLET BY MOUTH 3 TIMES A DAY IF NEEDED FOR DIZZINESS FOR UP TO 10 DAYS. active Not Available Not Available No t Available econazole nitrate 1 % topical cream APPLY SPARINGLY TWICE A DAY TO ALL AFFECTED RASH AREAS.*PA IN PROCESS 10/23 completed Not Available Not Available Not Available cephalexin 500 mg capsule TAKE ONE CAPSULE BY MOUTH EVERY EIGHT HOURS FOR TEN DAYS active Not Available Not Available No t Available pantoprazol e 40 mg tablet,rosalba yed release TAKE 1 TABLET BY MOUTH EVERY DAY active Not Available Not Available No t Available clotrimazol e-betametha sone 1 %-0.05 % topical cream APPLY TO AFFECTED AREA TWICE A DAY FOR 28 DAYS active Not Available Not Available No t Available Synthroid 88 mcg tablet TAKE 1 TABLET BY MOUTH EVERY DAY IN THE MORNING active Not Available Not Available No t Available omeprazole 20 mg capsule,del ayed release TAKE 1 CAPSULE BY MOUTH EVERY DAY active Not Available Not Available No t Available hydrocortis one 2.5 % topical cream APPLY THIN COAT TO AFFECTED AREA TWICE A DAY active Not Available Not Available No t Available clindamycin 2 % vaginal cream INSERT 1 APPLICATO RFUL VAGINALLY EVERY DAY AT BEDTIME FOR 7 DAYS active Not Available Not Available No t Available ammonium lactate 12 % topical cream APPLY TO LEGS EVERYDAY AFTER SHOWER active Not Available Not Available No t Available estradiol 0.01% (0.1 mg/gram) vaginal cream INSERT ONE GRAM VAGINALLY EVERY OTHER DAY AT BEDTIME active Not Available Not Available No t Available timolol maleate 0.5 % eye drops INSTILL 1 DROP INTO BOTH EYES NIGHTLY active Not Available Not Available No t Available ketoconazol e 2 % topical cream APPLY TO FEET TWICE A DAY FOR 4 WEEKS active Not Available Not Available No t Available hydroxyzine HCl 10 mg tablet TAKE 1 TABLET BY MOUTH EVERY DAY active Not Available Not Available No t Available doxycycline hyclate 100 mg tablet TAKE 1 TABLET BY MOUTH TWICE A DAY FOR 7 DAYS active Not Available Not Available No t Available loratadine 10 mg tablet TAKE 1 TABLET BY MOUTH EVERY DAY AT BEDTIME active Not Available Not Available No t Available nitrofurant oin monohydrate /macrocryst als 100 mg capsule TAKE 1 CAPSULE BY MOUTH EVERY 12 HOURS FOR 14 DAYS active Not Available Not Available No t Available BinaxNOW COVID-19 Ag Self Test kit USE DIRECTED ON THE BOX active Not Available Not Available No t Available Vitals Date Recorded Body weight Body mass index (BMI) Body height Heart rate Systolic And Diastolic Provider Name and Address Organization Details Last Updated DateTime 10/23/2021 25114.97 g 25.5 kg/m2 154.94 cm 78 /min 155/87 mm[Hg] Mario Ta [facility] 10/23/2021 10:19:52 Date Recorded Body weight Respiratory rate Heart rate Body mass index (BMI) Body height Pain severity - 0-10 verbal numeric rating [Score] - Reported Systolic And Diastolic Provider Name and Address Organization Details Last Updated DateTime 3 22101.9 7 g 18 /min 92 /min 25.5 kg/m2 154.94 cm 0 145/94 mm[Hg] Soha Becker [facility] 3 15:23:40 Date Recorded Body height Body mass index (BMI) Body weight Heart rate Respiratory rate Pain severity - 0-10 verbal numeric rating [Score] - Reported Systolic And Diastolic Provider Name and Address Organization Details Last Updated DateTime 3 154.94 cm 25.5 kg/m2 04944.9 7 g 75 /min 18 /min 0 141/89 mm[Hg] Soha Becker [facility] 3 15:33:06 Social History Question Answer Notes LastModified by Organizat ion Details LastModified Time Tobacco Smoking Status Never Smoker Not Available [employer] 04/23/2023 15:29:05 Do You Have An Advance Directive? No [email or web address] Information not available 10/23/2021 If You Are , What Was Your Level Of Alcohol Consumption Prior To ? Occasional [email or web address] Information not available 10/23/2021 How Many Years Have You Consumed Alcohol? 50 [email or web address] Information not available 10/23/2021 What Is Your Level Of Caffeine Consumption? Moderate [email or web address] Information not available 10/23/2021 What Type Of Diet Are You Following? REGULAR [email or web address] Information not available 10/23/2021 Do You Reside In Or Have You Traveled To An Area Where Ebola Virus Transmission Is Active? No [email or web address] Information not available 04/23/2023 What Is The Highest Grade Or Level Of School You Have Completed Or The Highest Degree You Have Received? [id number] [email or web address] Information not available 10/23/2021 Have You Had A Fever And/or Symptoms Of A Lower Respiratory Illness (cough, Difficulty Breathing, Etc)? No [email or web address] Information not available 10/23/2021 Have You Had Any Of These Symptoms: Chills ,Headache, Fatigue, Muscle Or Body Aches , Sore Throat, New Loss Of Taste Or Smell, Nausea Or Vomiting, Or Diarrhea? No [email or web address] Information not available 10/23/2021 Have You Had A COVID-19 Vaccine In The Last 7 Days? No [email or web address] Information not available 10/23/2021 0) Information Provided By : Patient [email or web address] Information not available 04/23/2023 1a) Does The Patient/Caregiver /Family Report The PATIENT Having Any Of These NEW Symptoms Such As Cough? No [email or web address] Information not available 04/23/2023 1b) Does The Patient/Caregiver /Family Report The PATIENT Having Any Of These NEW Symptoms Such As Diarrhea? No API-27 Information not available 04/23/2023 1c) Does The Patient/Caregiver /Family Report The PATIENT Having Any Of These NEW Symptoms Such As Fever/chills? No [email or web address] Information not available 04/23/2023 1d) Does The Patient/Caregiver /Family Report The PATIENT Having Any Of These NEW Symptoms Such As Nasal Congestion/Runny Nose? No [email or web address] Information not available 04/23/2023 1e) Does The Patient/Caregiver /Family Report The PATIENT Having Any Of These NEW Symptoms Such As Respiratory Distress (acute)? No API-27 Information no t available 04/23/2023 1f) Does The Patient/Caregiver /Family Report The PATIENT Having Any Of These NEW Symptoms Such As Rash? No [email or web address] Information not available 04/23/2023 1g) Does The Patient/Caregiver /Family Report The PATIENT Having Any OTHER NEW Symptoms (list)? If No NEW Symptoms, Enter N o No [email or web address] Information not available 04/23/2023 Have You Ever Been Counseled For Unhealthy Alcohol Use? No [email or web address] Information not available 10/23/2021 How Many Days In The Past Year Have You Consumed 4 Or More Drinks? 0 [email or web address] Information no t available 10/23/2021 How Many Days In The Past Year Have You Consumed 5 Or More Drinks? 0 [email or web address] Information no t available 10/23/2021 Sex: Female Functional Status Question Answer Note LastModified by Organizat ion Details LastModified Time Do you use any illicit or recreational drugs? No [email or web address] Information not available 04/23/2023 Do you or have you ever used any other forms of tobacco or nicotine? No [email or web address] Information not available 10/23/2021 What is your level of alcohol consumption? Occasional [email or web address] Information not available 04/23/2023 Are you currently employed? No [email or web address] Information not available 10/23/2021 What is your exercise level? Moderate [email or web address] Information not available 10/23/2021 Mental Status Question Answer Note LastModified by Organization D etails LastModified Time Do you feel stressed (tense, restless, nervous, or anxious, or unable to sleep at night)? [id number] [email or web address] Information not available 10/23/2021 Family History Relationship Description Onset Age of this Age Resolved Age Notes LastModified by Organization Details LastModified Time Father Heart disease [email or web address] Not available 2021 10:11:54 Brother Heart disease [email or web address] Not available 2021 10:11:54 Medical History No medical history recorded. Gynecological HistoryNo gynecological history recorded. Obstetrics History GPAL:G 0 P 0 0 0 0 Immunizations Vaccine Type Date Status Note Provider Nam e and Address Organization Details Recorded Time COVID-19, mRNA, LNP-S, PF, 100 mcg/0.5mL dose or 50 mcg/0.25mL dose 07/20/2020 completed Soha Becker CMA [place], [place] 04/03/2023 15:39:28 COVID-19, mRNA, LNP-S, PF, 100 mcg/0.5mL dose or 50 mcg/0.25mL dose 08/17/2020 completed Soha Becker CMA null, [facility] 04/03/2023 15:39:28 COVID-19, mRNA, LNP-S, PF, 100 mcg/0.5mL dose or 50 mcg/0.25mL dose 05/14/2021 completed Soha Becker CMA jed, [facility] 04/03/2023 15:39:28 Past Encounters Encounter ID Performer Location Encounter Start Date Encounter Closed Date Diagnosis/Indication Diagnosis SNOMED-CT Code Diagnosis ICD10 Code Diagnosis IMO Codes Diagnosis Note [id number] MD Ines ADAIR_NIKO E_NEURO_S S_JAB [address] [place] [address] 10/23/2021 09:45:24 10/23/2021 11:19:13 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 Her vestibular testing suggested a central mechanism and this suggests that the other mechanisms are less likely. [id number] MD Ines ADAIR_NIKO E_NEURO_S S_JAB [address] [place] [address] 04/03/2023 14:21:24 04/03/2023 15:23:21 Cervico-occipital neuralgia 03538670 M54.81 Chronic neck pain 164859 0916 107 M54.2 Cervicogenic headache 27 3931344 G44.86 Sensory neuropathy 87232 005 G62.9 Dizziness 485327126 R42 This may be related to her occipital neuralgia. 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 Her vestibular testing suggested a central mechanism and this suggests that the other mechanisms are less likely. [id number] JUDD BARNES MD zCLSD_SVP E_NEURO_S S_[facility] [address] [facility] [place] [address] 04/23/2023 15:21:23 04/23/2023 16:36:50 Cervico-occipital neuralgia 75123561 M54.81 Cervicogenic headache 27 3663630 G44.86 Chronic neck pain 428990 1218 107 M54.2 Sensory neuropathy 10964 005 G62.9 Dizziness 966096429 R42 This may be related to her occipital neuralgia. 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 Her vestibular testing suggested a central mechanism and this suggests that the other mechanisms are less likely. Health Concerns Section Related Observation LastModified by Organization Detai ls LastModified Time None Recorded Concern Status LastModified by Organization Details LastModified Time None Recorded Advance Directives Directive N: Payers Insurance Date Sequence Insurance Name Policy Number Policy Ulloa Covered Member ID Ulloa Member ID Guarantor Name 07/23/[address] [facility] (MEDICAID REPLACEMENT - HMO) Kathleen Wyatt [id number] Kathleen Wyatt Notes Date Note Type Note Provider Name and Address Organization Details Recorded Time 10/23/2021 text/html 76-year-old right-handed woman who is accompanied by her . She indicates that on August 17 and on September 05, 2021 she had 2 episodes of dizziness that came on abruptly without clear precipitant and slowly resolved over a day or so. She describes it like a feeling of motion but not a spinning sensation. With both episodes she was taken to the emergency room and found to have elevated blood pressure. This gradually declined spontaneously. With both episodes she was extremely anxious. She ended up monitoring her blood pressure each day and it has been fairly normal when she is at home. She went to ENT and they went through extensive testing including VNG, audiograms, VEP, and electro cochlear testing. 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 MRI of the brain was performed on August 18, 2021 and I personally reviewed this off of the CD. The report is scanned into her medical record. No definite significant abnormalities that might be contributing to her dizziness are identified. She also had a CT of the head performed which was negative. 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 This is reported as potentially a benign asymmetry, but they could not exclude other possibilities. She was referred to Dr. Morris Ahumada for further evaluation of the dehiscence issue. She has not yet seen him.She notes that when she got the dizziness it came on abruptly and was not associated with any hearing change, alleviating or exacerbating factors, or weakness. However she did have some blurred vision and had may have had a headache. In retrospect she notes that she always has a stiff neck and has had frequent headaches. The back of her head is especially sensitive. She has been getting chiropractic manipulations, she does Pilates and tries to do stretches and exercises frequently. JUDD BARNES MD [address] [facility],[address], [place], [address], [facility] [place] 10/23/2021 11:27:36 04/03/2023 text/html She was last seen by me in October 2021 and returns today in follow-up with her . She notes that over this last year she has been having frequent headaches. She is laying down in bed. This is occurring at least 2-3 times per week. When she gets a headache her tinnitus seems to increase in intensity, but rotating her head to one side or the other seems to change the intensity or amount of tinnitus that she hears. She has been taking Tylenol to help with the next headaches. She has had extensive recent testing that she brings and is concerned about some of the reports.Her ENT evaluation shows a relatively stable pattern since September 2021 with sensorineural hearing loss bilaterally. 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 No other abnormalities within the AICD or cerebellopontine angle. On my review of the image I see at the very bottom of the sagittal imaging that there looks like there could be a large herniated disc in the mid cervical spine region. This is not well seen on the imaging. JUDD BARNES MD [address], [place], [address], [facility] [place] 04/03/2023 16:24:28 04/23/2023 text/html She returns today in follow-up with her . She notes that when she lays on her back with her head on the pillow it bothers her enough that she has to rotate her head to the side. She notes that she is doing Pilates exercises 3 times per week and it really has helped with her back pain. Her neck pain has not yet resolved. She has been recently diagnosed with early glaucoma and is now getting treatment. He is also receiving Claritin for 4 weeks. MRI of the cervical spine performed on April 15, 2023 shows mild multilevel cervical spondylosis that is most notable at C4-5. No severe foraminal or central canal stenosis is noted but there is a minimal grade 1 anterolisthesis of C4 on 5. We are loading the images in the PACS system. 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 No other abnormalities within the AICD or cerebellopontine angle. On my review of the image I see at the very bottom of the sagittal imaging that there looks like there could be a large herniated disc in the mid cervical spine region. This is not well seen on the imaging. JUDD BARNES MD [address], [place], [address], [facility] [place] 04/23/2023 16:31:45 OBGyn Episode No OBEpisode recorded.
--- OUTSIDE RECORDS SUMMARY | 2025-07-01 11:17 | XMS_ITS | Clinical Summary ---
Author Organization [facility] Address [address] [place] [address] Care Team Providers Care Barley Steeper Name Role Phone Tylor Marmolejo MD Primary [...] Has been followed by pain management the [facility]. Assessment & Plan (12/14/2024 9:39 AM EDT): Currently being followed and managed by the [facility] pain management. 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 She has seen a real estate photographer. She had a sigmoidoscopy. She may need [...] But this needs further evaluation by the real estate photographer. We discussed this at length here today. Memory impairment 03/14/2021 Resolved Problems Problem Noted Date Diagnosed Date Resolved Date Borderline high blood pressure 12/14/2024 12/14/2024 Paresis of single lower extremity 11/15/2024 12/14/2024 Encounters Date Type Department Care Team Description 06/29/2025 Refill [facility] at [address] [place] [address] Tylor Marmolejo MD Mixed hyperlipidemia (Primary Dx) 06/17/2025 Telephone [facility] at [address] [place] [phone] Tylor Marmolejo MD 05/16/2025 11:45 AM EST Lab [facility] [address] [place] [address] [phone] Chronic kidney disease, stage 3 unspecified (Primary Dx) 05/13/2025 9:30 AM EST Office Visit [facility] at [address] [place] [address] Levy Marr PA-C Impingement syndrome involving patellar fat pad of right knee (Primary Dx); Chronic pain of right knee 05/13/2025 7:45 AM EST Lab [facility] [address] [place] [address] [phone] Mixed hyperlipidemia; Increased frequency of urination 05/13/2025 Telephone [facility] at [address] [place] [phone] Tylor Marmolejo MD Med Refill 05/13/2025 Results Follow-Up [facility] at [address] [place] [phone] Tylor Marmolejo MD Comprehensive Metabolic Panel (CMP), Lipid Panel, Urinalysis with microscopic and reflex culture, Additional followed-up results: 2 04/29/2025 Telephone [facility] at [address] [place] [address] Tylor Marmolejo MD New Referral Request 04/24/2025 Results Follow-Up [facility] [address] [place] [phone] Ramesh Davies APRN Urine culture 04/22/2025 10:40 AM EDT Office Visit [facility] [address] [place] [phone] Zandra Fung APRN Urinary tract infection without hematuria, site unspecified (Primary Dx); Vaginal discharge 04/21/2025 3:30 PM EDT Evaluation [facility] [address] [place] [phone] Ramakrishna Wall, PT Sprain of medial collateral ligament of right knee, initial encounter (Primary Dx) 04/18/2025 11:30 AM EDT Treatment [facility] [address] [address] Ramakrishna Wall, PT Sprain of medial collateral ligament of right knee, initial encounter (Primary Dx) 04/13/2025 3:00 PM EDT Treatment [facility] [address] [address] Ton Salinas, HIGH SCHOOL ADMISSIONS REPRESENTATIVE Sprain of medial collateral ligament of right knee, initial encounter (Primary Dx) 04/11/2025 9:30 AM EDT Treatment [facility] [address] [address] Shree Baptiste, HIGH SCHOOL ADMISSIONS REPRESENTATIVE Sprain of medial collateral ligament of right knee, initial encounter (Primary Dx) 04/08/2025 8:30 AM EDT Office Visit [facility] at [address] [address] Tylor Marmolejo MD Medicare annual wellness visit, subsequent (Primary Dx); Overweight (BMI 25.0-29.9); Sacroiliac joint pain; Valvular heart disease; Essential hypertension; Bilateral carotid artery disease, unspecified type; Gastroesophageal reflux disease, unspecified whether esophagitis present; Acquired hypothyroidism; Mixed hyperlipidemia; Elevated LFTs; Increased frequency of urination 04/08/2025 Abstract [facility] at [address] [phone] Tylor Marmolejo MD 04/06/2025 11:30 AM EDT Treatment [facility] [address] [address] Regino Price, PT Sprain of medial collateral ligament of right knee, initial encounter (Primary Dx) 04/04/2025 12:30 PM EDT Treatment [facility] [address] [phone] Regino Price, PT Sprain of medial collateral [...] more drinks on one occasion? Never 04/08/2025 [facility] Housing Answer Date Recorded Living Situation Not on file 02/20/2023 Housing Problems Not on file 02/20/2023 [facility] Safety Answer Date Recorded Threatened Not [...] Description 10/11/2025 1:00 PM EDT Office Visit [facility] at [facility] [address] [facility] [address] [place] [address] Tylor Marmolejo MD [address] [facility] [address] [place] [address] Health Maintenance Due Date Last [...] EST Chronic kidney disease, stage 3 unspecified [place] ARTHROCENTESIS ASPIR&/INJ MAJOR JT/BURSA W/O US Routine [...] Urinary tract infection without hematuria, site unspecified from Last 3 Months Results * (ABNORMAL) Urinalysis with reflex microscopic (No Culture) (05/16/2025 11:47 AM EST) Color, Urine Light Yellow Colorless, Dark Yellow, Light Yellow, Yellow 05/16/2025 2:11 PM EST [facility] [place] Clarity, Urine Clear Clear 05/16/2025 2:11 PM EST [facility] [place] Leukocyte Esterase, Urine Trace Negative 05/16/2025 2:11 PM EST [facility] [place] Nitrite, Urine Negative Negative 05/16/2025 2:11 PM EST [facility] [place] Urobilinogen, Urine Normal Normal 05/16/2025 2:11 PM EST [facility] [place] Protein, Qual, Urine Negative Negative 05/16/2025 2:11 PM EST [facility] pH, Urine 5.5 5.0 - 7.5 05/16/2025 2:11 PM EST [facility] [place] Blood, Urine Negative Negative, Trace 05/16/2025 2:11 PM EST [facility] [place] Specific [place], Urine <1.005(L) 1.005 - 1.030 05/16/2025 2:11 PM EST [facility] [place] Ketones, Urine Negative Negative 05/16/2025 2:11 PM EST [facility] [place] Bilirubin, Urine Negative Negative 05/16/2025 2:11 PM EST [facility] Glucose, Qual, Urine Normal Negative 05/16/2025 2:11 PM EST [facility] Urine Urine specimen obtained by clean catch procedure / Unknown Non-blood Collection / Unknown 05/16/2025 11:47 AM EST 05/16/2025 11:47 AM EST Devon Mccray MD LAB URINE ORDERABLES Final Resul t [facility] [address] [place] [address], * Basic Metabolic Panel (05/16/2025 11:45 AM EST) [facility] Sodium 138 136 - 145 mmol/L 05/16/2025 2:57 PM EST [facility] Potassium 4.2 3.5 - 5.1 mmol/L 05/16/2025 2:57 PM [facility] Chloride 104 98 - 107 mmol/L 05/16/2025 2:57 PM EST [facility] Carbon Dioxide 24.2 22.0 - 29.0 mmol/L 05/16/2025 2:57 PM [facility] Anion Gap 10 3 - 20 mmol/L 05/16/2025 2:57 PM EST [facility] Glucose 89 70 - 99 mg/dL 05/16/2025 2:57 PM [facility] BUN 20.9 6.0 - 26.0 mg/dL 05/16/2025 2:57 PM [facility] Creatinine 0.88 0.70 - 1.20 mg/dL 05/16/2025 2:57 PM [facility] BUN/Creatinine Ratio 23.8 05/16/2025 2:57 PM [facility] Calcium 9.4 8.8 - 10.2 mg/dL 05/16/2025 2:57 PM [facility] Osmolality Calc 269 mosm/kg 2:57 PM [facility] eGFR 66.9 >=60.0 mL/min/{1. 73_m2} 05/16/2025 2:57 PM [facility] Comment: GFR calculated based on CKD-EPI [...] MD LAB BLOOD ORDERABLES Final Resul t [facility] [address] [address], * [place] ARTHROCENTESIS ASPIR&/INJ MAJOR JT/BURSA W/O US (05/13/2025 10:15 AM EST) Narrative Levy Marr PA-C - 05/13/2025 10:15 AM EST Levy Marr PA-C 05/13/2025 10:52 AM Large joint Injection or Arthrocentesis: R knee Date/Time: 05/13/2025 10:15 AM Performed by: Levy Marr PA-C Authorized by: Levy Marr PA-C Procedure discussed: discussed risks, benefits, [...] 1 <=5 /HPF 05/13/2025 11:38 AM EST [facility] WBC, Urine 1 <=5 /HPF 05/13/2025 11:38 AM EST [facility] Bacteria, Urine None Seen None Seen /HPF 05/13/2025 11:38 AM EST [facility] Urine Urine specimen obtained by clean catch procedure / Unknown Non-blood Collection / Unknown 05/13/2025 7:47 AM EST 05/13/2025 7:47 AM EST us Tylor Marmolejo MD LAB URINE ORDERABLES [facility] al Result [facility] [address] [place] [address], [place] [phone] * (ABNORMAL) Urinalysis with microscopic and reflex culture (05/13/2025 7:47 AM EST) Color, Urine Light Yellow Colorless, Dark Yellow, Light Yellow, Yellow 05/13/2025 11:38 AM EST [facility] Clarity, Urine Clear Clear 05/13/2025 11:38 AM [facility] Leukocyte Esterase, Urine 2+(A) Negative 05/13/2025 11:38 AM [facility] Nitrite, Urine Negative Negative 05/13/2025 11:38 AM EST [facility] Urobilinogen, Urine Normal Normal 05/13/2025 11:38 AM EST [facility] Protein, Qual, Urine Negative Negative 05/13/2025 11:38 AM [facility] pH, Urine 7.5 5.0 - 7.5 05/13/2025 11:38 AM EST [facility] Blood, Urine Negative Negative, Trace 05/13/2025 11:38 AM [facility] Specific [place], Urine 1.008 1.005 - 1.030 05/13/2025 11:38 AM EST [facility] Ketones, Urine Negative Negative 05/13/2025 11:38 AM EST [facility] Bilirubin, Urine Negative Negative 05/13/2025 11:38 AM EST [facility] Glucose, Qual, Urine Normal Negative 05/13/2025 11:38 AM EST [facility] Urine Urine specimen obtained by clean catch procedure / Unknown Non-blood Collection / Unknown 05/13/2025 7:47 AM EST 05/13/2025 7:47 AM EST Tylor Marmolejo MD LAB URINE ORDERABLES Fin al Result Performing Organization Address City/[facility]/ZIP Co de Phone Number [facility] [address] [place] [address], [place] [phone] * Urine culture (05/13/2025 7:47 AM EST) Only the most recent of2 resultswithin the time period is included. Pathologist [facility] Urine Culture Mixed Urogenital Emerita; probable contaminants, suggest recollection 05/15/2025 12:35 AM EST [facility] Urine Urine specimen obtained by clean catch procedure / Unknown Non-blood Collection / Unknown 05/13/2025 7:47 AM EST 05/13/2025 11:38 AM EST Tylor Marmolejo MD LAB MICROBIOLOGY - GENER AL ORDERABLES Final Result Performing Organization Address [facility] Co de Phone Number [facility] [address] [place] [address], [place] [phone] * Lipid Panel (05/13/2025 7:42 AM EST) Triglycerides 88 <=150 mg/dL 05/13/2025 1:29 PM EST [facility] Cholesterol, Total 131.00 0.00 - 200.00 mg/dL 05/13/2025 1:29 PM EST [facility] HDL Cholesterol 42.80 >=40.00 mg/dL 05/13/2025 1:29 PM EST [facility] LDL Cholesterol, Calc 70.6 <=130.0 mg/dL 05/13/2025 1:29 PM EST [facility] Comment: Reference range <130 Normal 130-150 Borderline >159 High Risk The LDL result is calculated using the Friedewald equation Chol/HDL Ratio 3.1 05/13/2025 1:29 PM EST [facility] LDL/HDL Ratio 1.6 05/13/2025 1:29 PM EST [facility] VLDL, Calculated 18 mg/dL 05/13/20 1:29 PM EST [facility] Non-HDL Cholesterol 88 mg/dL 05/13/2025 1:29 PM EST [facility] Blood Venous blood specimen / Unknown Venipuncture / Unknown 05/13/2025 7:42 AM EST 05/13/2025 7:42 AM EST Tylor Marmolejo MD LAB BLOOD ORDERABLES Fin al Result [facility] [address] [place] [address], * Comprehensive Metabolic Panel (CMP) (05/13/2025 7:42 AM EST) Sodium 141 136 - 145 mmol/L 05/13/2025 1:29 PM EST [facility] Potassium 4.9 3.5 - 5.1 mmol/L 05/13/2025 1:29 PM EST [facility] Chloride 104 98 - 107 mmol/L 05/13/2025 1:29 PM EST [facility] Carbon Dioxide 27.4 22.0 - 29.0 mmol/L 05/13/2025 1:29 PM EST [facility] Anion Gap 10 3 - 20 mmol/L 05/13/2025 1:29 PM EST [facility] BUN 12.3 6.0 - 26.0 mg/dL 05/13/2025 1:29 PM EST [facility] Creatinine 0.92 0.70 - 1.20 mg/dL 05/13/2025 1:29 PM EST [facility] BUN/Creatinine Ratio 13.4 05/13/2025 1:29 PM EST [facility] Glucose 88 70 - 99 mg/dL 05/13/2025 1:29 PM EST [facility] Calcium 9.7 8.8 - 10.2 mg/dL 05/13/2025 1:29 PM EST [facility] AST 25 0 - 32 U/L 05/13/2025 1:29 PM EST [facility] ALT 27 0 - 33 U/L 05/13/2025 1:29 PM EST [facility] Alkaline Phosphatase 97 35 - 105 U/L 05/13/2025 1:29 PM [facility] Protein, Total 7.4 6.6 - 8.7 g/dL 05/13/2025 1:29 PM EST [facility] Albumin 4.27 3.50 - 5.20 g/dL 05/13/2025 1:29 PM [facility] Globulin 3.1 g/dL 05/13/2025 1:29 PM [facility] A/G Ratio 1.4 05/13/2025 1:29 PM [facility] Bilirubin, Total 0.36 0.00 - 1.20 mg/dL 05/13/2025 1:29 PM [facility] Osmolality Calc 272 mosm/kg 1:29 PM [facility] eGFR 63.5 >=60.0 mL/min/{1. 73_m2} 05/13/2025 1:29 PM EST [facility] Comment: GFR calculated based on CKD-EPI 2020 [...] 7:42 AM EST 05/13/2025 7:42 AM EST us Tylor Marmolejo MD LAB BLOOD ORDERABLES Fin al Result [facility] [place] [address] [place] [address], * (ABNORMAL) POC Urinalysis dipstick, manually resulted (04/22/2025 10:20 AM EDT) Color, UA Light Yellow Clarity, UA Clear POC Urine Glucose Negative Negative, =100 mg/dL Bilirubin, UA POC Negative Negative Ketones, UA POC Negative Negative, Very large Specific [place], UA 1.010 1.010, 1.015, 1.020, 1.025, >=1.030 [...] CARE TEST ENTER/E DIT ORDERABLES Final Result from Last 3 Months Additional Health Concerns Infection Onset Date Last Indicated Gastrointestinal Rule-Out 08/27/20242024 Insurance MEDICARE [facility] [place] [id number] Care Teams Barley Steeper Relationship Specialty Start Date End Date Tylor Marmolejo MD PCP - General Family Medicine 09/06/24
--- OUTSIDE RECORDS SUMMARY | 2025-07-01 11:18 | XMS_ITS | Encounter Summary ---
Author Organization [facility] Address [address] [place] [address] Care Team Providers Care Assistance Representative Name Role Phone Tylor Marmolejo MD Primary Care Provider + Source Comments Please be aware that You and/or your organization are solely responsible for the use, security, privacy, and any decisions made with any information you receive from [employer] Encounter Details Date Type Department Care Team (Late st Contact Info) Description 05/13/2025 Results Follow-Up [facility] Primary Care at [facility] [address] [facility] [address] [place] [address] Tylor M[facility]olejo MD [facility] [address] [place] [address] Comprehensive Metabolic Panel (CMP), Lipid [...] more drinks on one occasion? Never 04/08/2025 [facility] Housing Answer Date Recorded Living Situation Not on file 02/20/2023 Housing Problems Not on file 02/20/2023 [facility] Safety Answer Date Recorded Threatened Not [...] Description 10/11/2025 1:00 PM EDT Office Visit [facility] Care at [facility] [address] [facility] [address] [place] [address] Tylor Marmolejo MD 1 [facility] [address] [place] [address] documented as of this encounter Visit Diagnoses Not on filedocumented in this encounter Additional Health Concerns Infection Onset Date Last Indicated Resolved Time Gastrointestinal Rule-Out 08/27/2024 08/27/2024 Assessment Noted Time A fall risk assessment has been complete d for the patient 04/08/2025 8:38 AM EDT documented as of this encounter Care Teams Assistance Representative Relationship Specialty Start Date End Date Tylor Marmolejo MD PCP - General Family Medicine 09/06/24 documented as of this encounter
--- OUTSIDE RECORDS SUMMARY | 2025-07-01 11:18 | XMS_ITS | Clinical Summary ---
Author Organization [facility] Address [address] [place] [address] Care Team Providers Care Gas Pumping Station Helper Name Role Phone Elsewhere, Pcp Primary Care Provider Unavailabl e Source Comments Patient records contain information from all sites at [facility]. For routine questions regarding patient records, call [phone] during business hours, M-F 8:00 AM - 5:00 PM Central Time. Record requests for emergency care only can be directed to [phone] at any time.[facility] Allergies Active Allergy Reactions Criticality Noted Date Comments Antihistamines - Alkylamine Other (see comments) 02/20/2025 Due to glaucoma. Sulfa (Sulfonamide Antibiotics) GI bleeding 08/25/2024 Medications * This document contains information received from the source organization and may not represent a complete record from that organization. Synthroid 88 mcg tablet Take 1 tablet by mouth daily before morning meal. Active rifAXIMin (Xifaxan) 550 mg tabletIndication s:Pain Generalized Abdominal,Gastro -Esophageal Reflux Disease With Esophagitis Without Bleeding Take 1 tablet (550 mg total) by mouth 2 (two) times a day. 28 tablet 5 Active esomeprazole (NexIUM) [address] capsule Take 1 capsule (20 mg total) by mouth 2 (two) times a day before morning and evening meals. 60 capsule 3 5 Active rifAXIMin (Xifaxan) 550 mg tabletIndication s:Overgrowth Bacterial Small Bowel Take 1 tablet (550 mg total) by mouth 2 (two) times a day for 14 days. 28 tablet 5 06/13/20 25 neomycin (Mycifradin) 500 mg tabletIndication s:Overgrowth Bacterial Small Bowel Take 1 tablet (500 mg total) by mouth 2 (two) times a day for 14 days. 28 tablet 06/13/20 25 Hospital, Clinic, or Other Facility Administered Medication [...] Communication Division of Gastroenterology and Hepatology in [address] [phone] Danielle Brunson P.A.-C., M.S. 06/28/2025 10:43 AM EST - 06/28/2025 11:59 PM EST Hospital Encounter Department of Radiology, [facility] in [address] [address] Duke Fan M.D. Impairment Cognitive Mild Discharge Disposition: Home or Self Care 06/08/2025 1:00 PM EST Clinical Support Department of Allergy Medicine in [place] [address] [place] [address] Qamar Spangler M.D. Hronek, Amanda P, R.N. Allergy Penicillin Antibiotic Personal History; Adverse Effect Of Penicillins Initial 06/08/2025 12:00 PM EST Clinical Support Department of Allergy Medicine in [place] [address] [place] [address] Qamar Spangler M.D. Hronek, Amanda P, RZander 06/08/2025 9:00 AM EST Office Visit Department of Allergy Medicine in [address] [address] Carrie Thomas APRN Adverse Effect Of Penicillins Initial (Primary Dx); Hives 06/07/2025 Clinical Communication Department of Neurology in [address] [address] Duke Fan M.D. 06/03/2025 Orders Only Department of Neurology in [address] [address] Duke Fan M.D. Impairment Cognitive Mild (Primary Dx) 06/03/2025 Clinical Communication Department of Neurology in [address] [address] Duke Fan M.D. 05/31/2025 2:00 PM EST Office Visit Division of Gastroenterology and Hepatology in [address] [address] Danielle Brunson P.A.-C., M.S. Overgrowth Bacterial Small Bowel (Primary Dx) 05/31/2025 11:50 AM EST Lab Department of Laboratory Medicine and Pathology, [facility] in [address] [address] Marcia Overton M.D. Impairment Cognitive Mild 05/31/2025 10:00 AM EST Comprehensive Visit Department of Neurology in [address] [address] Marcia Overton M.D. Impairment Cognitive Mild (Primary Dx); Reaction Drug Adverse Initial 05/30/2025 Clinical Communication Division of Gastroenterology and Hepatology in [place] [phone] Tylor Urbano M.D. 05/30/2025 Clinical Communication Division of Gastroenterology and Hepatology in [address] [address] Tylor Urbano M.D. 05/30/2025 Clinical Communication Division of Gastroenterology and Hepatology in [address] [address] Tylor Urbano M.D. 05/26/2025 11:05 AM EST - 05/26/2025 11:59 PM EST Hospital Encounter Division of Gastroenterology and Hepatology, [facility] in [address] [address] Tylor Urbano M.D. Diarrhea; Gastro-Esophageal Reflux Disease With Esophagitis Without Bleeding Discharge Disposition: Home or Self Care 05/24/2025 11:30 AM EST Office Visit Division of Gastroenterology and Hepatology in [address] [address] Tylor Urbano M.D. Diarrhea (Primary Dx); Gastro-Esophageal Reflux Disease With Esophagitis Without Bleeding 05/24/2025 Clinical Communication Division of Gastroenterology and Hepatology in [address] [address] Tylor Urbano M.D. 05/11/2025 3:10 PM EST Telemedicine Department of Allergy Medicine in [address] [address] Qamar Spangler M.D. Allergy Penicillin Antibiotic Personal History (Primary Dx); Adverse Effect Of Penicillins Initial 05/02/2025 Clinical Communication Division of Gastroenterology and Hepatology in [address] [address] Tylor Urbano M.D. Referral Request 04/29/2025 7:45 AM EDT Silent Schedule Department of Ophthalmology in [address] [place] [address] Kiki Hood M.D. 04/29/2025 7:30 AM EDT Comprehensive Visit Department of Ophthalmology in [place], [place] [address] [place] [address] Shaina Lyon M.D. Shebaclo, Kareen, M.D. Dermatochalasis Left (Primary Dx); Dermatochalasis Right; Brow Ptosis Bilateral; Ptosis Eyelid Bilateral 04/29/2025 Ancillary Procedure Department of Ophthalmology, [place] 04/04/2025 Refill Division of Gastroenterology and Hepatology in [place], [place] [address] [place] [address] Tylor Urbano M.D. Med Change Request from Last 3 Months Social History Tobacco Use Types Packs/Day Years Used Date Smoking Tobacco: Never Smokeless Tobacco: Never Tobacco Cessation:Counseling Given: Not Answered Alcohol Use Standard Drinks/Week Comments Not Currently 0 (1 standard drink = 0.6 oz pur e alcohol) Socially 1 drink [facility] Utilities Answer Date Recorded In the past 12 months has [employer] electric, gas, oil, or water company threatened [...] your living situation today? 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 [address] [place] [address] 08/03/2025 12:00 PM EST Appointment Department of Laboratory Medicine and Pathology, [facility] in [address] [address] Kiki Hood M.D. [address] [place] [phone] 08/03/2025 1:00 PM EST Ancillary Procedure Department of Ophthalmology in [address] [phone] Kiki Hood M.D. [address] [place] [address] 08/03/2025 2:00 PM EST Ancillary Procedure Department of Cardiovascular Diseases in [place], [place] [address] [place] [phone] Kiki Hood M.D. [address] [place] [phone] 08/03/2025 3:20 PM EST Comprehensive Visit Preoperative Clinic in [place], [place] [address] [place] [phone] [address] [facility] [place] [address] 08/15/2025 8:15 AM EST Hospital Encounter [place] [address] [facility] [place] [address] Kiki Hood M.D. [facility] [place] [phone] 08/15/2025 8:15 AM EST - 08/15/2025 10:45 AM EST Surgery [place] [address] [facility] [place] [phone] Kiki Hood M.D. [facility] [place] [address] BILATERAL EXTERNAL PTOSIS REPAIR 08/30/2025 3:15 PM EST Office Visit Department of Ophthalmology in [place] [address] [place] [phone] [facility] [place] [phone] Scheduled Procedures Name Priority Associated Diagnoses Date/Ti [...] Screening (Annual PHQ-2) 07/07/2024 COVID-19 Vaccine ( - season) 2025 05/14/2021, 09/04/2020, 08/17/2020, Additional history [...] [employer] Implanted Type Area Packaging Machine Operator Device Identifier Shelf Expiration Date Model / [...] in older people with normal cognition. Reference: https://pi.KeepRecipes.IN-PIPE TECHNOLOGY/us/amyvid-uspi.pdf Narrative 06/29/2025 9:42 AM EST REVISED REPORT: [...] collected for attenuation-correction and anatomic correlation purposes. [employer] software was utilized for additional post-processing and [...] separately with report available under accession # [id number]. Centiloid value: 3.2 Procedure Note Esteban Da [...] was collected forattenuation-correction and anatomic correlation purposes. [employer] software was utilized for additional post-processing andanalysis, [...] interpreted separately with report available under accession #[id number]. Centiloid value: 3.2 IMPRESSION: Abnormal study. There [...] as in older people with normalcognition. Reference: https://pi.KeepRecipes.com/us/amyvid-uspi.pdf us Duke YEPEZ NM PROCEDURES Edited Resu lt - Final * [...] volume loss without lobar predilection. us Duke Fan M.D. IM MRI PROCEDURES Final Resu lt * (ABNORMAL) Phospho-Tau 217 (05/31/2025 12:09 PM EST) [id number], P 0.554(H) pg/mL 06/01/2025 2:16 PM EST [facility] Comment: ----REFERENCE VALUE---- Negative: < or = 0.185 pg/mL Intermediate: 0.186 - 0.324 pg/mL Positive: > or = 0.325 pg/mL [id number] Interpretation SEE COMMENT 06/01/2025 2:16 PM EST [facility] Comment: An elevated (positive) [id number] result is consistent with a positive (abnormal) [...] been established in asymptomatic individuals. Elevations of wOll018 may be seen in individuals with impaired kidney function associated with chronic kidney disease and should be interpreted with caution in these situations. ----ADDITIONAL INFORMATION---- This test has been modified from the special diet cook's instructions. Its performance characteristics were determined by [facility] in a manner consistent with CLIA requirements. This test has not been cleared or approved by the U.S. Food and Drug Administration. The testing method is a chemiluminescent enzyme immunoassay manufactured by [employer] and performed on the Leotus analyzer. Values obtained with different assay methods or kits may be different and cannot be used interchangeably. This test is not intended as a screening or standalone diagnostic assay; correlation with clinical findings is recommended. Blood (Blood, Venous) 05/31/2025 12:09 PM EST 06/01/2025 1:25 PM EST us Marcia Overton M.D. LAB BLOOD NON ADD-ON Final Re sult [facility] [address] [place] [address] [facility] [address] [place] [address] * Apolipoprotein E Genotyping (05/31/2025 12:09 PM [...] do not alter a restriction site for Cover Maker I will not be detected by this assay. REFERENCES 1. ARMIDA 1997; 278:3646-5363 (PMID [id number]) 2. Maranda Med 2011; 13:597-605 (PMID [id number]) 3. [employer] 2014January 13. Retrieved from www.choosingwise ly.org/societies /estonian-colleg z-fn-chtlkmu -afjzrtla-bej-mt nomics/) A portion of the testing process was performed at [facility] site [id number]. 06/05/2025 2:40 PM EST [facility] Comment: ----ADDITIONAL INFORMATION---- A PCR-based assay, including Cover Maker I digestion of the amplified product, was utilized to identify the three common APOE alleles (epsilon2, epsilon3, and epsilon4). An online research opportunity called Minilogs (Jampp.org), a project of [employer], is available for the recipient of this genetic test. This patient registry collects de-identified genetic and health information to advance the knowledge of genetic variants. [facility] is a collaborator of [employer]. This may not be applicable for all [...] allogenic donors will interfere with testing. Call [facility] for instructions for testing patients who [...] developed and its performance characteristics determined by [facility] in a manner consistent with CLIA requirements. This test has not been cleared or approved by the U.S. Food and Drug Administration. Blood (Blood, Venous) 05/31/2025 12:09 PM EST 06/01/2025 1:22 PM EST us Marcia Overton M.D. LAB GENETIC TESTING Final Res ult [facility] [address] [place] [address], [facility] [address] [place] [address] * Creatinine with Estimated GFR (05/31/2025 12:09 PM EST) Creatinine 0.87 0.59 - 1.04 mg/dL 05/31/2025 12:59 PM EST [facility] Estimated GFR (eGFR) 68 >=60 mL/min/BSA 05/31/2025 12:59 PM EST [facility] Comment: Estimated GFR calculated using the 2020 CKD_EPI creatinine equation. Blood (Blood, Venous) 05/31/2025 12:09 PM EST 05/31/2025 12:28 PM EST us Marcia Overton M.D. LAB BLOOD ADD-ON Final Result [facility] [address] [place] [address], [facility] [address] [place] [address] * EGD (EsophagoGastroDuodenoscopy) Restricted (05/26/2025 1:40 PM [...] Lucy Dejesus R.N. Endoscopy Nurse Rey Deshpande Farmworker Fruit Tylor Urbano M.D. Proceduralist Attending Participation: I performed the entire procedure. Tylor Urbaon M.D. GI PROCEDURE ORDERABLES Final Result * [...] of bowel preparation was evaluated using the [employer] Bowel Preparation Scale with scores of: right [...] Role Lucy Dejesus R.N. Endoscopy Nurse Rey Mcintyre Endo Farmworker Fruit Tylor Urbano M.D. Proceduralist Attending Participation: I [...] The specimen is submitted entirely in C1. SLS 05/27/2025 2:12 PM EST [facility] Specimen Source A) Esophagus, lower third B) [...] of this case. 05/27/2025 2:12 PM EST [facility] Biopsy (Esophagus) 05/26/2025 1:18 PM EST Comment:esophagitis Biopsy (Esophagus) 05/26/2025 1:21 PM EST Comment:esophagitis Biopsy (Colon) 05/26/2025 1: 33 PM EST Tylor Urbano M.D. LAB SURG PATH ORDERABLES Final Result Performing Organization Address [facility] Co de Phone Number [facility] [address] [place] [address], [facility] [address] [place] [address] * Bacterial Culture, Aerobic + Susceptibility (05/26/2025 1:15 PM EST) Bacterial Culture, Aerobic + Susc >100,000 Mixed anaerobic Gram positive and Gram negative bruce. 05/29/2025 10:32 AM EST [facility] Aspirate (Duodenum) 05/26/2025 1:15 PM EST Tylor Urbano M.D. LAB MICROBIOLOGY - GENER AL ORDERABLES Final Result Performing Organization Address [facility] de Phone Number [facility] [address] [place] [address] [facility] [address] [place] [address] * Bacterial Culture, Anaerobic + Susceptibility (05/26/2025 1:15 PM EST) Bacterial Culture, Anaerobic No anaerobic bacteria isolated after 7 days of incubation. 06/03/2025 4:39 PM EST [facility] Aspirate (Duodenum) 05/26/2025 1:15 PM EST us Tylor Urbano M.D. LAB MICROBIOLOGY - GENER AL ORDERABLES Final Result Performing Organization Address [facility] Co de Phone Number [facility] [address] [place] [address], [facility] Clinical Lab [facility] [place] [address] * Automated VF - Extended - OU - Both Eyes (04/29/2025 9:41 AM EDT) Specimen (Source) Anatomical Location / Laterality Collection Method / Volume Collection Time Received Kiki Lin M.D. - 05/01/2025 10:39 PM EDT Right [...] functional upper blepharoplasty. us Kiki Hood M.D. OPHTH VISUAL FIELD Final Re sult * Eyes-Ophthalmology [...] PROCE DURES Final Result Performing Organization Address City/[facility]/ZIP Co de Phone Number IIIA NA * Thyroid Function [place] (01/18/2025 8:55 AM EDT) TSH, Sensitive 1.0 0.3 - 4.2 mIU/L 01/18/2025 10:25 AM EDT [facility] Blood (Blood, Venous) 01/18/2025 8:55 AM EDT 01/18/2025 9:37 AM EDT us Tylor Urbano M.D. LAB BLOOD ADD-ON Final R esult Performing Organization Address City/[facility]/ZIP Co de Phone Number [facility] [address] [place] [address], [facility] Lab [address] [place] [address] from Last 3 Months or Most Recently Relevant to Health Maintenance Additional Health Concerns Active Problems Noted Date Diagnosed Date Autogenerated Problem 05/16/2025 Insurance [employer]ARE [employer] Advance Directives For more information, please contact: [phone] * Full Code (Latest Code Status on File) Date Activated Date Inactivated Comments 10/13/2024 4:30 PM 10/14/2024 4:59 PM Question Answer Comments Full Code: Discussed Care Teams Gas Pumping Station Helper Relationship Specialty Start Date End Date Elsewhere, Pcp PCP - General Internal Medicine 08/25/24
--- OUTSIDE RECORDS SUMMARY | 2025-07-01 11:18 | XMS_ITS | Encounter Summary ---
Author Organization [facility] Address [address] [place] [address] Care Team Providers Care Drier Helper Name Role Phone Tylor Marmolejo MD Primary Care Provider + Source Comments Please be aware that You and/or your organization are solely responsible for the use, security, privacy, and any decisions made with any information you receive from [employer] Reason for Visit * Reason Comments Med Refill Encounter Details Date Type Department Care Team (Late st Contact Info) Description 06/29/2025 Refill [facility] Primary Care at [facility] [address] [facility] [address] [place] [address] Tylor Marmolejo MD [address] [facility] [address] [place] [address] Mixed hyperlipidemia (Primary Dx) Social [...] more drinks on one occasion? Never 04/08/2025 [facility] Housing Answer Date Recorded Living Situation Not on file 02/20/2023 Housing Problems Not on file 02/20/2023 [facility] Safety Answer Date Recorded Threatened Not on [...] Description 10/11/2025 1:00 PM EDT Office Visit [facility] Primary Care at [facility] [address] [facility] [address] [place] [address] Tylor Marmolejo MD [address] [facility] [address] [place] [address] documented as of this encounter Visit Diagnoses Diagnosis Mixed hyperlipidemia- Primary documented in this encounter Additional Health Concerns Infection Onset Date Last Indicated Resolved Time Gastrointestinal Rule-Out 08/27/2024 08/27/2024 Assessment Noted Time A fall risk assessment has been complete d for the patient 04/08/2025 8:38 AM EDT documented as of this encounter Care Teams Drier Helper Relationship Specialty Start Date End Date Tylor Marmolejo MD PCP - General Family Medicine 09/06/24 documented as of this encounter
--- OUTSIDE RECORDS SUMMARY | 2025-07-01 11:18 | XMS_ITS | Patient Health Record ---
Author Organization [facility] Address [address] [place] [address] Care Team Providers Care Senior Systems Architect Name Role Phone RICHY ROBINS Primary Care Provider Magali Burdick Unavailable [phone] Allergies Allergen (clinical drug ingredient) Drug/Non Drug Allergy documented on EMR Reaction Allergy Type Onset Date Status sulfur (uncoded) Unknown Allergy Act anthony ciprofloxacin Cipro Unknown Drug Allergy Act anthony Penicillium chrysogenum rebecca. chrysogenum allergenic extract Penicillium Notatum Unknown Drug Allergy Ac tive Reason For Referral No Information Medications Medication SIG (Take, Route, Frequency, Duration) Notes Start Date End Date Status [place] Thyroid 60 MG Tablet 1 tablet on [...] in an emergency: No Advance Directive: No Spiritism Preference: CHRISTIANITY Diet: Regular Problems Problem Type SNOMED Code ICD Code Onset Dates Problem Status W/U Status Risk Notes Problem Cystocele (555910097) Cystocele, unspecified (N81.10) Active confirmed Problem Dysuria (27473384) Dysuria (R30.0) Active confirmed Problem Screening for malignant neoplasm of breast (475169656) Encounter for screening mammogram for malignant neoplasm of breast (Z12.31) Active confirmed Problem Screening for malignant neoplasm of vagina (208430205) Encounter for screening for malignant neoplasm of vagina (Z12.72) Active confirmed Problem Routine gynecologic examination (175881571) Encounter for well woman exam with routine gynecological exam (Z01.419) Active confirmed Problem Screening for malignant neoplasm of colon (004577674) Encounter for screening fecal occult blood testing (Z12.11) Active confirmed Problem 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) Active confirmed Problem Midline cystocele (488305091) Midline cystocele (N81.11) Active confirmed Problem Vaginal discharge (255517458) Vaginal discharge (N89.8) Active confirmed Problem Prolapse of urethra (16292382) 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) Active confirmed Problem Burning sensation of vagina (finding) (193288687) Vaginal burning (N94.9) Active confirmed Plan Of Treatment Pending Test Test Name Order Date Mammogram Screening 01/05/2019 Mammogram Screening 02/09/2020 Mammogram Screening 02/09/2021 Insurance Providers Payer Name Payer Address Payer Phone Subscriber Number Group Number Insured Name Patient Relationship to Insured Coverage Start Date Coverage End Date [employer] [address] [address] [place] [address] [id number] Kathleen Wyatt Self - patient is the insured 9 Medical (General) History Medical History History ICD Code HIGH CHOLESTEROL 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
--- OUTSIDE RECORDS SUMMARY | 2025-07-01 11:18 | XMS_ITS | Encounter Summary ---
Author Organization Formerly [facility] Address [address] [place] [address] Care Team Providers Care Horse Doctor Name Role Phone Tylor Marmolejo MD Primary Care Provider + Source Comments Please be aware that You and/or your organization are solely responsible for the use, security, privacy, and any decisions made with any information you receive from [employer] [facility] Encounter Details Date Type Department Care Team (Late st Contact Info) Description 10/26/2024 [facility] Health Information Management [address] [place] [address] Provider, Not In System, ACID PUMPER-C Provider Not in System Social History Tobacco [...] on one occasion? Less than monthly 10/12/2024 [facility] Housing Answer Date Recorded Living Situation Not on file 02/20/2023 Housing Problems Not on file 02/20/2023 [facility] Safety Answer Date Recorded Threatened Not on [...] Description 10/11/2025 1:00 PM EDT Office Visit [facility] Primary Care at [facility] [address] [place] [address] Tylor Marmolejo MD [address] [facility] [address] [place] [address] documented as of this encounter Procedures Procedure Name Priority Date/Time Associated Diagnosis Comments HM MAMMOGRAPHY 11/24/2024 12:00 AM EDT documented in this encounter Results * HM Mammography (11/24/2024 12:00 AM EDT) Anatomical Region Laterality Modality Other us Not In System Provider [employer] MAINTENANCE Final Result documented in this encounter Visit Diagnoses Not on filedocumented in this encounter Additional Health Concerns Infection Onset Date Last Indicated Resolved Time Gastrointestinal Rule-Out 08/27/2024 08/27/2024 C. difficile Rule-Out 02/18/2025 02/18/20252024 4:42 PM EDT documented as of this encounter Care Teams Horse Doctor Relationship Specialty Start Date End Date Tylor Marmolejo MD PCP - General Family Medicine 09/06/24 documented as of this encounter
[2025-07-01 14:00] LABS: E. coli EAEC Not Detected (Not Detect.); E. coli EPEC Not Detected (Not Detect.); E. coli ETEC Not Detected (Not Detect.); E. coli STEC Not Detected (Not Detect.); Shigella sp./EIEC Not Detected (Not Detect.)
[2025-07-01 14:35] LABS: CDIFF Internal ctrl Dots and bkg OK (V); CDiff Gene PCR POSITIVE (Negative); CDiff Toxin Negative (Negative)
== END 2025-07-01 04:16 | disposition home or self-care (01) ==
LOC: HO.LNP 04:15
PROVIDERS: Visit Provider Physician Assistant Medical
DX: R19.7 Diarrhea, unspecified (principal)
CPT/HCPCS: 87324; 87338; 87493; 87507